=== PATIENT | male | born 1965 | race Two or more races ===

== ENCOUNTER → 2016-05-31 | Outpatient (CLI) | payer OTHER | END | disposition home or self-care (01) | LOC: LABPAT 12:58 | PROVIDERS: ATTEND Orthopaedic Surgery | DX: Z01.812 Encounter for preprocedural laboratory examination (principal) | CPT/HCPCS: 87070 ==

== ENCOUNTER → 2016-06-04 | Outpatient (CLI) | payer OTHER ==
[2016-06-04 13:11] LABS: Partial Thromboplastin Time 25.5 sec (22.0-30.0); Prothrombin Time 10.4 sec (9.0-12.0)
== END | disposition home or self-care (01) ==
LOC: LABPAT 12:49
PROVIDERS: ATTEND Orthopaedic Surgery
DX: Z01.812 Encounter for preprocedural laboratory examination (principal)
CPT/HCPCS: 36415; 84132; 85610; 85730

== ENCOUNTER 2016-06-21 10:43 | Inpatient (IN) | payer BC, OTHER ==
[2016-06-03 15:25] VITALS: BMI 32.9
--- NOTE | 2016-08-10 22:45 | HP ---
DATE OF ADMISSION: 08/11/2016 Jeancarlos Carreno is a 50-year-old patient seen with progressive right knee pain. After having treatment options discussed, he elected to proceed with right total knee arthroplasty. Consent regarding the procedure was obtained. Previous medical clearance has been obtained from Dr. Amadou Ulrich. Past medical history is noncontributory. PAST SURGICAL HISTORY: 1. Right knee arthroscopy. 2. Left total knee arthroplasty. His daily medications are ibuprofen as needed. ALLERGIES: NONE REPORTED. SOCIAL HISTORY: He smokes cigarettes. PHYSICAL EVALUATION OF RIGHT KNEE: Range of motion is negative 25 to 95. Tenderness along the medial and lateral joint lines. Crepitus along all 3 compartments. Ligaments stable. Hip rotation without pain. Distal neurovascular exam is intact. Right knee radiographs revealed severe osteoarthritis. IMPRESSION: Right knee osteoarthritis. PLAN: Right total knee arthroplasty.
[2016-08-11] MEDS ORDERED: ACETAMINOPHEN TAB 500 MG TAB PO ONE (05:00)
[2016-08-11] MEDS ORDERED: MELOXICAM 7.5 MG TAB PO ONE (05:00)
[2016-08-11] MEDS ORDERED: VANCOMYCIN 1,500 MG in SODIUM CHLORIDE 0.9% 250 ML IVPB ONE (05:00)
[2016-08-11] MEDS ORDERED: TRANEXAMIC ACID 1,000 MG in SODIUM CHLORIDE 0.9% 100 ML IVPB ONE ×4 (05:00)
[2016-08-11] MEDS ORDERED: LIDOCAINE 1% 20 ML VIAL (10MG/ML) FOR IV START INTRADERMA PRN (06:28)
[2016-08-11] MEDS ORDERED: MIDAZOLAM 2 MG/2 ML VIAL IV PRN (06:28)
[2016-08-11] MEDS ORDERED: DEXAMETHASONE SOD PHOSPHATE 10 MG/ML 1 ML VIAL IV ONE (06:28)
[2016-08-11] MEDS ORDERED: SCOPOLAMINE 1.5MG/72HR PATCH TRANSDERM ONE (06:28)
[2016-08-11] MEDS ORDERED: FAMOTIDINE 20 MG/2 ML VIAL IV PRN (06:28)
[2016-08-11] MEDS: LACTATED RINGERS 1,000 ML IV SCH (08:20)
[2016-08-11] MEDS ORDERED: ONDANSETRON 4 MG/2 ML VIAL IVP ONE (08:22)
[2016-08-11] MEDS ORDERED: ROPIVACAINE 1,100 MG, SODIUM CHLORIDE 0.9% 330 ML MISCELLANE PRN ×2 (10:02)
--- NOTE | 2016-08-11 10:04 | P.ONQ ---
Anesthesiology Proc Note - PNB - Peripheral Nerve Block Performed Right Adductor Canal Indication: Acute Post-Operative Pain, Requested by physician (Yolanda) Sedation Type: Sedate with meaningful contact maintained Preparation: Sterile Dressing Position: Supine Catheter: Indwelling (Pajunk) Needle Size: 100mm (4") Needle Gauge: 18 Technique: Ultrasound Injectate: 0.5% Ropivacaine (see comment for volume) (20cc) Blood Aspirated: No Pain Paresthesia on Injection Noted: No Resistance on Injection: Normal Events: Uneventful and Well Tolerated
[2016-08-11] MEDS ORDERED: ROPIVACAINE 246.25 MG, EPINEPHrine 0.5 MG, KETOROLAC 30 MG, cloNIDine HCL/PF 80 MCG, WA... MISCELLANE ONE ×5 (11:11)
[2016-08-11] MEDS ORDERED: HYDROmorphone (PF) 1 MG/ML ONE (11:51)
[2016-08-11] MEDS ORDERED: LIDOCAINE 1% INJ 10MG/ML (20 ML MDV) ONE (11:51)
[2016-08-11] MEDS ORDERED: TRANEXAMIC ACID 1,000 MG/10 ML VIAL ONE (11:51)
[2016-08-11] MEDS ORDERED: MIDAZOLAM 2 MG/2 ML VIAL ONE (11:51)
[2016-08-11] MEDS ORDERED: fentaNYL (PF) 50 MCG/ML 2 ML AMP ONE (11:51)
[2016-08-11] MEDS ORDERED: ROCURONIUM BROMIDE 10 MG/ML 10 ML VIAL IV ONE (11:51)
[2016-08-11] MEDS ORDERED: SODIUM CHLORIDE 0.9% 100 ML BAG ONE (11:51)
[2016-08-11] MEDS ORDERED: PROPOFOL 10 MG/ML 20 ML VIAL IV ONE (11:51)
[2016-08-11] MEDS ORDERED: NEOSTIGMINE 1 MG/ML 10 ML VIAL ONE (11:51)
[2016-08-11] MEDS ORDERED: ONDANSETRON 4 MG/2 ML VIAL ONE (11:51)
[2016-08-11] MEDS ORDERED: SUCCINYLCHOLINE CHLORIDE 100 MG/5 ML SYR IV ONE (11:51)
[2016-08-11] MEDS ORDERED: GLYCOPYRROLATE 0.2 MG/ML 2 ML VIAL ONE (11:51)
[2016-08-11] MEDS ORDERED: ceFAZolin 3,000 MG in SODIUM CHLORIDE 0.9% IRRIGATIO 3,000 ML IRRIGATION ONE (12:15)
[2016-08-11] MEDS ORDERED: LACTATED RINGERS 1,000 ML IV ONE ×2 (14:06→15:44)
--- NOTE | 2016-08-11 14:21 | P.OP ---
Date of Procedure: 08/11/16 Preoperative Diagnosis: Right knee osteoarthritis Postoperative Diagnosis: Right knee osteoarthritis Procedure(s) Performed: Right total knee arthroplasty Implants: 1. Microport size 7 right cemented femur 2. Microport size 7 cemented tibial component 3. Microport size 7 10 mm polyethylene tibial insert 4. Microport all polyethylene 38 mm cemented patella Anesthesia: regional (Adductor canal block), local, spinal Surgeon: Calvin Guerrero Application Chemist #1: Italo Amato Estimated Blood Loss (ml): 200 Pathology: other (Bone) Condition: stable Disposition: PACU Indications for Procedure: 50-year-old patient seen with symptomatic right knee osteoarthritis. After having treatment options discussed, he elected to proceed with right total knee arthroplasty. Operative Findings: See description of procedure Description of Procedure: Patient was taken to the operative suite. Patient underwent a spinal anesthetic by the department of anesthesia. Patient was given preoperative IV intake antibiotics and TXA. A well-padded tourniquet was placed about the right lower extremity. The lower extremity was then prepped and draped in the normal sterile orthopedic fashion. A standard anterior incision was made sharply through skin. Dissection was taken down through the subcutaneous soft tissues down to the extensor mechanism. A medial arthrotomy was performed, patella was everted and knee was flexed. There was advanced osteoarthritis noted. A proximal tibial cutting guide was positioned. Proximal tibial cut was made. A distal intramedullary femoral cutting guide was positioned, distal femoral cut made. We placed the appropriate sizing guide and selected the appropriate size. A distal 4-in-1 femoral cutting block was positioned, distal femoral cuts were made. At this point we did note some bleeding from the bone and the tourniquet was insufflated to 350. We now placed a trial femoral component into position, along with an appropriate size tibial tray and insert. We now took the knee through range of motion and had full extension good flexion and good overall soft tissue balance noted. The patella was everted and a flush cut made with patellar quad tendon. We templated the patella, appropriate drill holes were made. An appropriate trial patella was positioned , knee was taken through full range of motion with the patella tracking very nicely. The trial patella was removed. Drill holes were made through the femoral component. All trial components were removed after marking off the appropriate rotation of the tibia. Retractors were now positioned along the proximal tibia. An appropriate keel punch was made with the appropriate size tibial guide. At this point appropriate size implants were chosen and opened. The joint was irrigated copiously with pulse lavage mechanical irrigation. The posterior capsule was infiltrated local analgesic. Cautery was utilized in the posterior capsule area at this point. We mixed antibiotic methylmethacrylate. Once the methyl methacrylate was ready, the tibial component was cemented into place removing any excess methylmethacrylate. The femoral component was cemented into place removing the removing any excess methylmethacrylate. We then inserted the appropriate size polyethylene tibial insert. We made sure that it was locked into position. We took the knee into full extension, and then back in a flexion making sure we had removed any excess methylmethacrylate. The patellar component was then cemented down and secured with clamp. Excess methylmethacrylate removed. We kept the knee in full extension, patellar clamp in position until methylmethacrylate had hardened. Once it had hardened the patellar clamp was removed. The knee was taken through full range of motion. The patella tracked nicely. There was good soft tissue balancing. The tourniquet was now released. Additional hemostasis was achieved via electrocautery. A second gram of TXA was given. The wound again was irrigated with pulse lavage mechanical irrigation. The extensor mechanism was repaired with Vicryl. We checked the repair with range of motion and it was stable. The subcutaneous soft tissues were repaired with Vicryl in layers. The skin was approximated with pernio/Dermabond. Sterile dressings were applied followed by loose web roll and Agusto bandage. The patient was transferred to a bed, and taken to recovery in stable and satisfactory condition. [place] ORR assisted with the procedure.
[2016-08-11] MEDS ORDERED: NALOXONE 0.4 MG/ML 1 ML VIAL IV PRN (14:22)
[2016-08-11] MEDS ORDERED: HYDROmorphone 1 MG/ML 1 ML SYRINGE IVP PRN ×3 (14:22)
[2016-08-11] MEDS ORDERED: hydrOXYzine PAMOATE 25 MG CAP PO PRN (14:22)
[2016-08-11] MEDS ORDERED: HYDROcodone/APAP 7.5-325MG 1 EACH TAB PO PRN (14:22)
[2016-08-11] MEDS ORDERED: ONDANSETRON 4 MG/2 ML VIAL IVP PRN (14:22)
[2016-08-11] MEDS: HYDROmorphone 1 MG/ML 1 ML SYRINGE IVP PRN ×2 (14:37→14:42)
--- NOTE | 2016-08-11 15:00 | XR ---
EXAMINATION TYPE: XR knee limited RT DATE OF EXAM: 08/11/2016 2:48 PM CLINICAL HISTORY: Right knee pain and arthritis status post total knee replacement earlier today. TECHNIQUE: Portable AP and crosstable lateral views of the right knee are obtained immediately posto peratively. COMPARISON: None FINDINGS: Metallic hardware from total right knee arthroplasty is seen and appears satisfactory in a lignment and position. There is evidence of recent surgery with diffuse subcutaneous gas and soft ti ssue swelling noted. IMPRESSION: METALLIC HARDWARE FROM TOTAL RIGHT KNEE ARTHROPLASTY IS SATISFACTORY IN ALIGNMENT.
[2016-08-11] MEDS ORDERED: hydrALAZINE HCL 20 MG/ML 1 ML VIAL IVP ONE (15:05)
[2016-08-11] MEDS ORDERED: HYDROmorphone 1 MG/ML 1 ML SYRINGE IVP ONE (15:36)
[2016-08-11] MEDS: traMADol 50 MG TAB PO SCH ×2 (17:54→22:58)
[2016-08-11] MEDS: HYDROcodone/APAP 7.5-325MG 1 EACH TAB PO PRN (17:56)
[2016-08-11] MEDS: SENNOSIDES-DOCUSATE SODIUM 1 EACH TAB PO SCH (22:59)
[2016-08-11] MEDS: ENOXAPARIN 30 MG/0.3 ML SYRINGE SQ SCH (23:00)
[2016-08-12] MEDS: HYDROcodone/APAP 7.5-325MG 1 EACH TAB PO PRN ×4 (05:05→20:56)
[2016-08-12] MEDS: LACTATED RINGERS 1,000 ML IV SCH (06:14)
[2016-08-12 07:37] LABS: Basophils % (A) 0 %; CH 25.4; CHCM 30.7; Eosinophils # (A) 0.1 k/uL (0-0.7); Eosinophils % (A) 1 %; HCT 32.4 % (39.0-53.0); HDW 2.91; HGB 10.4 gm/dL (13.0-17.5); Hypochromasia Moderate; Luc # (Auto) 0.12; Luc % (Auto) 1; Lymphocytes # (A) 3.1 k/uL (1.0-4.8); Lymphocytes % (A) 25 %; MCH 26.5 pg (25.0-35.0); MCV 82.9 fL (80.0-100.0); Mean Platelet Volume 6.7; Monocytes # (A) 0.8 k/uL (0-1.0); Monocytes % (A) 7 %; Neutrophils # (A) 8.3 k/uL (1.3-7.7); Neutrophils % (A) 66 %; RBC 3.91 m/uL (4.30-5.90); RDW 15.3 % (11.5-15.5); WBC 12.5 k/uL (3.8-10.6); WBC (Perox) 11.64
[2016-08-12] MEDS: traMADol 50 MG TAB PO SCH ×4 (07:56→20:56)
[2016-08-12] MEDS: MELOXICAM 7.5 MG TAB PO SCH (07:56)
[2016-08-12] MEDS: MULTIVITAMINS, THERA 1 EACH TAB PO SCH (07:56)
[2016-08-12] MEDS: ENOXAPARIN 30 MG/0.3 ML SYRINGE SQ SCH ×2 (07:56→20:57)
[2016-08-12] MEDS: FAMOTIDINE 20 MG TAB PO SCH (10:29)
--- NOTE | 2016-08-12 11:06 | P.PN ---
Subjective Principal diagnosis: Status post right total knee arthroplasty Patient is seen today resting in his hospital bed, he appears comfortable. His pain is well-controlled at this time. Exam today well with therapy. He denies any headaches, lightheadedness, chest pain, shortness of breath. Objective - Vital Signs Vital signs: Vital Signs Temp 98.2 F 08/12/16 07:00 Pulse 56 L 08/12/16 08:00 Resp 18 08/12/16 08:00 BP 124/56 08/12/16 07:00 Pulse Ox 98 08/12/16 07:00 Intake & Output 08/11/16 08/12/16 08/12/16 18:59 06:59 18:59 Intake Total 2431 240 Output Total 390 1700 750 Balance 2041 -1460 -750 Weight 92.533 kg Intake: IV 2251 240 Lactated Ringers 1,000 ml 240 @ 20 mls/hr IV .Q24H [facility] Rx#:[id number] Oral 180 Output: Urine 190 1700 750 Uretheral (Kam) 750 Estimated Blood Loss 200 Other: Voiding Method Indwelling Catheter Indwelling Catheter Indwelling Catheter # Voids 1 - Exam Right lower extremity: Incision is clean, dry, and intact. Minimal soft tissue swelling present throughout the right lower extremity. Calf is soft, no tenderness with palpation. Plantar flexion, dorsiflexion, EHL, FHL are intact. Sensory exam light touch throughout the extremities intact, cap refills less than 2 seconds. - Labs CBC & Chem 7: 08/12/16 06:59 08/11/16 08:18 Labs: Abnormal Lab Results - Last 24 Hours (Table) 08/12/16 Range/Units 06:59 WBC 12.5 H (3.8-10.6) k/uL RBC 3.91 L (4.30-5.90) m/uL Hgb 10.4 L (13.0-17.5) gm/dL Hct 32.4 L (39.0-53.0) % Neutrophils # 8.3 H (1.3-7.7) k/uL Assessment and Plan Plan: Assessment: 1. Postop day #1 status post right total knee arthroplasty Plan: 1. Pain control, continue supportive oral medication 2. GI and DVT prophylaxis, continue Lovenox 3. Ice and elevate/daily dressing changes 4. Encourage incentive spirometer 5. Medical recommendations 6. Discharge planning: Patient will be likely discharged home tomorrow Time with Patient: Less than 30
--- NOTE | 2016-08-12 11:08 | P.DS ---
Providers Date of admission: 08/11/16 07:54 Expected date of discharge: 08/13/16 Attending physician: Calvin Guerrero Consults: 08/11/16 14:22 Consult Physician Routine Consulting Provider: Amadou Ulrich Consult Reason/Comments: Medical management Do you want consulting provider notified?: Yes Primary care physician: Stated None Hospital Course: Date of admission: 08/11/2016 Date of discharge: 08/13/2016 Admission diagnosis: Status post right total knee arthroplasty Discharge diagnosis: Same Attending physician: Dr. Dr. Guerrero Surgical procedures: Right total knee arthroplasty Brief history: Patient is a 50-year-old male with a history of progressive primary right knee osteoarthritis. At this point patient has failed conservative treatment measures and has opted to proceed with a elective right total knee arthroplasty. Hospital course: Details of patient's surgery can be found in operative report. Patient tolerated the procedure well and was subsequently transported to orthopedic floor. Patient's orthopeidc and medical care was provided daily. Patient had daily laboratory tests performed for evaluation of overall blood counts. Patient had daily physical therapy to include strengthening range of motion as well as education with walker ambulation. Patient had daily CPM usage as part of their physical therapy program. Patient was treated with Lovenox for their postoperative DVT prophylaxis during their inpatient stay. Patient was noted to have a relatively uneventful postoperative course. Patient reported satisfactory pain control with oral pain medications by postoperative day 0. Patient showed satisfactory progress with physical therapy. Patient moved steadily through the program and had no difficulty meeting the goals by postoperative day 2. Given patient's otherwise satisfactory course and having met physical therapy goals, plan is to discharge patient home on postoperative day 2. Discharge condition/disposition: Patient will be discharged home in stable condition. Discharge medications: Instructions are given on resumption of patient's normal daily medications per primary care recommendation, in addition patient will be prescribed [place] 7.5 mg/325 mg, tramadol 50 mg, Colace 100 mg, Pepcid 20 mg, aspirin 325 mg. Discharge instructions: 1. Wound care and infection precautions, [keep incision dry and covered while showering], no lotions, creams, moisturizers. No soaking, tubs, pools, hottubs. Do not scrub over the incision. 2. Weight-bear [as tolerated] with walker / cane until follow-up. 3. Ice and elevate when necessary. Do not exceed 20 minutes per hour with ice pack. 4. Utilize compression sleeve until seen at first follow up appointment. 5. Visiting nursing care. 6. Home physical therapy [including home CPM]. 7. Pain meds and anticoagulants per prescription. 8. Pain medication has potential to cause constipation. Increase oral fluid and fiber intake. Contact primary care provider if you have not had a bowel movement within 48 hours after discharge 9. No anti-inflammatory medication until discussed at first post operative visit, this including Motrin, Aleve, Mobic, Diclofenac. 10. Follow up in office at 2 weeks postop with Elgin Amato PA-C 11. Follow up with your primary care doctor 7-10 days after discharge. 12. Contact [facility] with any questions, . Procedures: Right total knee arthroplasty Patient Condition at Discharge: Good Plan - Discharge Summary New Discharge Prescriptions: Aspirin 325 mg PO BID #60 tab Docusate [Colace] 100 mg PO DAILY #30 capsule Famotidine [Pepcid] 20 mg PO DAILY #30 tablet HYDROcodone/APAP 7.5-325MG [[place] 7.5] 1 - 2 each PO Q6HR PRN #60 tab PRN Reason: Pain traMADol HCl [Ultram] 50 mg PO Q6H PRN #40 tab PRN Reason: Pain Discharge Medication List Aspirin 325 mg PO BID #60 tab 08/13/16 [Rx] Docusate [Colace] 100 mg PO DAILY #30 capsule 08/13/16 [Rx] Famotidine [Pepcid] 20 mg PO DAILY #30 tablet 08/13/16 [Rx] HYDROcodone/APAP 7.5-325MG [[place] 7.5] 1 - 2 each PO Q6HR PRN #60 tab 08/13/16 [ Rx] traMADol HCl [Ultram] 50 mg PO Q6H PRN #40 tab 08/13/16 [Rx] Follow up Appointment(s)/Referral(s): Amadou Ulrich DO [Doctor of Osteopathic Medicine] - 08/24/16 11:40 am Italo Amato PAC [PHYSICIAN STORE RECEIVER] - 08/27/16 2:40 pm Activity/Diet/Wound Care/Special Instructions: Orthopedic Discharge Instructions: 1. Wound care and infection precautions, keep incision dry and covered while showering, no lotions, creams, moisturizers. No soaking, pools, hot tubs. Do not scrub over incision. 2. Weight-bear as tolerated with walker / cane until follow-up. 3. Ice and elevate when necessary. Do not exceed 20 minutes per hour with ice pack. 4. Utilize compression sleeve until seen at first follow up appointment. 5. Visiting nursing care. 6. Home physical therapy including home CPM. 7. Pain meds and anticoagulants per prescription. 8. Pain medication has potential to cause constipation. Increase oral fluid and fiber intake. Contact primary care provider if you have not had a bowel movement within 48 hours after discharge. 9. No anti-inflammatory medication until discussed at first post operative visit, this including Motrin, Aleve, Mobic, Diclofenac. 10. Follow up in office at 2 weeks postop with Elgin Amato PA-C 11. Follow up with your primary care doctor 7-10 days after discharge. 12. Contact [facility] with any questions, . Discharge Disposition: HOME WITH HOME HEALTH SERVICES
--- NOTE | 2016-08-12 13:38 | P.CONS ---
History of Present Illness - Reason for Consult Consult date: 08/11/16 Medical management Requesting physician: Calvin Guerrero - Chief Complaint Right knee pain - History of Present Illness Patient is a 50-year-old male, patient of Dr. Ulrich in the outpatient setting, with past medical history detailed below significant for right knee osteoarthritis that has not responded to medical management as an outpatient. Patient was admitted to the hospital for elective right total knee arthroplasty on 08/11/[address] Guerrero. Patient tolerated procedure well. Patient is evaluated on the surgical floor where he is postop day #1. Patient is doing well. Denies chills, fevers, nausea, vomiting, shortness of breath, chest pain , abdominal pain, numbness or tingling. Right knee pain controlled with current pain regimen. Patient is urinating without difficulty. Patient is tolerating diet. Afebrile. Past Medical History Past Medical History: Osteoarthritis (OA), Pneumonia Additional Past Medical History / Comment(s): OCC. BLEEDING HEMORRHOIDS. History of Any Multi-Drug Resistant Organisms: None Reported Past Surgical History: Joint Replacement, Orthopedic Surgery Additional Past Surgical History / Comment(s): 02/16/16 total L knee arthroplasty. Other surgical hx: RIGHT KNEE ARTHROSCOPY(1983), COLONOSCOPY Past Anesthesia/Blood Transfusion Reactions: No Reported Reaction Additional Past Anesthesia/Blood Transfusion Reaction / Comm: NO HX BLOOD TRANSFUSION Past Psychological History: No Psychological Hx Reported Smoking Status: Current every day smoker Past Alcohol Use History: Occasional Additional Past Alcohol Use History / Comment(s): DRINKS 8-10 12 OZ BEERS PER WEEK. SMOKES 2 PPD. , HAS BEEN SMOKING FOR 30 + YEARS. Past Drug Use History: None Reported - Past Family History Mother Family Medical History: Cancer Additional Family Medical History / Comment(s): STOMACH Father Family Medical History: Cancer Medications and Allergies Home Medications Medication Instructions Recorded Confirmed Type No Known Home Medications [No 06/03/16 08/11/16 History Known Home Medications] Allergies Allergy/AdvReac Type Severity Reaction Status Date / Time No Known Allergies Allergy Verified 08/11/16 08:12 Physical Exam Vitals: Vital Signs Temp Pulse Resp BP Pulse Ox 08/12/16 08:00 56 L 18 08/12/16 07:00 98.2 F 56 L 18 124/56 98 08/12/16 05:05 65 116/62 08/12/16 04:00 16 08/11/16 23:00 98.4 F 63 16 97/54 95 08/11/16 20:00 16 08/11/16 19:45 98.4 F 79 16 108/66 97 08/11/16 18:00 79 165/90 08/11/16 17:45 77 155/74 08/11/16 17:30 55 L 150/86 08/11/16 17:15 66 141/77 08/11/16 17:00 64 118/68 08/11/16 16:45 75 111/75 08/11/16 16:30 53 L 118/68 08/11/16 16:15 53 L 133/68 08/11/16 16:00 98.2 F 62 16 143/72 95 08/11/16 15:45 59 L 16 140/69 95 08/11/16 15:38 60 16 136/72 96 08/11/16 15:30 56 L 16 157/80 96 08/11/16 15:15 63 18 154/75 96 08/11/16 15:00 56 L 16 173/82 96 08/11/16 14:50 56 L 16 178/79 92 L 08/11/16 14:45 50 L 18 191/92 98 08/11/16 14:30 98.6 F 70 14 200/99 98 Intake and Output 08/11/16 08/12/16 08/12/16 22:59 06:59 14:59 Intake Total 260 160 Output Total 50 1700 750 Balance 210 -1540 -750 Intake: IV 80 160 Lactated Ringers 1,000 ml 80 160 @ 20 mls/hr IV .Q24H [facility] Rx#:[id number] Oral 180 Output: Urine 50 1700 750 Uretheral (Kam) 750 Other: Voiding Method Indwelling Catheter Indwelling Catheter # Voids 1 Weight 92.533 kg GENERAL: Pt awake and alert, well-appearing, well-nourished, and in no acute distress. HEAD: Atraumatic, normocephalic. EYES: Pupils equal, round, and reactive to light, extraocular movements intact, sclera anicteric, conjunctiva are normal. ENT: Moist mucous membranes. NECK: Supple without lymphadenopathy or JVD. LUNGS: Breath sounds clear to auscultation bilaterally. No wheezes, rales, or rhonchi. HEART: Heart S1, S2, no S3 or S4. Regular rate and rhythm. No murmurs, rubs or gallops. ABDOMEN: Soft, nontender, nondistended, normoactive bowel sounds. No guarding, no rebound. No masses or organomegaly appreciated. EXTREMITIES: 2+ peripheral pulses. Right knee dressing dry and intact. No calf pain. NEUROLOGICAL: Pt oriented x 3. Cranial nerves II through XII grossly intact. Strength and sensation grossly intact. PSYCH: Normal mood, normal affect. SKIN: Warm, dry, intact. Normal turgor. No rashes or lesions. Results CBC & Chem 7: 08/12/16 06:59 08/11/16 08:18 Labs: Abnormal Lab Results - Last 24 Hours (Table) 08/12/16 Range/Units 06:59 WBC 12.5 H (3.8-10.6) k/uL RBC 3.91 L (4.30-5.90) m/uL Hgb 10.4 L (13.0-17.5) gm/dL Hct 32.4 L (39.0-53.0) % Neutrophils # 8.3 H (1.3-7.7) k/uL Assessment and Plan Plan: Impression and plan: 1. Right knee osteoarthritis status post total right knee arthroplasty on 08/11. 2. Leukocytosis, suspect reactive. 3. Anemia, postop suspect minimal blood loss and hemodilution. 4. 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 5. Nicotine dependence. 6. Alcohol use. Continue surgical management by surgical service. Continue supportive treatment and pain management. Increase activity as tolerated. Continue DVT prophylaxis. Encourage incentive spirometry use. Patient will follow-up with Dr. Ulrich in the office in 1 week after discharge. The above impression and plan have been discussed and directed by Dr. Ulrich. [place]o QUINTANA acting as scribe for Dr. Ulrich.
[2016-08-12 15:05] VITALS: RESP 16
[2016-08-12] MEDS: SENNOSIDES-DOCUSATE SODIUM 1 EACH TAB PO SCH (20:55)
[2016-08-12 23:34] VITALS: BP 130/66
[2016-08-13] MEDS: HYDROcodone/APAP 7.5-325MG 1 EACH TAB PO PRN ×3 (02:10→12:10)
[2016-08-13 07:04] VITALS: PULSE 58; TEMP 97.3
[2016-08-13] MEDS: ENOXAPARIN 30 MG/0.3 ML SYRINGE SQ SCH (07:04)
[2016-08-13] MEDS: MULTIVITAMINS, THERA 1 EACH TAB PO SCH (07:05)
[2016-08-13] MEDS: MELOXICAM 7.5 MG TAB PO SCH (07:05)
[2016-08-13] MEDS: FAMOTIDINE 20 MG TAB PO SCH (07:05)
[2016-08-13] MEDS: LACTATED RINGERS 1,000 ML IV SCH (07:08)
--- NOTE | 2016-08-13 10:16 | P.PN ---
Subjective Principal diagnosis: Status post right total knee arthroplasty Patient is seen today resting in his hospital bed, he appears comfortable. His pain is well-controlled at this time. Exam today well with therapy. He denies any headaches, lightheadedness, chest pain, shortness of breath. Objective - Vital Signs Vital signs: Vital Signs Temp 97.3 F L 08/13/16 07:00 Pulse 58 L 08/13/16 08:00 Resp 16 08/13/16 08:00 BP 130/66 08/12/16 23:00 Pulse Ox 98 08/13/16 07:00 Intake & Output 08/12/16 08/13/16 08/13/16 18:59 06:59 18:59 Intake Total 200 1050 Output Total 1150 1850 600 Balance -950 -800 -600 Intake: IV 200 Lactated Ringers 1,000 ml 200 @ 20 mls/hr IV .Q24H [facility] Rx#:[id number] Oral 1050 Output: Urine 1150 1850 600 Uretheral (Kam) 750 Other: Voiding Method Urinal Urinal Urinal # Voids 3 2 - Exam Right lower extremity: Incision is clean, dry, and intact. Small hematoma is present on the lateral aspect of the distal incision, the skin is intact. Minimal soft tissue swelling present throughout the right lower extremity. Calf is soft, no tenderness with palpation. Plantar flexion, dorsiflexion, EHL, FHL are intact. Sensory exam light touch throughout the extremities intact, cap refills less than 2 seconds. - Labs CBC & Chem 7: 08/12/16 06:59 08/11/16 08:18 Assessment and Plan Plan: Assessment: 1. Postop day #2 status post right total knee arthroplasty Plan: 1. Pain control, continue supportive oral medication 2. GI and DVT prophylaxis, will be discharged on aspirin 325 mg twice a day 3. Ice and elevate/daily dressing changes 4. Encourage incentive spirometer 5. Medical recommendations 6. Discharge planning: Patient will be discharged home today Time with Patient: Less than 30
== END 2016-08-13 12:25 | disposition home health service (06) | DRG 470 ==
LOC: 2ORMAIN 08-11 07:54 → 3SUR 08-11 14:27
PROVIDERS: ADMIT Orthopaedic Surgery; ATTEND Orthopaedic Surgery
PROC: 0SRC0J9 Replacement of Right Knee Joint with Synthetic Substitute, Cemented, Open Approach (ICD-10-PCS; principal; 2016-08-11 11:10)
DX: M17.11 Unilateral primary osteoarthritis, right knee (principal); D50.0 Iron deficiency anemia secondary to blood loss (chronic); F17.210 Nicotine dependence, cigarettes, uncomplicated; K64.9 Unspecified hemorrhoids; Z96.652 Presence of left artificial knee joint
CPT/HCPCS: 84132; 85025; 88300

== ENCOUNTER → 2016-10-21 | Outpatient (CLI) | payer BC ==
[2016-10-21 13:30] LABS: Basophils # (A) 0.1 k/uL (0-0.2); Basophils % (A) 1 %; CHCM 30.6; Eosinophils # (A) 0.3 k/uL (0-0.7); Eosinophils % (A) 4 %; HCT 38.9 % (39.0-53.0); HDW 2.99; HGB 12.1 gm/dL (13.0-17.5); Hypochromasia Moderate; Luc # (Auto) 0.15; Luc % (Auto) 2; Lymphocytes # (A) 2.7 k/uL (1.0-4.8); Lymphocytes % (A) 33 %; MCH 25.4 pg (25.0-35.0); MCV 81.9 fL (80.0-100.0); Mean Platelet Volume 6.6; Monocytes # (A) 0.5 k/uL (0-1.0); Monocytes % (A) 6 %; Neutrophils # (A) 4.4 k/uL (1.3-7.7); Neutrophils % (A) 54 %; RBC 4.75 m/uL (4.30-5.90); RDW 15.5 % (11.5-15.5); WBC 8.1 k/uL (3.8-10.6)
== END | disposition home or self-care (01) ==
LOC: LABPAT 13:11
PROVIDERS: ATTEND Orthopaedic Surgery
DX: Z01.812 Encounter for preprocedural laboratory examination (principal); T81.89XD Other complications of procedures, not elsewhere classified, subsequent encounter
CPT/HCPCS: 85025

== ENCOUNTER 2016-10-25 12:13 | Day surgery (SDC) | payer BC ==
[2016-10-21 12:10] VITALS: BMI 31.3
--- NOTE | 2016-10-24 14:10 | HP ---
DATE OF SURGERY: 10/25/2016 Jeancarlos Carreno is a 51-year-old patient seen with a persistent nonhealing wound, distal incision area, right knee with history of total knee arthroplasty. At his point I recommended irrigation and debridement with secondary closure of that right knee persistent wound. I discussed the procedure , risks, complications, benefits, and recovery. Patient was agreeable. Consent was obtained. Past medical history is noncontributory. Past surgical history is right knee arthroscopy, right total knee arthroplasty, left total knee arthroplasty. DAILY MEDICATIONS: [place] as needed. ALLERGIES: NONE REPORTED. SOCIAL HISTORY: Patient currently smokes cigarettes, two packs per day. PHYSICAL EVALUATION OF THE RIGHT KNEE: Range of motion is -3 to 90 degrees. There is no pain with ( ) motion. There is no effusion present. There is a persistent wound along the distal incision area measuring 1 x 1 cm. There is no evidence for erythema or infective process. Ligaments are stable. Homans and Av are negative. Distal neurovascular exam is intact. Right knee radiographs revealed a stable appearing total knee arthroplasty. IMPRESSION: Nonhealing right knee distal incisional wound. PLAN: Irrigation and debridement secondary to closure right knee wound. JYOTHI
[~2016-10-25 12:13] MED LIST: DEXAMETHASONE SOD PHOSPHATE 10 MG/ML 1 ML VIAL IV ONE; LACTATED RINGERS 1,000 ML IV SCH; LIDOCAINE 1% 20 ML VIAL (10MG/ML) FOR IV START INTRADERMA PRN; MIDAZOLAM 2 MG/2 ML VIAL IV PRN; ONDANSETRON 4 MG/2 ML VIAL IVP ONE; SCOPOLAMINE 1.5MG/72HR PATCH TRANSDERM ONE; ceFAZolin 2 GM in SODIUM CHLORIDE 0.9% 100 ML IVPB ONE
[2016-10-25 12:35] VITALS: RESP 16
[2016-10-25] MEDS ORDERED: PROPOFOL 10 MG/ML 20 ML VIAL IV ONE (15:22)
[2016-10-25] MEDS ORDERED: fentaNYL (PF) 50 MCG/ML 2 ML AMP ONE (15:22)
[2016-10-25] MEDS ORDERED: LIDOCAINE 1% INJ 10MG/ML (20 ML MDV) ONE (15:22)
[2016-10-25] MEDS ORDERED: BUPIVACAINE (PF) 0.25% 30 ML VIAL SQ ONE (15:40)
[2016-10-25 16:02] VITALS: TEMP 98.4
--- NOTE | 2016-10-25 16:02 | P.OP ---
Date of Procedure: 10/25/16 Preoperative Diagnosis: Nonhealing wound right knee Postoperative Diagnosis: Same Procedure(s) Performed: Incision with irrigation debridement and secondary closure right knee wound Implants: Anesthesia: MAC Surgeon: Calvin Guerrero Photography Editor #1: Italo Amato Estimated Blood Loss (ml): 5 Pathology: none sent Condition: stable Disposition: PACU Indications for Procedure: 51-year-old patient seen with a persistent right knee wound. I recommended incision with irrigation debridement. Patient was agreeable and consent was obtained. Operative Findings: see description of procedure Description of Procedure: Patient was taken to the operative suite. Patient underwent monitored anesthesia by the department of anesthesia. He received preoperative IV antibiotics. The right lower extremity was now prepped and draped in the normal sterile orthopedic fashion. The nonhealing wound measured 1.5 cm x 1 cm. I performed an incisional debridement with a #15 scalpel along the edges. We got down to some good bleeding tissue. I now debrided the deep portion utilizing a #15 blade and a ronger intermittently to perform an excisional debridement. We got down to some bleeding tissue. There is no evidence that the wound penetrated deeper than the subcutaneous tissues. The wound was irrigated. The skin margins were approximated with #2-0 nylon suture. The surrounding subcuticular area was infiltrated with quarter percent plain Marcaine. Sterile dressings were applied. Patient was awakened, transferred to a bed and then recovery having tolerated procedure well. No tourniquet was utilized. The [facility] assisted procedure.
[2016-10-25] MEDS: HYDROmorphone 1 MG/ML 1 ML SYRINGE IVP PRN ×2 (16:22→16:27)
[2016-10-25] MEDS ORDERED: LACTATED RINGERS 1,000 ML IV ONE (16:31)
[2016-10-25] MEDS ORDERED: HYDROcodone/APAP 5-325MG 1 EACH TAB PO ONE (16:50)
[2016-10-25 17:19] VITALS: BP 157/86; PULSE 66
== END 2016-10-25 18:00 | disposition home or self-care (01) ==
LOC: OR 12:13
PROVIDERS: ATTEND Orthopaedic Surgery
DX: T81.89XA Other complications of procedures, not elsewhere classified, initial encounter (principal); Z96.653 Presence of artificial knee joint, bilateral; F17.210 Nicotine dependence, cigarettes, uncomplicated
CPT/HCPCS: 11042; J1100; J0690; J2405; J2001; J3010; J1170; J2704

== ENCOUNTER 2018-04-25 16:57 | Emergency (ER) | payer BC, OTHER ==
[2018-04-25 17:02] VITALS: RESP 18
[2018-04-25] MEDS ORDERED: IBUPROFEN 600 MG TAB PO STA (17:13)
--- NOTE | 2018-04-25 17:16 | ED ---
General Adult HPI - General Chief complaint: Extremity Problem,Nontraumatic Stated complaint: right wrist swelling; itchy Time Seen by Provider: 04/25/18 17:09 Source: patient, RN notes reviewed, old records reviewed Mode of arrival: ambulatory Limitations: no limitations - History of Present Illness Initial comments: 52-year-old male patient with pmhx of osteoarthritis of right knee presents to ED with itchy and red right wrist. Patient states this has been going on for approximately 2 days. Patient also has a secondary complaint of a slip and fall today in which he fell on his outstretched right wrist. Patient states that he has a small amount of pain, however his primary complaint is the redness and itchiness. Patient has full range of motion of wrist. Patient denies any other injury during fall. Patient denies any trauma to head or neck or loss consciousness. Patient denies nausea vomiting diarrhea, fever or chills. Patient denies use of blood thinners. Pt denies any recent penetrating trauma. Patient denies other complaints. Systemic: Pt denies fatigue, myalgia, fever/chills. Pt denies weakness, night sweats, weight loss. Neuro: Pt denies headache, visual disturbances, syncope or pre-syncope. HEENT: Pt denies ocular discharge or irritation, otalgia, rhinorrhea, pharyngitis or notable lymphadenopathy. Cardiopulmonary: Pt denies chest pain, SOB, heart palpitations, dyspnea on exertion. Abdominal/GI: Pt denies abdominal pain, n/v/d. : Pt denies dysuria, burning w/ urination, frequency/urgency. Denies new onset urinary or bowel incontinence. MSK: Pt denies myalgia, loss of strength or function in extremities. Neuro: Pt denies new onset weakness, paresthesias. - Related Data Previous Rx's Medication Instructions Recorded Cephalexin [Keflex] 500 mg PO Q8HR #21 cap 10/25/16 Hydrocodone/Acetaminophen [[place] 1 each PO Q6HR PRN #20 tab 10/25/16 5-325] Cephalexin [Keflex] 500 mg PO Q6HR 10 Days #40 cap 04/25/18 Allergies Allergy/AdvReac Type Severity Reaction Status Date / Time No Known Allergies Allergy Verified 04/25/18 17:02 Review of Systems ROS Statement: Those systems with pertinent positive or pertinent negative responses have been documented in the HPI. ROS Other: All systems not noted in ROS Statement are negative. Past Medical History Past Medical History: Osteoarthritis (OA), Pneumonia Additional Past Medical History / Comment(s): pneumonia in July History of Any Multi-Drug Resistant Organisms: None Reported Past Surgical History: Joint Replacement, Orthopedic Surgery Additional Past Surgical History / Comment(s): 02/16/16 total L knee arthroplasty. knee arthroscopies, COLONOSCOPY, right knee replaced July 2016 Past Anesthesia/Blood Transfusion Reactions: No Reported Reaction Additional Past Anesthesia/Blood Transfusion Reaction / Comment(s): NO HX BLOOD TRANSFUSION Past Psychological History: No Psychological Hx Reported Smoking Status: Current every day smoker Past Alcohol Use History: Occasional Past Drug Use History: Marijuana - Past Family History Mother Family Medical History: Cancer Additional Family Medical History / Comment(s): STOMACH Father Family Medical History: Cancer General Exam - General Exam Comments Initial Comments: Constitutional: NAD, AOX3, Pt has pleasant affect. HEENT: NC/AT, trachea midline, neck supple, no lymphadenopathy. Posterior pharynx non erythematous, without exudates. External ears appear normal, without discharge. Mucous membranes moist. Eyes PERRLA, EOM intact. There is no scleral icterus. No pallor noted. Cardiopulmonary: RRR, no murmurs, rubs or gallops, no JVD noted. Lungs CTAB in anterior and posterior baird. No peripheral edema. Abdominal exam: Abdomen soft and non-distended. Abdomen non-tender to palpation in all 4 quadrants. Bowel sounds active in LLQ. No hepatosplenomegaly. No ecchymosis Neuro: CN II-XII grossly intact. No nuchal rigidity. MSK: Mild amount of erythema at distal radius of R wrist. Distal radius is mildly tender to palpation. No snuffbox tenderness. Full active ROM of wrist. Radial pulse +2, capillary refill <2 seconds. No posterior calf tenderness bilaterally, homans sign negative bilaterally. Posterior tibialis and radial pulse +2 bilaterally. Sensation intact in upper and lower extremities. Full active ROM in upper and lower extremities, 5/5 stregnth. Limitations: no limitations Course Vital Signs 04/25/18 16:59 Temperature 98 F Pulse Rate 77 Respiratory 18 Rate Blood Pressure 185/78 O2 Sat by Pulse 97 Oximetry Medical Decision Making - Medical Decision Making 52-year-old male patient with pmhx of osteoarthritis of right knee presents to ED with itchy and red right wrist. Patient states this has been going on for approximately 2 days. Patient also has a secondary complaint of a slip and fall today in which he fell on his outstretched right wrist. Patient states that he has a small amount of pain, however his primary complaint is the redness and itchiness. Pt VSS, afebrile. Physical exam displayed: Mild amount of erythema at distal radius of R wrist. No streaking. Distal radius is mildly tender to palpation. Full active ROM of wrist. Radial pulse +2, capillary refill <2 seconds. Laboratory investigations revealed nonimpressive CBC/CMP. Plain film of R wrist and hand did not display acute process. Pt dx with cellulitis, placed on keflex. Pt to f/u with PCP in 1-2 days. Pt to return to ED if new s/sx develop or if condition worsens in anyway. Case discussed in depth with Dr. Manzano. On repeat exam pt had mild snuffbox tenderness, placed in thumb spica splint, pt to f/u with orthopedic consult tomorrow. - Lab Data Result diagrams: 04/25/18 17:16 04/25/18 17:16 Lab Results 04/25/18 04/25/18 Range/Units 17:16 17:16 WBC 10.6 (3.8-10.6) k/uL RBC 5.58 (4.30-5.90) m/uL Hgb 13.9 (13.0-17.5) gm/dL Hct 44.7 (39.0-53.0) % MCV 80.1 (80.0-100.0) fL MCH 24.9 L (25.0-35.0) pg MCHC 31.0 (31.0-37.0) g/dL RDW 15.5 (11.5-15.5) % Plt Count 507 H (150-450) k/uL Neutrophils % 58 % Lymphocytes % 32 % Monocytes % 5 % Eosinophils % 3 % Basophils % 1 % Neutrophils # 6.1 (1.3-7.7) k/uL Lymphocytes # 3.3 (1.0-4.8) k/uL Monocytes # 0.5 (0-1.0) k/uL Eosinophils # 0.4 (0-0.7) k/uL Basophils # 0.1 (0-0.2) k/uL Hypochromasia Slight Sodium 137 (137-145) mmol/L Potassium 4.5 (3.5-5.1) mmol/L Chloride 104 (98-107) mmol/L Carbon Dioxide 23 (22-30) mmol/L Anion Gap 10 mmol/L BUN 8 L (9-20) mg/dL Creatinine 0.68 (0.66-1.25) mg/dL Est GFR (CKD-EPI)AfAm >90 (>60 ml/min/1.73 sqM) Est GFR (CKD-EPI)NonAf >90 (>60 ml/min/1.73 sqM) Glucose 113 H (74-99) mg/dL Calcium 8.9 (8.4-10.2) mg/dL Total Bilirubin 0.4 (0.2-1.3) mg/dL AST 27 (17-59) U/L ALT 44 (21-72) U/L Alkaline Phosphatase 136 H (38-126) U/L Total Protein 7.6 (6.3-8.2) g/dL Albumin 4.2 (3.5-5.0) g/dL Disposition Clinical Impression: Cellulitis, Sprain of wrist, left Disposition: HOME SELF-CARE Condition: Stable Instructions (If sedation given, give patient instructions): Cellulitis (ED) Additional Instructions: Patient to adhere to previously discussed treatment plan and will take medication(s) as directed. Patient to follow up with PCP in 1-2 days. Patient to return to ED if symptoms do not improve. Prescriptions: Cephalexin [Keflex] 500 mg PO Q6HR 10 Days #40 cap Is patient prescribed a controlled substance at d/c from ED?: No Referrals: Amadou Ulrich DO [Primary Care Provider] - 1-2 days Lamin Panchal MD [STAFF PHYSICIAN] - 1-2 days Time of Disposition: 17:52
[2018-04-25 17:30] LABS: Basophils # (A) 0.1 k/uL (0-0.2); Basophils % (A) 1 %; Eosinophils # (A) 0.4 k/uL (0-0.7); Eosinophils % (A) 3 %; HCT 44.7 % (39.0-53.0); HGB 13.9 gm/dL (13.0-17.5); Hypochromasia Slight; Lymphocytes # (A) 3.3 k/uL (1.0-4.8); Lymphocytes % (A) 32 %; MCH 24.9 pg (25.0-35.0); MCV 80.1 fL (80.0-100.0); Mean Platelet Volume 5.8; Monocytes # (A) 0.5 k/uL (0-1.0); Monocytes % (A) 5 %; Neutrophils # (A) 6.1 k/uL (1.3-7.7); Neutrophils % (A) 58 %; Platelet Count 507 k/uL (150-450); RBC 5.58 m/uL (4.30-5.90); RDW 15.5 % (11.5-15.5); WBC 10.6 k/uL (3.8-10.6)
[2018-04-25 17:37] LABS: ALT 44 U/L (21-72); AST 27 U/L (17-59); Albumin 4.2 g/dL (3.5-5.0); Alkaline Phosphatase 136 U/L (38-126); Anion Gap 10 mmol/L; Blood Urea Nitrogen 8 mg/dL (9-20); Calcium 8.9 mg/dL (8.4-10.2); Carbon Dioxide 23 mmol/L (22-30); Chloride 104 mmol/L (98-107); Glucose 113 mg/dL (74-99); Potassium 4.5 mmol/L (3.5-5.1); Sodium 137 mmol/L (137-145); Total Bilirubin 0.4 mg/dL (0.2-1.3); Total Protein 7.6 g/dL (6.3-8.2)
--- NOTE | 2018-04-25 17:42 | XR ---
EXAMINATION TYPE: XR wrist complete RT DATE OF EXAM: 04/25/2018 COMPARISON: NONE HISTORY: Wrist pain TECHNIQUE: 4 views FINDINGS: There is some spurring at the scaphoid trapezium joint and the first carpometacarpal joint. I see no fracture nor dislocation. Metacarpals are intact. IMPRESSION: There is some osteoarthritis. No fracture seen.
--- NOTE | 2018-04-25 17:43 | XR ---
EXAMINATION TYPE: XR hand complete RT DATE OF EXAM: 04/25/2018 COMPARISON: NONE HISTORY: Hand and wrist pain TECHNIQUE: 3 views FINDINGS: Metacarpals are intact. There is mild spurring at the IP joints. There is some spurring in the intercarpal joints. I see no fracture. IMPRESSION: Mild osteoarthritis. No fracture seen. No evidence of inflammatory arthritis.
[2018-04-25 17:55] VITALS: BP 131/71; PULSE 66; TEMP 98.7
== END 2018-04-25 18:04 | disposition home or self-care (01) ==
LOC: EC 16:57
DX: S63.501A Unspecified sprain of right wrist, initial encounter (principal); L03.113 Cellulitis of right upper limb; M17.11 Unilateral primary osteoarthritis, right knee; F17.200 Nicotine dependence, unspecified, uncomplicated; Z87.01 Personal history of pneumonia (recurrent); Z96.653 Presence of artificial knee joint, bilateral; Z98.890 Other specified postprocedural states; W01.0XXA Fall on same level from slipping, tripping and stumbling without subsequent striking against object, initial encounter; Y92.69 Other specified industrial and construction area as the place of occurrence of the external cause; Y99.0 Civilian activity done for income or pay
CPT/HCPCS: 29125; 36415; 80053; 85025; 99284

== ENCOUNTER 2021-03-31 19:38 | Observation (INO) | payer OTHER ==
[2021-03-31] MEDS ORDERED: ASPIRIN 81 MG PO STA (20:11)
--- NOTE | 2021-03-31 20:14 | ED ---
General Adult HPI - General Chief complaint: Chest Pain Stated complaint: Chest pain Time Seen by Provider: 03/31/21 19:56 Source: patient, RN notes reviewed Mode of arrival: ambulatory Limitations: no limitations - History of Present Illness Initial comments: Patient is a pleasant 55-year-old male presenting to the emergency department with concerns for chest discomfort. Onset of symptoms was 2 hours ago. Discomfort was mild to moderate. Discomfort is now near resolved. Discomfort felt like pressure. No associated dyspnea or nausea. Patient was a little bit sweaty. Patient was lightheaded. No history of similar symptoms previously. No leg pain or leg swelling. - Related Data Home Medications Medication Instructions Recorded Confirmed amLODIPine/ATORVASTATIN 1 tab PO DAILY 03/31/21 03/31/21 [amLODIPine/ATORVASTATIN 5-10 MG] tadalafiL 20 mg PO Q72H PRN 03/31/21 03/31/21 Allergies Allergy/AdvReac Type Severity Reaction Status Date / Time No Known Allergies Allergy Verified 03/31/21 20:58 Review of Systems ROS Statement: Those systems with pertinent positive or pertinent negative responses have been documented in the HPI. ROS Other: All systems not noted in ROS Statement are negative. Constitutional: Denies: fever Eyes: Denies: eye pain ENT: Denies: ear pain Respiratory: Denies: cough Cardiovascular: Reports: as per HPI, chest pain Endocrine: Denies: fatigue Gastrointestinal: Denies: abdominal pain, nausea Genitourinary: Denies: dysuria Musculoskeletal: Denies: back pain Skin: Denies: rash Neurological: Denies: weakness Past Medical History Past Medical History: Hypertension, Osteoarthritis (OA), Pneumonia Additional Past Medical History / Comment(s): pneumonia in July History of Any Multi-Drug Resistant Organisms: None Reported Past Surgical History: Joint Replacement, Orthopedic Surgery Additional Past Surgical History / Comment(s): 02/16/16 total L knee arthroplasty. knee arthroscopies, COLONOSCOPY, right knee replaced July 2016 Past Anesthesia/Blood Transfusion Reactions: No Reported Reaction Additional Past Anesthesia/Blood Transfusion Reaction / Comment(s): NO HX BLOOD TRANSFUSION Past Psychological History: No Psychological Hx Reported Smoking Status: Current every day smoker Past Alcohol Use History: Occasional Past Drug Use History: Marijuana - Past Family History Mother Family Medical History: Cancer Additional Family Medical History / Comment(s): STOMACH Father Family Medical History: Cancer General Exam Limitations: no limitations General appearance: alert, in no apparent distress Head exam: Present: normocephalic Eye exam: Present: normal appearance Neck exam: Present: normal inspection Respiratory exam: Present: normal lung sounds bilaterally. Absent: chest wall tenderness Cardiovascular Exam: Present: regular rate, normal rhythm Expanded Peripheral pulses: 2+: Radial (R), Radial (L), Posterior Tibialis (R), Posterior Tibialis (L), Dorsalis Pedis (R), Dorsalis Pedis (L) GI/Abdominal exam: Present: soft. Absent: tenderness Extremities exam: Present: normal inspection. Absent: pedal edema, calf tenderness Neurological exam: Present: alert Psychiatric exam: Present: normal affect, normal mood Skin exam: Present: normal color Course Vital Signs 03/31/21 03/31/21 03/31/21 19:45 20:06 21:12 Temperature 97.9 F Pulse Rate 73 73 66 Respiratory 18 18 18 Rate Blood Pressure 103/58 109/65 107/59 O2 Sat by Pulse 96 97 94 L Oximetry EKG Findings - EKG Comments: EKG Findings:: Normal sinus rhythm 3-67. MA 170. QRS and 24. QT 420. QTc 443. Normal axis. Right bundle branch block. No acute ST change. Medical Decision Making - Medical Decision Making Patient reevaluated and resting comfortably in bed. Patient family updated on results and plan. Dr. Ulrich has been paged for admission of this patient. - Lab Data Result diagrams: 03/31/21 20:19 03/31/21 20:19 Lab Results 03/31/21 03/31/21 03/31/21 Range/Units 20:19 20:19 20:19 WBC 6.1 (3.8-10.6) k/uL RBC 5.12 (4.30-5.90) m/uL Hgb 12.2 L (13.0-17.5) gm/dL Hct 40.7 (39.0-53.0) % MCV 79.4 L (80.0-100.0) fL MCH 23.9 L (25.0-35.0) pg MCHC 30.1 L (31.0-37.0) g/dL RDW 16.3 H (11.5-15.5) % Plt Count 405 (150-450) k/uL MPV 6.9 Neutrophils % 63 % Lymphocytes % 29 % Monocytes % 6 % Eosinophils % 1 % Basophils % 1 % Neutrophils # 3.8 (1.3-7.7) k/uL Lymphocytes # 1.8 (1.0-4.8) k/uL Monocytes # 0.4 (0-1.0) k/uL Eosinophils # 0.1 (0-0.7) k/uL Basophils # 0.0 (0-0.2) k/uL Hypochromasia Moderate Anisocytosis Slight Microcytosis Slight PT 10.2 (9.0-12.0) sec INR 0.9 (<1.2) APTT 27.3 (22.0-30.0) sec D-Dimer 0.47 (<0.60) mg/L FEU Sodium 135 L (137-145) mmol/L Potassium 4.0 (3.5-5.1) mmol/L Chloride 101 (98-107) mmol/L Carbon Dioxide 22 (22-30) mmol/L Anion Gap 12 mmol/L BUN 20 (9-20) mg/dL Creatinine 0.66 (0.66-1.25) mg/dL Est GFR (CKD-EPI)AfAm >90 (>60 ml/min/1.73 sqM) Est GFR (CKD-EPI)NonAf >90 (>60 ml/min/1.73 sqM) Glucose 109 H (74-99) mg/dL Calcium 7.8 L (8.4-10.2) mg/dL Magnesium 2.0 (1.6-2.3) mg/dL Total Bilirubin 0.3 (0.2-1.3) mg/dL AST 68 H (17-59) U/L ALT 63 H (4-49) U/L Alkaline Phosphatase 148 H (38-126) U/L Troponin I (0.000-0.034) ng/mL Total Protein 6.5 (6.3-8.2) g/dL Albumin 3.5 (3.5-5.0) g/dL 03/31/21 Range/Units 20:19 WBC (3.8-10.6) k/uL RBC (4.30-5.90) m/uL Hgb (13.0-17.5) gm/dL Hct (39.0-53.0) % MCV (80.0-100.0) fL MCH (25.0-35.0) pg MCHC (31.0-37.0) g/dL RDW (11.5-15.5) % Plt Count (150-450) k/uL MPV Neutrophils % % Lymphocytes % % Monocytes % % Eosinophils % % Basophils % % Neutrophils # (1.3-7.7) k/uL Lymphocytes # (1.0-4.8) k/uL Monocytes # (0-1.0) k/uL Eosinophils # (0-0.7) k/uL Basophils # (0-0.2) k/uL Hypochromasia Anisocytosis Microcytosis PT (9.0-12.0) sec INR (<1.2) APTT (22.0-30.0) sec D-Dimer (<0.60) mg/L FEU Sodium (137-145) mmol/L Potassium (3.5-5.1) mmol/L Chloride (98-107) mmol/L Carbon Dioxide (22-30) mmol/L Anion Gap mmol/L BUN (9-20) mg/dL Creatinine (0.66-1.25) mg/dL Est GFR (CKD-EPI)AfAm (>60 ml/min/1.73 sqM) Est GFR (CKD-EPI)NonAf (>60 ml/min/1.73 sqM) Glucose (74-99) mg/dL Calcium (8.4-10.2) mg/dL Magnesium (1.6-2.3) mg/dL Total Bilirubin (0.2-1.3) mg/dL AST (17-59) U/L ALT (4-49) U/L Alkaline Phosphatase (38-126) U/L Troponin I 0.015 (0.000-0.034) ng/mL Total Protein (6.3-8.2) g/dL Albumin (3.5-5.0) g/dL - Radiology Data Radiology results: image reviewed (Chest x-ray shows no acute process) Disposition Clinical Impression: Chest pain Disposition: ADMITTED IP TO THIS [facility] Is patient prescribed a controlled substance at d/c from ED?: No Referrals: Amadou Ulrich DO [Primary Care Provider] - 1-2 days Decision Time: 21:15
[2021-03-31 20:30] LABS: Anisocytosis Slight; Basophils % (A) 1 %; Eosinophils # (A) 0.1 k/uL (0-0.7); Eosinophils % (A) 1 %; HCT 40.7 % (39.0-53.0); HGB 12.2 gm/dL (13.0-17.5); Hypochromasia Moderate; Lymphocytes # (A) 1.8 k/uL (1.0-4.8); Lymphocytes % (A) 29 %; MCH 23.9 pg (25.0-35.0); MCHC 30.1 g/dL (31.0-37.0); MCV 79.4 fL (80.0-100.0); Mean Platelet Volume 6.9; Microcytosis Slight; Monocytes # (A) 0.4 k/uL (0-1.0); Monocytes % (A) 6 %; Neutrophils # (A) 3.8 k/uL (1.3-7.7); Neutrophils % (A) 63 %; Platelet Count 405 k/uL (150-450); RBC 5.12 m/uL (4.30-5.90); RDW 16.3 % (11.5-15.5); WBC 6.1 k/uL (3.8-10.6)
--- NOTE | 2021-03-31 20:35 | XR ---
EXAMINATION TYPE: XR chest 2V DATE OF EXAM: 03/31/2021 COMPARISON: NONE HISTORY: Chest pain TECHNIQUE: 2 view FINDINGS: There is no heart failure nor confluent pneumonic infiltrate. Heart size is normal. Costoph renic angles are clear. There are no hilar masses. There are chest leads. Bony thorax is intact. IMPRESSION: No active creep only disease. Normal heart.
[2021-03-31 20:39] LABS: ALT 63 U/L (4-49); AST 68 U/L (17-59); African American GFR (CKD) >90 (>60 ml/min/1.73 sqM); Albumin 3.5 g/dL (3.5-5.0); Alkaline Phosphatase 148 U/L (38-126); Anion Gap 12 mmol/L; Blood Urea Nitrogen 20 mg/dL (9-20); Calcium 7.8 mg/dL (8.4-10.2); Carbon Dioxide 22 mmol/L (22-30); Chloride 101 mmol/L (98-107); Glucose 109 mg/dL (74-99); Non-African American GFR(CKD) >90 (>60 ml/min/1.73 sqM); Sodium 135 mmol/L (137-145); Total Bilirubin 0.3 mg/dL (0.2-1.3); Total Protein 6.5 g/dL (6.3-8.2)
[2021-03-31 20:53] LABS: INR 0.9 (<1.2); Partial Thromboplastin Time 27.3 sec (22.0-30.0); Prothrombin Time 10.2 sec (9.0-12.0)
[2021-03-31] MEDS ORDERED: NITROGLYCERIN SL TABS 0.4 MG TAB SUBLINGUAL PRN (21:16)
[2021-04-01] MEDS: NITROGLYCERIN OINT 1 INCH/GM PACKET TOPICAL SCH ×3 (07:34→11:35)
[2021-04-01] MEDS ORDERED: ASPIRIN 325 MG TAB PO SCH (09:00)
[2021-04-01 09:23] LABS: Chol/HDL Ratio 4.54 Ratio; LDL Cholesterol,Calculated 44.8 mg/dL (0.0-131.0)
--- NOTE | 2021-04-01 09:35 | P.CRDCN ---
History of Present Illness History of present illness: HISTORY OF PRESENTING ILLNESS Thousand 55-year-old male with history of hypertension, hyperlipidemia, tobacco abuse who presents secondary chest pain for a few hours while sitting. Patient states he had been feeling fairly well however yesterday while he is sitting watching TV developed a substernal chest pressure and tightness which lasted for approximately 2 hours. He denies any association with any movement. He denies any other associated nausea, diaphoresis or shortness breath. He has not had anything similar in the past. He came to the ER and blood tests were sodium 135, creatinine 0.6, d-dimer 0.47, AST 68, ALP 63, troponin 0.15, 0.02, 0.015, total cholesterol 111, LDL 44, HDL 18, coronavirus positive, hemoglobin 12.2, white blood cell 6.1. EKG shows right bundle branch block without significant ST or T wave abnormalities. He states the pain only lasted 2 hours and has had no recurrence and feels back to normal. He does smoke a pack a day since the age of 14 and was able to quit for a few years however still smoking. Denies any underlying COPD. He does have a chronic cough but he states no significant change recently. REVIEW OF SYSTEMS At the time of my exam: CONSTITUTIONAL: Denies fever or chills. CARDIOVASCULAR: +chest pain, chronic mild shortness of breath, no orthopnea, PND or palpitations. RESPIRATORY: +chronic cough. GASTROINTESTINAL: Denies abdominal pain, diarrhea, constipation, nausea or vomiting. MUSCULOSKELETAL: Denies myalgias. NEUROLOGIC: Denies numbness, tingling or weakness. ENDOCRINE: Denies fatigue, weight change, polydipsia or polyurina. GENITOURINARY: Denies burning, hematuria or urgency with micturation. HEMATOLOGIC: Denies history of anemia or bleeding. PHYSICAL EXAMINATION Vital signs reviewed. CONSTITUTIONAL: No apparent distress. HEENT: Head is normocephalic. Pupils are equal, round. Sclerae anicteric. Mucous membranes of the mouth are moist. No JVD. No carotid bruit. CHEST EXAMINATION: Lungs are clear to auscultation. No chest wall tenderness is noted on palpation or with deep breathing. HEART EXAMINATION: Regular rate and rhythm. S1, S2 heard. No murmurs, gallops or rub. ABDOMEN: Soft, nontender. Positive bowel sounds. EXTREMITIES: 2+ peripheral pulses, no lower extremity edema and no calf tenderness. NEUROLOGIC EXAMINATION: Patient is awake, alert and oriented x3. ASSESSMENT 1. Atypical chest pain, troponins normal 3, acute Yoel syndrome ruled out, d- dimer normal 2. COVID-19 infection, no significant pneumonia noted on chest x-ray 3. Tobacco abuse 4. Hypertension 5. Hyperlipidemia 6. RBBB PLAN His chest pain appears atypical and troponins normal. May be related to COVID- 19 infection however no significant pneumonia noted. D-dimer is normal and do not suspect PE. We will check 2-D echo and if unrevealing patient may be discharged home with outpatient follow-up May consider outpatient stress testing. Past Medical History Past Medical History: Hypertension, Osteoarthritis (OA), Pneumonia Additional Past Medical History / Comment(s): pneumonia in July History of Any Multi-Drug Resistant Organisms: None Reported Past Surgical History: Joint Replacement, Orthopedic Surgery Additional Past Surgical History / Comment(s): 02/16/16 total L knee arthroplasty. knee arthroscopies, COLONOSCOPY, right knee replaced July 2016 Past Anesthesia/Blood Transfusion Reactions: No Reported Reaction Additional Past Anesthesia/Blood Transfusion Reaction / Comment(s): NO HX BLOOD TRANSFUSION Past Psychological History: No Psychological Hx Reported Smoking Status: Current every day smoker Past Alcohol Use History: Occasional Additional Past Alcohol Use History / Comment(s): DRINKS 8-10 12 OZ BEERS PER WEEK. down to 1-1/2 PPD. , HAS BEEN SMOKING FOR 30 + YEARS. Past Drug Use History: Marijuana - Past Family History Mother Family Medical History: Cancer Additional Family Medical History / Comment(s): STOMACH Father Family Medical History: Cancer Medications and Allergies Home Medications Medication Instructions Recorded Confirmed Type amLODIPine/ATORVASTATIN 1 tab PO DAILY 03/31/21 03/31/21 History [amLODIPine/ATORVASTATIN 5-10 MG] tadalafiL 20 mg PO Q72H PRN 03/31/21 03/31/21 History Allergies Allergy/AdvReac Type Severity Reaction Status Date / Time No Known Allergies Allergy Verified 03/31/21 20:58 Physical Exam Vitals: Vital Signs Temp Pulse Resp BP Pulse Ox 04/01/21 07:35 98.2 F 55 L 18 141/66 95 04/01/21 06:21 62 18 144/73 95 04/01/21 04:00 59 L 18 144/86 92 L 03/31/21 23:00 58 L 18 99/50 91 L 03/31/21 21:12 66 18 107/59 94 L 03/31/21 20:06 73 18 109/65 97 03/31/21 19:45 97.9 F 73 18 103/58 96 Intake and Output 03/31/21 04/01/21 04/01/21 22:59 06:59 14:59 Other: Weight 90.718 kg 90.718 kg Results 03/31/21 20:19 03/31/21 20:19 Cardiac Enzymes 03/31/21 03/31/21 03/31/21 Range/Units 20:19 20:19 21:45 AST 68 H (17-59) U/L Troponin I 0.015 0.020 (0.000-0.034) ng/mL 03/31/21 Range/Units 23:53 AST (17-59) U/L Troponin I 0.015 (0.000-0.034) ng/mL Coagulation 03/31/21 Range/Units 20:19 PT 10.2 (9.0-12.0) sec APTT 27.3 (22.0-30.0) sec Lipids 04/01/21 Range/Units 05:25 Triglycerides 111.00 (0.00-149.00) mg/dL Cholesterol 86.00 (0.00-200.00) mg/dL HDL Cholesterol 18.90 L (40.00-60.00) mg/dL Cholesterol/HDL Ratio 4.54 Ratio CBC 03/31/21 Range/Units 20:19 WBC 6.1 (3.8-10.6) k/uL RBC 5.12 (4.30-5.90) m/uL Hgb 12.2 L (13.0-17.5) gm/dL Hct 40.7 (39.0-53.0) % Plt Count 405 (150-450) k/uL Comprehensive Metabolic Panel 03/31/21 Range/Units 20:19 Sodium 135 L (137-145) mmol/L Potassium 4.0 (3.5-5.1) mmol/L Chloride 101 (98-107) mmol/L Carbon Dioxide 22 (22-30) mmol/L BUN 20 (9-20) mg/dL Creatinine 0.66 (0.66-1.25) mg/dL Glucose 109 H (74-99) mg/dL Calcium 7.8 L (8.4-10.2) mg/dL AST 68 H (17-59) U/L ALT 63 H (4-49) U/L Alkaline Phosphatase 148 H (38-126) U/L Total Protein 6.5 (6.3-8.2) g/dL Albumin 3.5 (3.5-5.0) g/dL Current Medications Generic Name Dose Route Start Last Admin Trade Name Freq PRN Reason Stop Dose Admin Aspirin 325 mg 04/01/21 09:00 04/01/21 09:15 Aspirin 325 Mg Tab PO 325 mg DAILY ADRIAN Administration Nitroglycerin 0.4 mg 03/31/21 21:16 Nitroglycerin Sl Tabs 0.4 Mg Tab SUBLINGUAL Q5M PRN Chest Pain Nitroglycerin 1 inch 04/01/21 00:00 04/01/21 07:35 Nitroglycerin Oint 1 Inch/Gm Packet TOPICAL 1 inch Q6HR ADRIAN Administration Sodium Chloride 10 ml 04/01/21 09:00 04/01/21 09:15 Sodium Chloride 0.9% Flush 10 Ml Syringe IV 10 ml BID ADRIAN Administration Intake and Output 03/31/21 04/01/21 04/01/21 22:59 06:59 14:59 Other: Weight 90.718 kg 90.718 kg Patient Weight 04/02/21 06:59 Weight 90.718 kg 03/31/21 20:19 03/31/21 20:19
[2021-04-01] MEDS ORDERED: DEXAMETHASONE SOD PHOSPHATE 10 MG/ML 1 ML VIAL IVP SCH (10:00)
[2021-04-01] MEDS ORDERED: CHOLECALCIFEROL 25 MCG (1000 IU) TABLET PO SCH (10:00)
[2021-04-01] MEDS ORDERED: ASCORBIC ACID 500 MG TAB PO SCH (10:00)
[2021-04-01] MEDS ORDERED: ZINC SULFATE 220 MG CAP PO SCH (10:00)
--- NOTE | 2021-04-01 11:27 | ECHOF ---
Referral Reason:re: LV function MEASUREMENTS -------- HEIGHT: 170.2 cm WEIGHT: 90.7 kg BP: 141/66 RVIDd: 4.2 cm (< 3.3) IVSd: 1.5 cm (0.6 - 1.1) LVIDd: 4.4 cm (3.9 - 5.3) LVPWd: 1.3 cm (0.6 - 1.1) IVSs: 1.7 cm LVIDs: 3.1 cm LVPWs: 1.5 cm LAESV Index (A-L): 29.87 ml/m MV E Rene: 0.98 m/s MV DecT: 233 ms MV A Rene: 1.02 m/s MV E/A Ratio: 0.96 AV maxP.14 mmHg AV meanP.92 mmHg AR PHT: 468 ms FINDINGS -------- Sinus rhythm. This was a technically adequate study. The left ventricular size is normal. There is moderate concentric left ventricular hypertrophy. O verall left ventricular systolic function is normal with, an EF between 55 - 60 %. The right ventricle is moderately enlarged. LA is midly dilated 29-33ml/m2. The right atrium was not well visualized. Interatrial and interventricular septum intact. Trace amount of aortic regurgitation. There is mild aortic stenosis present. The maximum velocit y across the aortic valve is 3.13m/s. Peak/mean gradient across the Aortic Valve is 39.14mmHg / 19. 92mmHg. Mild mitral regurgitation is present. Unable to estimate RVSP due to inadequate TR jet spectral doppler profile. The pulmonic valve was not well visualized. There is no pericardial effusion. CONCLUSIONS -------- 1. The left ventricular size is normal. 2. There is moderate concentric left ventricular hypertrophy. 3. Overall left ventricular systolic function is normal with, an EF between 55 - 60 %. 4. The right ventricle is moderately enlarged. 5. LA is midly dilated 29-33ml/m2. 6. Trace amount of aortic regurgitation. 7. There is mild aortic stenosis present. 8. The maximum velocity across the aortic valve is 3.13m/s. 9. Peak/mean gradient across the Aortic Valve is 39.14mmHg / 19.92mmHg. 10. Mild mitral regurgitation is present. MEDICAL/SURGERY REGISTERED NURSE: Janet Harris RDCS
[2021-04-01 14:05] VITALS: BP 140/57; PULSE 80; RESP 16; TEMP 98
--- NOTE | 2021-04-03 11:10 | P.HPIM ---
History of Present Illness H&P Date: 04/01/21 Chief Complaint: Chest pain History and Physical and Discharge Summary This is a 55-year-old gentleman presented to the ER with midsternal chest dis comfort, accompanied by a nonproductive cough and multiple other medical issues. Reports isolated episode of chest discomfort, occurred while sitting and watching TV, lasting over an hour. Denies any extra strenuous exercise or activity prior to the event. Patient denies shortness of breath, denies nausea vomiting or diarrhea. Denies abdominal pain. Denies loss of taste or smell. Patient is unvaccinated with coronavirus (PCR )detected.Afebrile,normal WBC, maintaining O2 sats in the 90s on room air.VSS. Chest x-ray reported no heart failure nor confluent pneumonic infiltrate, costophrenic angles clear, no hilar masses. EKG reported normal sinus rhythm with right bundle branch block. T roponins negative 3 Hemoglobin 12.2, platelets 405, coagulation panel unremarkable, sodium 135, potassium 4 bicarb 22, renal function stable, magnesium 2, AST 68, ALT 63, alk phos 148. Good diet and to get caught up on everything and should be looking pretty good. Lipid panel pending. Denies jeanna st pain, palpitations or shortness of breath. Denies lightheadedness, dizziness or focal deficits. Review of Systems ROS Statement: Those systems with pertinent positive or pertinent negative responses have been documented in the HPI. ROS Other: All systems not noted in ROS Statement are negative. Past Medical History Past Medical History: Hypertension, Osteoarthritis (OA), Pneumonia Additional Past Medical History / Comment(s): pneumonia in July History of Any Multi-Drug Resistant Organisms: None Reported Past Surgical History: Joint Replacement, Orthopedic Surgery Additional Past Surgical History / Comment(s): 02/16/16 total L knee arthroplasty. knee arthroscopies, COLONOSCOPY, right knee replaced July 2016 Past Anesthesia/Blood Transfusion Reactions: No Reported Reaction Additional Past Anesthesia/Blood Transfusion Reaction / Comment(s): NO HX BLOOD TRANSFUSION Past Psychological History: No Psychological Hx Reported Smoking Status: Current every day smoker Past Alcohol Use History: Occasional Additional Past Alcohol Use History / Comment(s): DRINKS 8-10 12 OZ BEERS PER WEEK. down to 1-1/2 PPD. , HAS BEEN SMOKING FOR 30 + YEARS. Past Drug Use History: Marijuana - Past Family History Mother Family Medical History: Cancer Additional Family Medical History / Comment(s): STOMACH Father Family Medical History: Cancer Medications and Allergies Home Medications Medication Instructions Recorded Confirmed Type amLODIPine/ATORVASTATIN 1 tab PO DAILY 03/31/21 03/31/21 History [amLODIPine/ATORVASTATIN 5-10 MG] tadalafiL 20 mg PO Q72H PRN 03/31/21 03/31/21 History Ascorbic Acid [Vitamin C] 500 mg PO BID #0 tab 04/01/21 Rx Aspirin EC [Ecotrin Low Dose] 81 mg PO DAILY 60 Days #60 tab 04/01/21 Rx Cholecalciferol [Vitamin D3 (25 100 mcg PO DAILY tablet 04/01/21 Rx Mcg = 1000 Iu)] Dexamethasone [Decadron] 6 mg PO DAILY #9 tablet 04/01/21 Rx Zinc Sulfate [Orazinc] 220 mg PO DAILY #30 cap 04/01/21 Rx Allergies Allergy/AdvReac Type Severity Reaction Status Date / Time No Known Allergies Allergy Verified 03/31/21 20:58 Physical Exam GENERAL: Pt awake and alert, well-nourished, and in no acute distress. HEAD: Atraumatic, normocephalic. EYES: Pupils equal, round, and reactive to light, extraocular movements intact, sclera anicteric, conjunctiva are normal. ENT: Moist mucous membranes. NECK: Supple without lymphadenopathy or JVD. LUNGS: Breath sounds clear to auscultation bilaterally. No wheezes, rales, or rhonchi. HEART: Heart S1, S2, no S3 or S4. Regular rate and rhythm. No murmurs, rubs or gallops. ABDOMEN: Soft, nontender, nondistended, normoactive bowel sounds. No guarding, no rebound. No masses or organomegaly appreciated. EXTREMITIES: No edema, no clubbing or cyanosis NEUROLOGICAL: Pt oriented x 3. Cranial nerves II through XII grossly intact. Strength and sensation grossly intact. PSYCH: Normal mood, normal affect. SKIN: Warm, dry, intact. Normal turgor. No rash. Results CBC & Chem 7: 03/31/21 20:19 03/31/21 20:19 Thrombosis Risk Factor Assmnt - Choose All That Apply Each Factor Represents 1 point: Age 41-60 years Thrombosis Risk Factor Assessment Total Risk Factor Score: 1 Thrombosis Risk Factor Assessment Level: Low Risk Assessment and Plan Assessment: Acute chest pain, possibly related to Covid infection, troponins normal, acute coronary syndrome ruled out as per cardiology. Acute Covid Infection Ongoing Nicotine dependence Hypertension Hyperlipidemia Right bundle branch block Alcohol use Osteoarthritis Plan: Continue on current medication regime ,monitoring and symptomatic treatment. Covid cocktail initiated. Evaluated by cardiology, echo ordered and discussing potential outpatient stress testing. Patient will be discharged home today in a stable condition with guarded prognosis pending echo results, final DC recommendations and clearance per cardiology. Follow up with cardiology as advised and with PCP in one week. Patient has been advised to complete quarantine. Discharge Medication List amLODIPine/ATORVASTATIN [amLODIPine/ATORVASTATIN 5-10 MG] 1 tab PO DAILY 03/31/21 [History] tadalafiL 20 mg PO Q72H PRN 03/31/21 [History] Ascorbic Acid [Vitamin C] 500 mg PO BID #0 tab 04/01/21 [Rx] Aspirin EC [Ecotrin Low Dose] 81 mg PO DAILY 60 Days #60 tab 04/01/21 [Rx] Cholecalciferol [Vitamin D3 (25 Mcg = 1000 Iu)] 100 mcg PO DAILY tablet 04/01/21 [Rx] Dexamethasone [Decadron] 6 mg PO DAILY #9 tablet 04/01/21 [Rx] Zinc Sulfate [Orazinc] 220 mg PO DAILY #30 cap 04/01/21 [Rx] The impression and plan of care has been dictated as directed. : I performed a history and examination of this patient, discussed the same with the dictator. I agree with the dictator's note ,documented as a scribe. Any additional findings or plans will be noted.
== END 2021-04-01 14:27 | disposition home or self-care (01) ==
LOC: EC 19:38 → 6NMEDSUR 21:16
PROVIDERS: ADMIT Family Medicine; ATTEND Family Medicine
DX: R07.89 Other chest pain (principal); U07.1 COVID-19; I11.9 Hypertensive heart disease without heart failure; R05.3 Chronic cough; R42 Dizziness and giddiness; I45.10 Unspecified right bundle-branch block; M19.90 Unspecified osteoarthritis, unspecified site; F17.210 Nicotine dependence, cigarettes, uncomplicated; E78.5 Hyperlipidemia, unspecified; I35.0 Nonrheumatic aortic (valve) stenosis; I08.0 Rheumatic disorders of both mitral and aortic valves; Z87.01 Personal history of pneumonia (recurrent); Z71.6 Tobacco abuse counseling; Z96.652 Presence of left artificial knee joint; Z80.0 Family history of malignant neoplasm of digestive organs
CPT/HCPCS: 99285; 96374; 36415; 93005; 93306; 85379; 80061; 80053; 83735; 84484; 85025; 85610; 85730; 87635; 71046; G0378 ×2; J1100

== ENCOUNTER → 2021-09-23 | Outpatient (CLI) | payer OTHER ==
--- NOTE | 2021-09-23 18:14 | US ---
EXAMINATION TYPE: US venous doppler duplex LE LT DATE OF EXAM: 09/23/2021 3:44 PM COMPARISON: NONE CLINICAL HISTORY: I82.402 LEFT LOWER EXT DVT. Left leg pain and swelling SIDE PERFORMED: Left TECHNIQUE: The lower extremity deep venous system is examined utilizing real time linear array sonog nyasia with graded compression, doppler sonography and color-flow sonography. VESSELS IMAGED: Common Femoral Vein Deep Femoral Vein Greater Saphenous Vein * Femoral Vein Popliteal Vein Small Saphenous Vein * Proximal Calf Veins (* superficial vessels) Left Leg: Appears negative for DVT IMPRESSION: 1. Left lower extremity ultrasound negative for deep venous thrombosis.
== END | disposition home or self-care (01) ==
LOC: RADUSWWP 15:20
PROVIDERS: ATTEND Family Medicine
DX: M79.605 Pain in left leg (principal); M79.89 Other specified soft tissue disorders

== ENCOUNTER 2021-09-24 08:09 | Day surgery (SDC) | payer OTHER ==
[2021-09-22 14:22] VITALS: BMI 31.3
[~2021-09-24 08:09] MED LIST changes: -DEXAMETHASONE SOD PHOSPHATE 10 MG/ML 1 ML VIAL IV ONE; +LIDOCAINE 1% (10MG/ML) FOR IV START INTRADERMA PRN; -LIDOCAINE 1% 20 ML VIAL (10MG/ML) FOR IV START INTRADERMA PRN; -MIDAZOLAM 2 MG/2 ML VIAL IV PRN; -ONDANSETRON 4 MG/2 ML VIAL IVP ONE; -SCOPOLAMINE 1.5MG/72HR PATCH TRANSDERM ONE; -ceFAZolin 2 GM in SODIUM CHLORIDE 0.9% 100 ML IVPB ONE
[2021-09-24 08:50] VITALS: TEMP 98
[2021-09-24] MEDS ORDERED: PROPOFOL 10 MG/ML 20 ML VIAL IV ONE (09:38)
--- NOTE | 2021-09-24 09:43 | P.GSHP ---
History of Present Illness H&P Date: 09/24/21 Chief Complaint: GI bleed This is a 56-year-old male who has had complaints of rectal bleeding. Patient presents today for colonoscopy Past Medical History Past Medical History: Chest Pain / Angina, Hyperlipidemia, Osteoarthritis (OA) Additional Past Medical History / Comment(s): left lower leg edema, History of Any Multi-Drug Resistant Organisms: None Reported Past Surgical History: Joint Replacement, Orthopedic Surgery Additional Past Surgical History / Comment(s): jeff knee arthroplasty. jeff knee arthroscopies, COLONOSCOPY, Past Anesthesia/Blood Transfusion Reactions: No Reported Reaction Additional Past Anesthesia/Blood Transfusion Reaction / Comment(s): . Smoking Status: Current every day smoker - Past Family History Mother Family Medical History: Cancer Additional Family Medical History / Comment(s): STOMACH Father Family Medical History: Cancer Medications and Allergies Home Medications Medication Instructions Recorded Confirmed Type amLODIPine/ATORVASTATIN 1 tab PO DAILY 03/31/21 09/24/21 History [amLODIPine/ATORVASTATIN 5-10 MG] Aspirin EC [Ecotrin Low Dose] 81 mg PO DAILY 60 Days #60 tab 04/01/21 09/24/21 Rx Zinc Sulfate [Orazinc] 220 mg PO DAILY #30 cap 04/01/21 09/24/21 Rx Allergies Allergy/AdvReac Type Severity Reaction Status Date / Time No Known Allergies Allergy Verified 09/24/21 09:00 Surgical - Exam Vital Signs Temp Pulse Resp BP Pulse Ox 98 F 62 18 159/70 94 L 09/24/21 08:49 09/24/21 08:49 09/24/21 08:49 09/24/21 08:49 09/24/21 08:49 - General well developed, well nourished, no distress - Eyes PERRL - ENT normal pinna - Neck no masses - Respiratory normal expansion - Cardiovascular Rhythm: regular - Abdomen Abdomen: soft, non tender Assessment and Plan Assessment: History of GI bleed. We'll perform colonoscopy
--- NOTE | 2021-09-24 10:03 | P.OP ---
Date of Procedure: 09/24/21 Preoperative Diagnosis: GI bleed Postoperative Diagnosis: Diverticulosis Multiple colon polyps Procedure(s) Performed: Colonoscopy Anesthesia: MAC Surgeon: Joel Rodriguez Pathology: other (Colon polyps at 90 cm) Condition: stable Disposition: PACU Description of Procedure: Patient's placed on the endoscopy table in the lateral position. He received IV sedation. Digital rectal exam was performed. There were internal and external hemorrhoids. Flexible colonoscope was then placed patient anus and passed throughout the colon. Ileocecal valve was visualized. Cecum, ascending old was normal except for a few scattered diverticula. In the transverse colon at the 90 cm gama there were several colon polyps. These removed with a combination of snare and cold forcep. Scope was brought back the descending colon there was moderate diverticular changes.; Was extensive diverticular changes. Scope was then brought back the rectum and this appeared normal. Scope withdrawn for patient. This presumed patient may have had bleeding from hemorrhoids or diverticular disease.
[2021-09-24 10:11] VITALS: RESP 16
[2021-09-24 10:22] VITALS: BP 147/77; PULSE 55
== END 2021-09-24 10:50 | disposition home or self-care (01) ==
LOC: ORWHC2ENDO 08:09
PROVIDERS: ATTEND Surgery
DX: D12.3 Benign neoplasm of transverse colon (principal); K57.30 Diverticulosis of large intestine without perforation or abscess without bleeding; K64.8 Other hemorrhoids; K64.4 Residual hemorrhoidal skin tags; E78.5 Hyperlipidemia, unspecified; M19.90 Unspecified osteoarthritis, unspecified site; F17.200 Nicotine dependence, unspecified, uncomplicated; Z80.0 Family history of malignant neoplasm of digestive organs; Z79.899 Other long term (current) drug therapy; Z79.82 Long term (current) use of aspirin; I10 Essential (primary) hypertension
CPT/HCPCS: 88305; 45380; 45385; J2704

== ENCOUNTER 2021-09-30 10:44 | Inpatient (IN) | payer OTHER ==
--- NOTE | 2021-09-30 12:10 | XR ---
EXAMINATION TYPE: XR chest 2V DATE OF EXAM: 09/30/2021 COMPARISON: Chest x-ray March 31, 2021 HISTORY: Difficulty in breathing. TECHNIQUE: Frontal and lateral views of the chest are obtained. FINDINGS: There are chronic parenchymal changes bilaterally without suspicious new focal air space o pacity, pleural effusion, or pneumothorax seen. The cardiac silhouette size is stable and within nor mal limits. The osseous structures are intact. Overlying EKG leads are redemonstrated. IMPRESSION: Chronic changes without acute pulmonary process. No significant change from prior.
[2021-09-30 12:21] LABS: INR 0.9 (<1.2); Partial Thromboplastin Time 25.6 sec (22.0-30.0); Prothrombin Time 10.3 sec (9.0-12.0)
[2021-09-30 12:22] LABS: Anisocytosis Moderate; HCT 25.9 % (39.0-53.0); HGB 7.9 gm/dL (13.0-17.5); Hypochromasia Marked; MCH 29.8 pg (25.0-35.0); MCHC 30.6 g/dL (31.0-37.0); MCV 97.4 fL (80.0-100.0); Macrocytosis Moderate; Mean Platelet Volume 7.1; Platelet Count 610 k/uL (150-450); Poikilocytosis Slight; RBC 2.66 m/uL (4.30-5.90); RDW 20.5 % (11.5-15.5)
[2021-09-30 12:24] LABS: ALT 23 U/L (4-49); AST 28 U/L (17-59); African American GFR (CKD) >90 (>60 ml/min/1.73 sqM); Albumin 1.8 g/dL (3.5-5.0); Alkaline Phosphatase 205 U/L (38-126); Anion Gap 2 mmol/L; Blood Urea Nitrogen 23 mg/dL (9-20); Calcium 6.6 mg/dL (8.4-10.2); Carbon Dioxide 27 mmol/L (22-30); Chloride 103 mmol/L (98-107); Glucose 111 mg/dL (74-99); Magnesium 1.9 mg/dL (1.6-2.3); Non-African American GFR(CKD) 79 (>60 ml/min/1.73 sqM); Potassium 3.7 mmol/L (3.5-5.1); Sodium 132 mmol/L (137-145); Total Bilirubin 0.2 mg/dL (0.2-1.3); Total Protein 4.2 g/dL (6.3-8.2)
[2021-09-30 12:59] LABS: Band Neutrophils % 1 %; Neutrophils % (M) 7 %
[2021-09-30 13:00] LABS: Monocytes # (M) 0.34 k/uL (0-1.0); Nucleated Red Blood Cells 8 /100 WBC (0-0); Total Cells Counted 100
[2021-09-30 13:01] LABS: Large Platelets Present; Polychromasia Present
[2021-09-30 13:02] LABS: Target Cells Present
[2021-09-30] MEDS ORDERED: NALOXONE 0.4 MG/ML 1 ML VIAL IV PRN (13:21)
--- NOTE | 2021-09-30 13:21 | ED ---
General Adult HPI - General Chief complaint: Extremity Problem,Nontraumatic Stated complaint: Edema in arms/legs/Revisit Time Seen by Provider: 09/30/21 11:09 Source: patient, RN notes reviewed Mode of arrival: ambulatory Limitations: no limitations - History of Present Illness Initial comments: This is a 56-year-old male presents emergency Department with chief complaint of leg swelling. Patient states she's been having worsening symptoms over the last couple weeks. Patient states she's had several lab draws in which she's been told is anemic. Patient states that she is on Lasix and which is causing vacuum tester cans but states never had an echo that he can remember. Patient states she's having increasing discomfort of his leg swelling, increasing weakness and felt short of breath today. No chest pain. Patient denies fevers or chills. - Related Data Home Medications Medication Instructions Recorded Confirmed amLODIPine/ATORVASTATIN 1 tab PO DAILY 03/31/21 09/30/21 [amLODIPine/ATORVASTATIN 5-10 MG] Aspirin EC [Ecotrin Low Dose] 81 mg PO HS 09/30/21 09/30/21 Furosemide [Lasix] 20 mg PO HS 09/30/21 09/30/21 Zinc 50 mg PO HS 09/30/21 09/30/21 Allergies Allergy/AdvReac Type Severity Reaction Status Date / Time No Known Allergies Allergy Verified 09/30/21 13:15 Review of Systems ROS Statement: Those systems with pertinent positive or pertinent negative responses have been documented in the HPI. ROS Other: All systems not noted in ROS Statement are negative. Past Medical History Past Medical History: Chest Pain / Angina, Hyperlipidemia, Osteoarthritis (OA) Additional Past Medical History / Comment(s): left lower leg edema, History of Any Multi-Drug Resistant Organisms: None Reported Past Surgical History: Joint Replacement, Orthopedic Surgery Additional Past Surgical History / Comment(s): jeff knee arthroplasty. jeff knee arthroscopies, COLONOSCOPY, Past Anesthesia/Blood Transfusion Reactions: No Reported Reaction Additional Past Anesthesia/Blood Transfusion Reaction / Comment(s): . Past Psychological History: No Psychological Hx Reported Smoking Status: Current every day smoker - Past Family History Mother Family Medical History: Cancer Additional Family Medical History / Comment(s): STOMACH Father Family Medical History: Cancer General Exam Limitations: no limitations General appearance: alert, in no apparent distress Head exam: Present: atraumatic, normocephalic, normal inspection Eye exam: Present: normal appearance, PERRL, EOMI. Absent: scleral icterus, conjunctival injection, periorbital swelling ENT exam: Present: normal exam, normal oropharynx, mucous membranes moist Neck exam: Present: normal inspection, full ROM. Absent: tenderness, meningismus, lymphadenopathy Respiratory exam: Present: normal lung sounds bilaterally. Absent: respiratory distress, wheezes, rales, rhonchi, stridor Cardiovascular Exam: Present: regular rate, normal rhythm, normal heart sounds. Absent: systolic murmur, diastolic murmur, rubs, gallop, clicks GI/Abdominal exam: Present: soft, normal bowel sounds. Absent: distended, tenderness, guarding, rebound, rigid Extremities exam: Present: pedal edema Neurological exam: Present: alert, oriented X3 Course Vital Signs 09/30/21 09/30/21 09/30/21 11:04 11:34 12:30 Temperature 97.9 F Pulse Rate 58 L 55 L 54 L Respiratory 16 14 16 Rate Blood Pressure 127/63 114/54 129/94 O2 Sat by Pulse 98 98 97 Oximetry Medical Decision Making - Medical Decision Making Patient's labs reveal evidence of anemia, leukopenia with albumin 1.8. Patient's after 16 secondary to his albumin status. Patient has been she'll count of 0.1. Patient symptoms are progressing rapidly. I did contact Dr. Barillas covering for Dr. Ulrich recommend patient to be admitted for hematology evaluation. - Lab Data Result diagrams: 09/30/21 11:53 09/30/21 11:53 Lab Results 09/30/21 09/30/21 09/30/21 Range/Units 11:53 11:53 11:53 WBC 2.0 L (3.8-10.6) k/uL RBC 2.66 L (4.30-5.90) m/uL Hgb 7.9 L (13.0-17.5) gm/dL Hct 25.9 L (39.0-53.0) % MCV 97.4 (80.0-100.0) fL MCH 29.8 (25.0-35.0) pg MCHC 30.6 L (31.0-37.0) g/dL RDW 20.5 H (11.5-15.5) % Plt Count 610 H (150-450) k/uL MPV 7.1 Neutrophils % (Manual) 7 % Band Neuts % (Manual) 1 % Lymphocytes % (Manual) 70 % Monocytes % (Manual) 17 % Eosinophils % (Manual) 5 % Neutrophils # INCLUSION INTERNSHIP Neutrophils # (Manual) 0.10 L* (1.3-7.7) k/uL Lymphocytes # (Manual) 1.40 (1.0-4.8) k/uL Monocytes # (Manual) 0.34 (0-1.0) k/uL Eosinophils # (Manual) 0.10 (0-0.7) k/uL Nucleated RBCs 8 H (0-0) /100 WBC Manual Slide Review Performed Large Platelets Present Polychromasia Present Hypochromasia Marked Poikilocytosis Slight Anisocytosis Moderate Macrocytosis Moderate Target Cells Present PT 10.3 (9.0-12.0) sec INR 0.9 (<1.2) APTT 25.6 (22.0-30.0) sec Sodium 132 L (137-145) mmol/L Potassium 3.7 (3.5-5.1) mmol/L Chloride 103 (98-107) mmol/L Carbon Dioxide 27 (22-30) mmol/L Anion Gap 2 mmol/L BUN 23 H (9-20) mg/dL Creatinine 1.04 (0.66-1.25) mg/dL Est GFR (CKD-EPI)AfAm >90 (>60 ml/min/1.73 sqM) Est GFR (CKD-EPI)NonAf 79 (>60 ml/min/1.73 sqM) Glucose 111 H (74-99) mg/dL Calcium 6.6 L (8.4-10.2) mg/dL Magnesium 1.9 (1.6-2.3) mg/dL Total Bilirubin 0.2 (0.2-1.3) mg/dL AST 28 (17-59) U/L ALT 23 (4-49) U/L Alkaline Phosphatase 205 H (38-126) U/L Troponin I (0.000-0.034) ng/mL NT-Pro-B Natriuret Pep pg/mL Total Protein 4.2 L (6.3-8.2) g/dL Albumin 1.8 L (3.5-5.0) g/dL 09/30/21 09/30/21 Range/Units 11:53 11:53 WBC (3.8-10.6) k/uL RBC (4.30-5.90) m/uL Hgb (13.0-17.5) gm/dL Hct (39.0-53.0) % MCV (80.0-100.0) fL MCH (25.0-35.0) pg MCHC (31.0-37.0) g/dL RDW (11.5-15.5) % Plt Count (150-450) k/uL MPV Neutrophils % (Manual) % Band Neuts % (Manual) % Lymphocytes % (Manual) % Monocytes % (Manual) % Eosinophils % (Manual) % Neutrophils # Neutrophils # (Manual) (1.3-7.7) k/uL Lymphocytes # (Manual) (1.0-4.8) k/uL Monocytes # (Manual) (0-1.0) k/uL Eosinophils # (Manual) (0-0.7) k/uL Nucleated RBCs (0-0) /100 WBC Manual Slide Review Large Platelets Polychromasia Hypochromasia Poikilocytosis Anisocytosis Macrocytosis Target Cells PT (9.0-12.0) sec INR (<1.2) APTT (22.0-30.0) sec Sodium (137-145) mmol/L Potassium (3.5-5.1) mmol/L Chloride (98-107) mmol/L Carbon Dioxide (22-30) mmol/L Anion Gap mmol/L BUN (9-20) mg/dL Creatinine (0.66-1.25) mg/dL Est GFR (CKD-EPI)AfAm (>60 ml/min/1.73 sqM) Est GFR (CKD-EPI)NonAf (>60 ml/min/1.73 sqM) Glucose (74-99) mg/dL Calcium (8.4-10.2) mg/dL Magnesium (1.6-2.3) mg/dL Total Bilirubin (0.2-1.3) mg/dL AST (17-59) U/L ALT (4-49) U/L Alkaline Phosphatase (38-126) U/L Troponin I <0.012 (0.000-0.034) ng/mL NT-Pro-B Natriuret Pep 442 pg/mL Total Protein (6.3-8.2) g/dL Albumin (3.5-5.0) g/dL Disposition Clinical Impression: Hypoalbuminemia, Peripheral edema, Leukopenia, Neutropenic, Anemia Disposition: ADMITTED IP TO THIS HOSP Condition: Fair Referrals: Amadou Ulrich DO [Primary Care Provider] - 1-2 days Time of Disposition: 13:21
[2021-10-01] MEDS: ATORVASTATIN 10 MG TAB PO SCH (08:00)
[2021-10-01] MEDS: amLODIPine 5 MG TAB PO SCH (08:00)
[2021-10-01] MEDS ORDERED: AMLODIPINE PO SCH (09:00)
[2021-10-01] MEDS ORDERED: [UNRECOGNIZED DRUG - OTHER] PO SCH (09:00)
[2021-10-01] MEDS ORDERED: ATORVASTATIN PO SCH (09:00)
[2021-10-01] MEDS ORDERED: TABLE PO SCH (09:00)
[2021-10-01 09:38] LABS: ALT 24 U/L (4-49); AST 29 U/L (17-59); African American GFR (CKD) >90 (>60 ml/min/1.73 sqM); Albumin 1.8 g/dL (3.5-5.0); Albumin/Globulin Ratio 0.8; Alkaline Phosphatase 185 U/L (38-126); Anion Gap 3 mmol/L; Blood Urea Nitrogen 20 mg/dL (9-20); Calcium 6.7 mg/dL (8.4-10.2); Carbon Dioxide 27 mmol/L (22-30); Chloride 103 mmol/L (98-107); Globulin 2.2 g/dL; Glucose 104 mg/dL (74-99); LDH 649 U/L (313-618); Magnesium 2.1 mg/dL (1.6-2.3); Non-African American GFR(CKD) 88 (>60 ml/min/1.73 sqM); Phosphorus 3.9 mg/dL (2.5-4.5); Potassium 3.8 mmol/L (3.5-5.1); Sodium 133 mmol/L (137-145); Total Bilirubin <0.1 mg/dL (0.2-1.3); Uric Acid 5.4 mg/dL (3.5-8.5)
[2021-10-01 09:53] LABS: Anisocytosis Moderate; Basophils % (A) 1 %; Eosinophils # (A) 0.1 k/uL (0-0.7); Eosinophils % (A) 7 %; HCT 24.9 % (39.0-53.0); HGB 7.5 gm/dL (13.0-17.5); Hypochromasia Marked; Lymphocytes % (A) 62 %; MCH 29.4 pg (25.0-35.0); MCHC 30.1 g/dL (31.0-37.0); MCV 97.7 fL (80.0-100.0); Macrocytosis Moderate; Mean Platelet Volume 7.6; Monocytes # (A) 0.2 k/uL (0-1.0); Monocytes % (A) 12 %; Neutrophils % (A) 10 %; Poikilocytosis Slight; RBC 2.55 m/uL (4.30-5.90); RDW 20.7 % (11.5-15.5); Reticulocyte % 3.4 % (0.5-2.0); WBC 1.6 k/uL (3.8-10.6)
[2021-10-01 09:55] LABS: Neutrophils # (A) 0.2 k/uL (1.3-7.7)
[2021-10-01 10:13] LABS: Eosinophils # (M) 0.21 k/uL (0-0.7); Lymphocytes # (M) 0.88 k/uL (1.0-4.8); Monocytes # (M) 0.34 k/uL (0-1.0); Neutrophils % (M) 11 %; Nucleated Red Blood Cells 0 /100 WBC (0-0); Rouleaux Present; Stomatocytes Present; Total Cells Counted 100
[2021-10-01 10:14] LABS: Platelet Count 538 k/uL (150-450)
[2021-10-01 10:25] LABS: Basophils # (A) 0.03 X 10*3/uL (0.00-0.10); Basophils % (A) 1.2 %; Eosinophils # (A) 0.18 X 10*3/uL (0.04-0.35); Eosinophils % (A) 7.3 %; HCT 24.4 % (39.6-50.0); Immature Grans, Automated 0 %; Lymphocytes # (A) 1.54 X 10*3/uL (0.90-5.00); Lymphocytes % (A) 62.3 %; MCH 27.8 pg (27.0-32.0); MCHC 28.7 g/dL (32.0-37.0); MCV 96.8 fL (80.0-97.0); Mean Platelet Volume 9.8 fL (9.5-12.2); Monocytes % (A) 24.3 %; NRBC Per 100 WBC 4.9 /100 WBCS (0.0-0.0); Neutrophils % (A) 4.9 %; Platelet Count 335 X 10*3/uL (140-440); RBC 2.52 X 10*6/uL (4.40-5.60); RDW 20.3 % (11.5-14.5); WBC 2.47 X 10*3/uL (4.50-10.00)
[2021-10-01 10:36] LABS: African American GFR (CKD) 108.7 (60.0-200.0); BUN/Creat Ratio 22.78 Ratio (12.00-20.00); Blood Urea Nitrogen 20.5 mg/dL (9.0-27.0); Calcium 7.1 mg/dL (8.7-10.3); Non-African American GFR(CKD) 93.8 (60.0-200.0); Potassium 4.5 mmol/L (3.5-5.5)
[2021-10-01 10:47] LABS: Neutrophils # (A) 0.12 X 10*3/uL (1.80-7.70)
[2021-10-01 10:49] LABS: Erythrocyte Sedimentation Rate 108 mm/hr (0-15)
--- NOTE | 2021-10-01 11:53 | P.HPIM ---
History of Present Illness This is a pleasant 56 years old male with past medical history of GERD/Reflux, Hyperlipidemia, Hypertension, Osteoarthritis ,Recent rectal bleed/colonoscopy with polypectomy, anemia, L lower extremity edema since July 2021, murmur, 03/2021 pt had covid. Patient presents because of worsening swelling of the legs and hands . Patient states that he is having leg swelling and both sites for 3 weeks, he wants to see his PCP who prescribed him water pills which started to put him in the beginning but now he stopped going to the bathroom and his leg swelling got worse over the last 2 weeks. Recently also I noticed that his both hands. That's wall into but to a lesser degree. He's competitive from little shortness of breath on exertion but no chest pain. No coughing. No headache or weakness or numbness. No urinary complaints like urgency or dysuria. No vomiting or diarrhea or abdominal pain. He used to smoke and quit a few weeks ago. No alcohol or illicit drugs. on admission patient is afebrile, heart rate about 54. Blood pressure 123/64. No shown leukopenia of 2 with anemia with hemoglobin 7.9, platelet count is e levated 16. Also patient has neutropenia as 0.1. INR 0.9. BNP is unremarkable with creatinine 1.0. Sodium 132. Never enzymes not elevated. ProBNP is 442 on troponin is negative. EKG does show sinus bradycardia at 58 with right bundle branch block and QTC 482 Chest x-ray: Chronic changes without acute pulmonary process. No significant change from December Review of Systems Review of systems CONSTITUTIONAL: No fever, no malaise, no fatigue. HEENT: No recent visual problems or hearing problems. Denied any sore throat. CARDIOVASCULAR: No orthopnea, PND, no palpitations, no syncope. PULMONARY: No shortness of breath, no cough, no hemoptysis. GASTROINTESTINAL: No diarrhea, no nausea, no vomiting, no abdominal pain. Normoactive bowel sounds. NEUROLOGICAL: No headaches, no weakness, no numbness. HEMATOLOGICAL: Denies any bleeding or petechiae. GENITOURINARY: Denies any burning micturition, frequency, or urgency. MUSCULOSKELETAL/RHEUMATOLOGICAL: Denies any joint pain, swelling, or any muscle pain. ENDOCRINE: Denies any polyuria or polydipsia. Past Medical History Past Medical History: Chest Pain / Angina, GERD/Reflux, Hyperlipidemia, Hypertension, Osteoarthritis (OA) Additional Past Medical History / Comment(s): Recent rectal bleed/colonoscopy with polypectomy, anemia, L lower extremity edema since July 2021, murmur, 03/2021 pt had covid. History of Any Multi-Drug Resistant Organisms: None Reported Past Surgical History: Joint Replacement, Orthopedic Surgery Additional Past Surgical History / Comment(s): 09/24/21 colonoscopy/polypectomy, bilateral knee arthroscopies, bilateral total knee arthroplasties/post op I&D R knee incision. Past Anesthesia/Blood Transfusion Reactions: No Reported Reaction Additional Past Anesthesia/Blood Transfusion Reaction / Comment(s): . Past Psychological History: No Psychological Hx Reported Additional Psychological History / Comment(s): Pt resides with his spouse and adult son. He is independent. Smoking Status: Current every day smoker Past Alcohol Use History: None Reported Additional Past Alcohol Use History / Comment(s): Pt started smoking in 1976 and has cut down to 1/2 ppd. He used to drink alcohol and heavier in the distant past but has not drank any alcohol in past 6 months. Past Drug Use History: None Reported Additional Drug Use History / Comment(s): denies - Past Family History Mother Family Medical History: Cancer Additional Family Medical History / Comment(s): STOMACH Father Family Medical History: Cancer Additional Family Medical History / Comment(s): Unsure type of cancer. Medications and Allergies Home Medications Medication Instructions Recorded Confirmed Type amLODIPine/ATORVASTATIN 1 tab PO DAILY 03/31/21 09/30/21 History [amLODIPine/ATORVASTATIN 5-10 MG] Aspirin EC [Ecotrin Low Dose] 81 mg PO HS 09/30/21 09/30/21 History Furosemide [Lasix] 20 mg PO HS 09/30/21 09/30/21 History Zinc 50 mg PO HS 09/30/21 09/30/21 History Allergies Allergy/AdvReac Type Severity Reaction Status Date / Time No Known Allergies Allergy Verified 09/30/21 13:15 Physical Exam Vitals: Vital Signs Temp Pulse Pulse Resp BP BP Pulse Ox 10/01/21 06:00 97.8 F 54 L 16 123/64 94 L 09/30/21 20:00 18 09/30/21 18:52 97.9 F 64 18 122/58 95 09/30/21 15:03 97.4 F L 54 L 16 137/68 98 09/30/21 14:10 55 L 18 132/60 96 09/30/21 14:00 97.4 F L 54 L 16 137/68 98 09/30/21 12:30 54 L 16 129/94 97 09/30/21 11:34 55 L 14 114/54 98 09/30/21 11:04 97.9 F 58 L 16 127/63 98 Intake and Output 09/30/21 09/30/21 10/01/21 14:59 22:59 06:59 Intake Total 600 590 Balance 600 590 Intake: Oral 600 590 Other: Voiding Method Toilet # Voids 2 Weight 95.254 kg 95.254 kg GENERAL: The patient is alert and oriented x3, not in any acute distress. Well developed, well nourished. HEENT: Pupils are round and equally reacting to light. EOMI. No scleral icterus. No conjunctival pallor. Normocephalic, atraumatic. No pharyngeal erythema. No thyromegaly. CARDIOVASCULAR: S1 and S2 present. No murmurs, rubs, or gallops. PULMONARY: Chest is clear to auscultation, no wheezing or crackles. ABDOMEN: Soft, nontender, nondistended, normoactive bowel sounds. No palpable organomegaly. MUSCULOSKELETAL: No joint swelling or deformity. -EXTREMITIES: No cyanosis, clubbing, 2+ bilateral pitting leg edema, bilateral mild and edema NEUROLOGICAL: Gross neurological examination did not reveal any focal deficits. SKIN: No rashes. no petechiae. Results CBC & Chem 7: 10/01/21 09:07 10/01/21 09:07 Labs: Abnormal Lab Results - Last 24 Hours (Table) 09/30/21 09/30/21 Range/Units 11:53 11:53 WBC 2.0 L (3.8-10.6) k/uL RBC 2.66 L (4.30-5.90) m/uL Hgb 7.9 L (13.0-17.5) gm/dL Hct 25.9 L (39.0-53.0) % MCHC 30.6 L (31.0-37.0) g/dL RDW 20.5 H (11.5-15.5) % Plt Count 610 H (150-450) k/uL Neutrophils # (Manual) 0.10 L* (1.3-7.7) k/uL Nucleated RBCs 8 H (0-0) /100 WBC Sodium 132 L (137-145) mmol/L BUN 23 H (9-20) mg/dL Glucose 111 H (74-99) mg/dL Calcium 6.6 L (8.4-10.2) mg/dL Alkaline Phosphatase 205 H (38-126) U/L Total Protein 4.2 L (6.3-8.2) g/dL Albumin 1.8 L (3.5-5.0) g/dL Thrombosis Risk Factor Assmnt - Choose All That Apply Any of the Below Risk Factors Present?: Yes Each Factor Represents 1 point: Swollen legs (current) Other Risk Factors: No Other congenital or acquired thrombophilia - If yes, enter type in comment: No Thrombosis Risk Factor Assessment Total Risk Factor Score: 1 Thrombosis Risk Factor Assessment Level: Low Risk Assessment and Plan Assessment: Leukopenia and neutropenia Bilateral extremity swelling, associated with hypoalbuminemia. sinus bradycardia, chronic and asymptomatic associated with right bundle branch block Hypertension Hyperlipidemia History of osteoarthritis History of GERD Plan: This is a pleasant 56 years old male who presents with extremity swelling and leukopenia Check urine analysis Hematology/oncology consult Check lower extremity ultrasound Continue with serology workup requested by hematology/oncology team labs and medication were reviewed.. Continue same treatment. Continue with symptomatic treatment. Resume home medication. Monitor lytes and vitals. DVT and GI prophylaxis. Further recommendationsas per clinical course of the patient DVT prophylaxis: Subcutaneous heparin GI Prophylaxis: Pepcid PT/OT: Pending Prognosis is guarded
--- NOTE | 2021-10-01 12:05 | US ---
EXAMINATION TYPE: US venous doppler duplex LE DATE OF EXAM: 10/01/2021 11:17 AM COMPARISON: US 2021 CLINICAL HISTORY: ble edema. Bilateral leg swelling Exam done portable SIDE PERFORMED: Bilateral TECHNIQUE: The lower extremity deep venous system is examined utilizing real time linear array sonog nyasia with graded compression, doppler sonography and color-flow sonography. VESSELS IMAGED: Common Femoral Vein Deep Femoral Vein Greater Saphenous Vein * Femoral Vein Popliteal Vein Small Saphenous Vein * Proximal Calf Veins (* superficial vessels) Right Leg: Appears negative for DVT Left Leg: Appears negative for DVT IMPRESSION: No evidence for DVT at this time.
[2021-10-01] MEDS: HEPARIN SODIUM,PORCINE/PF 5,000 UNIT/0.5 ML SYRINGE SQ SCH ×2 (12:17→20:25)
[2021-10-01 13:39] LABS: Appearance,Urine Clear (Clear); Bilirubin,Urine Negative (Negative); Blood,Urine Small (Negative); Color,Urine Yellow; Glucose,Urine (UA) Negative (Negative); Ketones,Urine Negative (Negative); Leukocyte Esterase,Urine Negative (Negative); Mucus,Urine Rare /hpf; Nitrite,Urine Negative (Negative); PH, Urine 6.5 (5.0-8.0); Protein,Urine 3+ (Negative); RBC,Urine 1 /hpf (0-5); Specific Gravity,Urine 1.013 (1.001-1.035); Squamous Epithelial Cell,Urine <1 /hpf (0-4); Urobilinogen,Urine <2.0 mg/dL (<2.0); WBC,Urine 4 /hpf (0-5)
[2021-10-01] MEDS ORDERED: IOPAMIDOL CONTRAST (ORAL USE) VIAL PO PRN (14:42)
[2021-10-01 14:46] LABS: Neutrophils # (M) 0.18 k/uL (1.3-7.7)
[2021-10-01 18:22] LABS: % Iron Saturation 9.43 (15.00-50.00); Iron 23 ug/dL (65-175); Rheumatoid Factor, Qnt <10 IU/mL (0-15); Total Iron Binding Capacity 245 ug/dL (228-460)
--- NOTE | 2021-10-01 19:19 | P.CONS ---
History of Present Illness - Reason for Consult Consult date: 10/01/21 Bicytopenina Requesting physician: Clayton Dick - History of Present Illness Mr. Carreno is a 56 year old male that has a first consultation with us in the office at the end of October, referred by his PCP for Bicytopenia. He recently underwent colonoscopy with Dr. Rodriguez for rectal bleeding biopsy was taken and path with tubular adenoma, no malignancy. he presented to hospital for increased Bilateral LE edema. I trending his CBC he has had slowly progressive anemia since 2017. More recently he has leukopenia with evidence neutropenia. Prior admission positive for MRSA infections. This was back in 2017 in conjunction with Knee replacement Review of Systems All systems: negative Constitutional: Reports as per HPI Past Medical History Past Medical History: Chest Pain / Angina, GERD/Reflux, Hyperlipidemia, Hypertension, Osteoarthritis (OA) Additional Past Medical History / Comment(s): Recent rectal bleed/colonoscopy with polypectomy, anemia, L lower extremity edema since July 2021, murmur, 03/2021 pt had covid. History of Any Multi-Drug Resistant Organisms: None Reported Past Surgical History: Joint Replacement, Orthopedic Surgery Additional Past Surgical History / Comment(s): 09/24/21 colonoscopy/polypectomy, bilateral knee arthroscopies, bilateral total knee arthroplasties/post op I&D R knee incision. Past Anesthesia/Blood Transfusion Reactions: No Reported Reaction Additional Past Anesthesia/Blood Transfusion Reaction / Comm: . Past Psychological History: No Psychological Hx Reported Additional Psychological History / Comment(s): Pt resides with his spouse and adult son. He is independent. Smoking Status: Current every day smoker Past Alcohol Use History: None Reported Additional Past Alcohol Use History / Comment(s): Pt started smoking in 1976 and has cut down to 1/2 ppd. He used to drink alcohol and heavier in the distant past but has not drank any alcohol in past 6 months. Past Drug Use History: None Reported Additional Drug Use History / Comment(s): denies - Past Family History Mother Family Medical History: Cancer Additional Family Medical History / Comment(s): STOMACH Father Family Medical History: Cancer Additional Family Medical History / Comment(s): Unsure type of cancer. Medications and Allergies Home Medications Medication Instructions Recorded Confirmed Type amLODIPine/ATORVASTATIN 1 tab PO DAILY 03/31/21 09/30/21 History [amLODIPine/ATORVASTATIN 5-10 MG] Aspirin EC [Ecotrin Low Dose] 81 mg PO HS 09/30/21 09/30/21 History Furosemide [Lasix] 20 mg PO HS 09/30/21 09/30/21 History Zinc 50 mg PO HS 09/30/21 09/30/21 History Allergies Allergy/AdvReac Type Severity Reaction Status Date / Time No Known Allergies Allergy Verified 09/30/21 13:15 Physical Exam Vitals: Vital Signs Temp Pulse Pulse Resp BP BP Pulse Ox 10/01/21 06:00 97.8 F 54 L 16 123/64 94 L 09/30/21 20:00 18 09/30/21 18:52 97.9 F 64 18 122/58 95 09/30/21 15:03 97.4 F L 54 L 16 137/68 98 09/30/21 14:10 55 L 18 132/60 96 09/30/21 14:00 97.4 F L 54 L 16 137/68 98 09/30/21 12:30 54 L 16 129/94 97 09/30/21 11:34 55 L 14 114/54 98 09/30/21 11:04 97.9 F 58 L 16 127/63 98 Intake and Output 09/30/21 10/01/21 10/01/21 22:59 06:59 14:59 Intake Total 600 590 Balance 600 590 Intake: Oral 600 590 Other: Voiding Method Toilet # Voids 2 Weight 95.254 kg - Constitutional General appearance: cooperative - EENT Eyes: EOMI ENT: NA/AT - Neck Neck: normal ROM - Respiratory Respiratory: bilateral: diminished - Cardiovascular Rhythm: regularly irregular - Gastrointestinal General gastrointestinal: soft - Integumentary Integumentary: pale - Neurologic Neurologic: CNII-XII intact - Musculoskeletal Musculoskeletal: generalized weakness - Psychiatric Psychiatric: A&O x's 3, appropriate affect Results CBC & Chem 7: 10/01/21 09:07 10/01/21 09:07 Labs: Abnormal Lab Results - Last 24 Hours (Table) 09/30/21 09/30/21 Range/Units 11:53 11:53 WBC 2.0 L (3.8-10.6) k/uL RBC 2.66 L (4.30-5.90) m/uL Hgb 7.9 L (13.0-17.5) gm/dL Hct 25.9 L (39.0-53.0) % MCHC 30.6 L (31.0-37.0) g/dL RDW 20.5 H (11.5-15.5) % Plt Count 610 H (150-450) k/uL Neutrophils # (Manual) 0.10 L* (1.3-7.7) k/uL Nucleated RBCs 8 H (0-0) /100 WBC Sodium 132 L (137-145) mmol/L BUN 23 H (9-20) mg/dL Glucose 111 H (74-99) mg/dL Calcium 6.6 L (8.4-10.2) mg/dL Alkaline Phosphatase 205 H (38-126) U/L Total Protein 4.2 L (6.3-8.2) g/dL Albumin 1.8 L (3.5-5.0) g/dL Chest x-ray: report reviewed Assessment and Plan (1) Thrombocytosis Current Visit: Yes Status: Acute Code(s): D75.839 - THROMBOCYTOSIS, UNSPECIFIED SNOMED Code(s): 5670278 (2) Anemia Narrative/Plan: Full work-up ordered Status post Colonoscopy in August. Current Visit: Yes Status: Acute Code(s): D64.9 - ANEMIA, UNSPECIFIED SNOMED Code(s): 309200766 (3) Leukopenia Narrative/Plan: Unclear etiology, evidence of neutropenia Full inflammatory work-up ordered along with infectious work-up Current Visit: Yes Status: Acute Code(s): D72.819 - DECREASED WHITE BLOOD CELL COUNT, UNSPECIFIED SNOMED Code(s): 67958357 (4) Neutropenic Current Visit: Yes Status: Acute Code(s): D70.9 - NEUTROPENIA, UNSPECIFIED SNOMED Code(s): 115533494 Plan: History of ETOH abuse and daily use, Daily TObacco 1-2 packs, possible underlying liver disease. Abdominal imaging ordering and bicytopenia work-up
[2021-10-01] MEDS: FAMOTIDINE 20 MG/2 ML VIAL IV SCH (20:25)
[2021-10-01] MEDS: FUROSEMIDE 20 MG TAB PO SCH (20:27)
[2021-10-01] MEDS: ZINC SULFATE 220 MG CAP PO SCH (20:27)
[2021-10-01] MEDS: ASPIRIN 81 MG PO SCH (20:27)
--- NOTE | 2021-10-01 22:25 | CT ---
EXAMINATION TYPE: CT abdomen pelvis w con DATE OF EXAM: 10/01/2021 COMPARISON: None HISTORY: Liver, assess adenopathy perito, iliac CT DLP: 1518.40 mGycm Automated exposure control for dose reduction was used. CONTRAST: Performed with IV Contrast, patient injected with 70 mL of Isovue 300. Images obtained from the diaphragm to the floor of the pelvis with oral and IV contrast. There are bilateral pleural effusions. Heart size is normal. No pericardial effusion. There is morocho ry artery calcification. Liver and spleen are intact. There is small hiatal hernia. The stomach is intact. No pancreatic mass. Gallbladder appears normal. The bile ducts are not dilated. There is no adrenal mass. Kidneys have normal size and contour. There is normal contrast opacificatio n of the kidneys. No hydronephrosis. There is no retroperitoneal adenopathy. Ureters are not dilated. Bladder distends smoothly. No inguinal hernia. No free fluid in the pelvis. There is minimal strandi ng around the right kidney. Small bowel pattern is normal. No sign of a bowel obstruction. No mesenteric edema. No ascites or sly e air. The oral contrast reaches the distal ileum. Appendix not seen. No sign of thickened appendix. The lumbar vertebrae have normal alignment. No compression fracture. There is narrowing at L4-5 and L 5-S1 disc spaces with spurring. The bony pelvis shows bilateral hip joint space narrowing and spur fo rmation. No compression fracture. IMPRESSION: Bilateral mild to moderate pleural effusions. Minimal atelectasis and infiltrate the left lung base. No definite acute abnormality within the abdomen and pelvis. No evidence of abdominal lymphadenopathy . There is moderate bilateral hip joint osteoarthritis. There is minimal fat stranding around the lat eral right kidney of uncertain significance. No hydronephrosis.
[2021-10-02 05:05] LABS: Immunoglobulin M <25.0 mg/dL (40.0-280.0)
[2021-10-02] MEDS: HEPARIN SODIUM,PORCINE/PF 5,000 UNIT/0.5 ML SYRINGE SQ SCH ×2 (09:31→20:27)
[2021-10-02] MEDS: FAMOTIDINE 20 MG/2 ML VIAL IV SCH (09:31)
[2021-10-02] MEDS: ATORVASTATIN 10 MG TAB PO SCH (09:31)
[2021-10-02] MEDS: amLODIPine 5 MG TAB PO SCH (09:31)
[2021-10-02] MEDS: FOLIC ACID 1 MG TAB PO SCH (09:36)
--- NOTE | 2021-10-02 09:42 | P.PN ---
Subjective Progress Note Date: 10/02/21 Principal diagnosis: Cytopenias Per radiology report no abnormalities seen in liver, may require a more focused exam to truly rule out however noted deficiencies that may be underlying factors to leukopenia and anemia have been identified. Folate and B12 are markedly low. Further evaluation for pernicious anemia ordered. Patient also has a known history and recent use of daily/excessive alcohol use, which may be related to nutritional deficiencies. We have also asked surgery to perform EGD, patient states has only had colonoscopy. Immunoglobulins are decreased IgG and Igm. Underlying viral infections HIV, Hepatitis, EBV would also be considered in differential. Objective - Vital Signs Vital signs: Vital Signs Temp 98.2 F 10/02/21 04:04 Pulse 65 10/02/21 04:04 Resp 18 10/02/21 04:04 BP 159/57 10/02/21 04:04 Pulse Ox 93 L 10/02/21 04:04 FiO2 Intake & Output 10/01/21 10/02/21 10/02/21 18:59 06:59 18:59 Intake Total 600 Balance 600 Intake: Oral 600 Other: Voiding Method Toilet Toilet # Voids 2 2 - Exam - Constitutional General appearance: cooperative - EENT Eyes: EOMI ENT: NA/AT - Neck Neck: normal ROM - Respiratory Respiratory: bilateral: diminished - Cardiovascular Rhythm: regularly irregular - Gastrointestinal General gastrointestinal: soft, Distended - Integumentary Integumentary: pale BLE Edema - Neurologic Neurologic: CNII-XII intact - Musculoskeletal Musculoskeletal: generalized weakness - Psychiatric Psychiatric: A&O x's 3, appropriate affect - Labs CBC & Chem 7: 10/01/21 09:07 10/01/21 09:07 Labs: Abnormal Lab Results - Last 24 Hours (Table) 10/01/21 10/01/21 10/01/21 Range/Units 04:41 04:41 09:07 WBC 2.47 L 1.6 L (4.50-10.00) X 10*3/uL RBC 2.52 L 2.55 L (4.40-5.60) X 10*6/uL Hgb 7.0 L 7.5 L (13.0-17.0) g/dL Hct 24.4 L 24.9 L (39.6-50.0) % MCHC 28.7 L 30.1 L (32.0-37.0) g/dL RDW 20.3 H 20.7 H (11.5-14.5) % Plt Count 538 H (150-450) k/uL Absolute Nucleated RBC 0.12 H (0.00-0.00) X 10*3/uL Neutrophils # 0.12 L* 0.2 L* (1.80-7.70) X 10*3/uL Neutrophils # (Manual) 0.18 L* (1.3-7.7) k/uL Lymphocytes # (Manual) 0.88 L (1.0-4.8) k/uL NRBC/100 WBC Diff 4.9 H (0.0-0.0) /100 WBCS ESR 108 H (0-15) mm/hr Retic Count 3.4 H (0.5-2.0) % Sodium 134 L (135-145) mmol/L Anion Gap 8.00 L (10.00-18.00) mmol/L BUN/Creatinine Ratio 22.78 H (12.00-20.00) Ratio Glucose (74-99) mg/dL Calcium 7.1 L (8.7-10.3) mg/dL Iron (65-175) ug/dL % Saturation (15.00-50.00) Transferrin (204.0-354.0) mg/dL Total Bilirubin (0.2-1.3) mg/dL Alkaline Phosphatase (38-126) U/L Lactate Dehydrogenase (313-618) U/L Total Protein (6.3-8.2) g/dL Total Protein (PEP) (6.2-8.2) g/dL Albumin (3.5-5.0) g/dL Vitamin B12 (200.0-944.0) pg/mL Vitamin D 25-Hydroxy (30.0-100.0) ng/mL Folate (4.40-31.00) ng/mL Urine Protein (Negative) Urine Blood (Negative) Urine Mucus (None) /hpf IgG (700.0-1600.0) mg/dL IgM (40.0-280.0) mg/dL 10/01/21 10/01/21 10/01/21 Range/Units 09:07 09:07 09:07 WBC (4.50-10.00) X 10*3/uL RBC (4.40-5.60) X 10*6/uL Hgb (13.0-17.0) g/dL Hct (39.6-50.0) % MCHC (32.0-37.0) g/dL RDW (11.5-14.5) % Plt Count (150-450) k/uL Absolute Nucleated RBC (0.00-0.00) X 10*3/uL Neutrophils # (1.80-7.70) X 10*3/uL Neutrophils # (Manual) (1.3-7.7) k/uL Lymphocytes # (Manual) (1.0-4.8) k/uL NRBC/100 WBC Diff (0.0-0.0) /100 WBCS ESR (0-15) mm/hr Retic Count (0.5-2.0) % Sodium 133 L (135-145) mmol/L Anion Gap (10.00-18.00) mmol/L BUN/Creatinine Ratio (12.00-20.00) Ratio Glucose 104 H (74-99) mg/dL Calcium 6.7 L (8.7-10.3) mg/dL Iron 23 L (65-175) ug/dL % Saturation 9.43 L (15.00-50.00) Transferrin 175.0 L (204.0-354.0) mg/dL Total Bilirubin <0.1 L (0.2-1.3) mg/dL Alkaline Phosphatase 185 H (38-126) U/L Lactate Dehydrogenase 649 H (313-618) U/L Total Protein 4.0 L (6.3-8.2) g/dL Total Protein (PEP) 4.0 L (6.2-8.2) g/dL Albumin 1.8 L (3.5-5.0) g/dL Vitamin B12 150.0 L (200.0-944.0) pg/mL Vitamin D 25-Hydroxy 25.8 L (30.0-100.0) ng/mL Folate 2.30 L (4.40-31.00) ng/mL Urine Protein (Negative) Urine Blood (Negative) Urine Mucus (None) /hpf IgG (700.0-1600.0) mg/dL IgM (40.0-280.0) mg/dL 10/01/21 10/01/21 Range/Units 09:07 13:20 WBC (4.50-10.00) X 10*3/uL RBC (4.40-5.60) X 10*6/uL Hgb (13.0-17.0) g/dL Hct (39.6-50.0) % MCHC (32.0-37.0) g/dL RDW (11.5-14.5) % Plt Count (150-450) k/uL Absolute Nucleated RBC (0.00-0.00) X 10*3/uL Neutrophils # (1.80-7.70) X 10*3/uL Neutrophils # (Manual) (1.3-7.7) k/uL Lymphocytes # (Manual) (1.0-4.8) k/uL NRBC/100 WBC Diff (0.0-0.0) /100 WBCS ESR (0-15) mm/hr Retic Count (0.5-2.0) % Sodium (135-145) mmol/L Anion Gap (10.00-18.00) mmol/L BUN/Creatinine Ratio (12.00-20.00) Ratio Glucose (74-99) mg/dL Calcium (8.7-10.3) mg/dL Iron (65-175) ug/dL % Saturation (15.00-50.00) Transferrin (204.0-354.0) mg/dL Total Bilirubin (0.2-1.3) mg/dL Alkaline Phosphatase (38-126) U/L Lactate Dehydrogenase (313-618) U/L Total Protein (6.3-8.2) g/dL Total Protein (PEP) (6.2-8.2) g/dL Albumin (3.5-5.0) g/dL Vitamin B12 (200.0-944.0) pg/mL Vitamin D 25-Hydroxy (30.0-100.0) ng/mL Folate (4.40-31.00) ng/mL Urine Protein 3+ H (Negative) Urine Blood Small H (Negative) Urine Mucus Rare H (None) /hpf IgG 694.0 L (700.0-1600.0) mg/dL IgM <25.0 L (40.0-280.0) mg/dL Microbiology - Last 24 Hours (Table) 09/30/21 15:26 Blood Culture - Preliminary Blood No Growth after 24 hours 09/30/21 14:58 Blood Culture - Preliminary Blood No Growth after 24 hours Assessment and Plan (1) Thrombocytosis Current Visit: Yes Status: Acute Code(s): D75.839 - THROMBOCYTOSIS, UNSPECIFIED SNOMED Code(s): 9110254 (2) Anemia Narrative/Plan: Full work-up ordered Status post Colonoscopy in August. Current Visit: Yes Status: Acute Code(s): D64.9 - ANEMIA, UNSPECIFIED SNOMED Code(s): 057437860 (3) Leukopenia Narrative/Plan: Unclear etiology, evidence of neutropenia Full inflammatory work-up ordered along with infectious work-up Per radiology report no abnormalities seen in liver, may require a more focused exam to truly rule out however noted deficiencies that may be underlying factors to leukopenia and anemia have been identified. Folate and B12 are markedly low. Further evaluation for pernicious anemia ordered. Patient also has a known history and recent use of daily/excessive alcohol use, which may be related to nutritional deficiencies. We have also asked surgery to perform EGD, patient states has only had colonoscopy. Immunoglobulins are decreased IgG and Igm. Underlying viral infections HIV, Hepatitis, EBV would also be considered in differential. Await CBC today Current Visit: Yes Status: Acute Code(s): D72.819 - DECREASED WHITE BLOOD CELL COUNT, UNSPECIFIED SNOMED Code(s): 97000943 (4) Neutropenic Current Visit: Yes Status: Acute Code(s): D70.9 - NEUTROPENIA, UNSPECIFIED SNOMED Code(s): 112159948 Plan: History of ETOH abuse and daily use, Daily TObacco 1-2 packs, possible underl bhargavi liver disease. Abdominal imaging ordering and bicytopenia work-up CT Negative B12, Folic acid and Vitamin D3 supplements ordered Pernicious anemia work-up pending EGD
[2021-10-02] MEDS: CYANOCOBALAMIN 1,000 MCG/ML 1 ML VIAL IM SCH (10:26)
[2021-10-02 11:04] LABS: Basophils # (A) 0.01 X 10*3/uL (0.00-0.10); Basophils % (A) 0.6 %; Eosinophils # (A) 0.13 X 10*3/uL (0.04-0.35); Eosinophils % (A) 7.2 %; HCT 23.5 % (39.6-50.0); HGB 7.1 g/dL (13.0-17.0); Immature Grans, Automated 0 %; Lymphocytes # (A) 1.16 X 10*3/uL (0.90-5.00); Lymphocytes % (A) 64.1 %; MCH 28.6 pg (27.0-32.0); MCHC 30.2 g/dL (32.0-37.0); MCV 94.8 fL (80.0-97.0); Mean Platelet Volume 9.8 fL (9.5-12.2); Monocytes # (A) 0.43 X 10*3/uL (0.20-1.00); Monocytes % (A) 23.8 %; NRBC Per 100 WBC 4.4 /100 WBCS (0.0-0.0); Neutrophils % (A) 4.3 %; Platelet Count 366 X 10*3/uL (140-440); RBC 2.48 X 10*6/uL (4.40-5.60); RDW 20.6 % (11.5-14.5); WBC 1.81 X 10*3/uL (4.50-10.00)
[2021-10-02 11:10] LABS: ALT 30 U/L (10-49); AST 30 U/L (14-35); African American GFR (CKD) 108.7 (60.0-200.0); Albumin 1.9 g/dL (3.8-4.9); Alkaline Phosphatase 186 U/L (41-126); BUN/Creat Ratio 19.67 Ratio (12.00-20.00); Blood Urea Nitrogen 17.7 mg/dL (9.0-27.0); Calcium 7.4 mg/dL (8.7-10.3); Carbon Dioxide 24.7 mmol/L (20.0-27.5); Chloride 103 mmol/L (96-109); Globulin 2.1 g/dL (1.6-3.3); Glucose 79 mg/dL (70-110); Magnesium 2.2 mg/dL (1.5-2.4); Non-African American GFR(CKD) 93.8 (60.0-200.0); Phosphorus 3.9 mg/dL (2.4-5.1); Potassium 4.6 mmol/L (3.5-5.5); Sodium 136 mmol/L (135-145); Total Bilirubin <0.15 mg/dL (0.30-1.20)
[2021-10-02 11:38] LABS: Neutrophils # (A) 0.08 X 10*3/uL (1.80-7.70)
--- NOTE | 2021-10-02 12:34 | P.GSCN ---
History of Present Illness Consult date: 10/02/21 History of present illness: CHIEF COMPLAINT: Bilateral leg swelling HISTORY OF PRESENT ILLNESS: This is a 56-year-old male who presented with bilateral leg swelling. Patient had evidence of leukopenia and anemia. Last colonoscopy was on 09/24/[address] Hall which had showed colon polyps, hemorrhoids and diverticulosis. Patient's denies any blood in his stools or black stools. However, upon further questioning he does report he occasionally has blood on the tissue paper when he wipes and feels that that is likely related to his hemorrhoids. He has this occur probably once a week. Hemoglobin is currently 7.5. Patient denies any abdominal pain. Nausea or vomiting. Patient being evaluated by oncology regarding the leukopenia and anemia. They've requested surgical service evaluation for EGD. Patient denies any NSAID use. Denies any blood thinners. Patient seen and examined with Dr. renteria PAST MEDICAL HISTORY: Hyperlipidemia, osteoarthritis PAST SURGICAL HISTORY: See list. MEDICATIONS: See list. ALLERGIES: See list. SOCIAL HISTORY: No illicit drug use. REVIEW OF SYSTEMS: CONSTITUTIONAL: Denies fever or chills. HEENT: Denies blurred vision, vision changes, or eye pain. Denies hemoptysis CARDIOVASCULAR: Denies chest pain or pressure. RESPIRATORY: No shortness of breath. GASTROINTESTINAL: See HPI for pertinent findings HEMATOLOGIC: Denies bleeding disorders. GENITOURINARY: Denies any blood in urine or increased urinary frequency. SKIN: Denies pruitis. Denies rash. PHYSICAL EXAM: VITAL SIGNS: Reviewed GENERAL: Well-developed in no acute distress. HEENT: No sclera icterus. Extraocular movements grossly intact. Moist buccal mucosa. Head is atraumatic, normocephalic. No nasal drainage. ABDOMEN: Soft. Nondistended. Nontender NEUROLOGIC: Alert and oriented. Cranial nerves II through XII grossly intact. LABORATORY DATA: WBC 1.81 Hgb 7.1 platelets 366 Sodium 136 potassium 4.6 creatinine 0.9 Iron low at 23 B12 low at 150 vitamin D 25.8 Albumin 1.9 IMAGING: Computed tomography scan abdomen and pelvis no acute abnormality within the pelvis and abdomen. No evidence of abdominal lymphadenopathy. Bilateral mild to moderate pleural effusions. Minimal atelectasis. Venous Dopplers negative for DVT bilaterally ASSESSMENT: 1. Anemia with weekly evidence of bright red blood per rectum noted on tissue paper 2. Recent colonoscopy 09/24/2021 with colon polyps, diverticulosis and hemorrhoids 3. Leukopenia 4. B12 deficiency 5. Prior history of heavy alcohol use PLAN: -Patient scheduled for EGD on 10/05/[address] renteria -Continue hematology workup -Continue supportive care -Continue monitor hemoglobin -Continue monitor for any signs or symptoms of bleeding Thank you for this consultation Physician [facility] note has been reviewed by physician. Signing provider agrees with the documented findings, assessment, and plan of care. Past Medical History Past Medical History: Chest Pain / Angina, GERD/Reflux, Hyperlipidemia, Hypertension, Osteoarthritis (OA) Additional Past Medical History / Comment(s): Recent rectal bleed/colonoscopy with polypectomy, anemia, L lower extremity edema since July 2021, murmur, 03/2021 pt had covid. History of Any Multi-Drug Resistant Organisms: None Reported Past Surgical History: Joint Replacement, Orthopedic Surgery Additional Past Surgical History / Comment(s): 09/24/21 colonoscopy/polypectomy, bilateral knee arthroscopies, bilateral total knee arthroplasties/post op I&D R knee incision. Past Anesthesia/Blood Transfusion Reactions: No Reported Reaction Additional Past Anesthesia/Blood Transfusion Reaction / Comm: . Past Psychological History: No Psychological Hx Reported Additional Psychological History / Comment(s): Pt resides with his spouse and adult son. He is independent. Smoking Status: Current every day smoker Past Alcohol Use History: None Reported Additional Past Alcohol Use History / Comment(s): Pt started smoking in 1976 and has cut down to 1/2 ppd. He used to drink alcohol and heavier in the distant past but has not drank any alcohol in past 6 months. Past Drug Use History: None Reported Additional Drug Use History / Comment(s): denies - Past Family History Mother Family Medical History: Cancer Additional Family Medical History / Comment(s): STOMACH Father Family Medical History: Cancer Additional Family Medical History / Comment(s): Unsure type of cancer. Medications and Allergies Home Medications Medication Instructions Recorded Confirmed Type amLODIPine/ATORVASTATIN 1 tab PO DAILY 03/31/21 09/30/21 History [amLODIPine/ATORVASTATIN 5-10 MG] Aspirin EC [Ecotrin Low Dose] 81 mg PO HS 09/30/21 09/30/21 History Furosemide [Lasix] 20 mg PO HS 09/30/21 09/30/21 History Zinc 50 mg PO HS 09/30/21 09/30/21 History Allergies Allergy/AdvReac Type Severity Reaction Status Date / Time No Known Allergies Allergy Verified 09/30/21 13:15 Surgical - Exam Vital Signs Temp Pulse Resp BP Pulse Ox 97.9 F 58 L 16 127/63 98 09/30/21 11:04 09/30/21 11:04 09/30/21 11:04 09/30/21 11:04 09/30/21 11:04 Results - Labs 10/02/21 05:49 10/02/21 05:49 Abnormal Lab Results - Last 24 Hours (Table) 10/01/21 10/01/21 10/01/21 Range/Units 04:41 04:41 09:07 WBC 2.47 L (4.50-10.00) X 10*3/uL RBC 2.52 L (4.40-5.60) X 10*6/uL Hgb 7.0 L (13.0-17.0) g/dL Hct 24.4 L (39.6-50.0) % MCHC 28.7 L (32.0-37.0) g/dL RDW 20.3 H (11.5-14.5) % Absolute Nucleated RBC 0.12 H (0.00-0.00) X 10*3/uL Neutrophils # 0.12 L* (1.80-7.70) X 10*3/uL Neutrophils # (Manual) 0.18 L* (1.3-7.7) k/uL NRBC/100 WBC Diff 4.9 H (0.0-0.0) /100 WBCS ESR 108 H (0-15) mm/hr Sodium 134 L (135-145) mmol/L Anion Gap 8.00 L (10.00-18.00) mmol/L BUN/Creatinine Ratio 22.78 H (12.00-20.00) Ratio Calcium 7.1 L (8.7-10.3) mg/dL Iron (65-175) ug/dL % Saturation (15.00-50.00) Transferrin (204.0-354.0) mg/dL Total Protein (PEP) (6.2-8.2) g/dL Vitamin B12 (200.0-944.0) pg/mL Vitamin D 25-Hydroxy (30.0-100.0) ng/mL Folate (4.40-31.00) ng/mL Urine Protein (Negative) Urine Blood (Negative) Urine Mucus (None) /hpf IgG (700.0-1600.0) mg/dL IgM (40.0-280.0) mg/dL 10/01/21 10/01/21 10/01/21 Range/Units 09:07 09:07 09:07 WBC (4.50-10.00) X 10*3/uL RBC (4.40-5.60) X 10*6/uL Hgb (13.0-17.0) g/dL Hct (39.6-50.0) % MCHC (32.0-37.0) g/dL RDW (11.5-14.5) % Absolute Nucleated RBC (0.00-0.00) X 10*3/uL Neutrophils # (1.80-7.70) X 10*3/uL Neutrophils # (Manual) (1.3-7.7) k/uL NRBC/100 WBC Diff (0.0-0.0) /100 WBCS ESR (0-15) mm/hr Sodium (135-145) mmol/L Anion Gap (10.00-18.00) mmol/L BUN/Creatinine Ratio (12.00-20.00) Ratio Calcium (8.7-10.3) mg/dL Iron 23 L (65-175) ug/dL % Saturation 9.43 L (15.00-50.00) Transferrin 175.0 L (204.0-354.0) mg/dL Total Protein (PEP) 4.0 L (6.2-8.2) g/dL Vitamin B12 150.0 L (200.0-944.0) pg/mL Vitamin D 25-Hydroxy 25.8 L (30.0-100.0) ng/mL Folate 2.30 L (4.40-31.00) ng/mL Urine Protein (Negative) Urine Blood (Negative) Urine Mucus (None) /hpf IgG (700.0-1600.0) mg/dL IgM (40.0-280.0) mg/dL 10/01/21 10/01/21 Range/Units 09:07 13:20 WBC (4.50-10.00) X 10*3/uL RBC (4.40-5.60) X 10*6/uL Hgb (13.0-17.0) g/dL Hct (39.6-50.0) % MCHC (32.0-37.0) g/dL RDW (11.5-14.5) % Absolute Nucleated RBC (0.00-0.00) X 10*3/uL Neutrophils # (1.80-7.70) X 10*3/uL Neutrophils # (Manual) (1.3-7.7) k/uL NRBC/100 WBC Diff (0.0-0.0) /100 WBCS ESR (0-15) mm/hr Sodium (135-145) mmol/L Anion Gap (10.00-18.00) mmol/L BUN/Creatinine Ratio (12.00-20.00) Ratio Calcium (8.7-10.3) mg/dL Iron (65-175) ug/dL % Saturation (15.00-50.00) Transferrin (204.0-354.0) mg/dL Total Protein (PEP) (6.2-8.2) g/dL Vitamin B12 (200.0-944.0) pg/mL Vitamin D 25-Hydroxy (30.0-100.0) ng/mL Folate (4.40-31.00) ng/mL Urine Protein 3+ H (Negative) Urine Blood Small H (Negative) Urine Mucus Rare H (None) /hpf IgG 694.0 L (700.0-1600.0) mg/dL IgM <25.0 L (40.0-280.0) mg/dL Microbiology - Last 24 Hours (Table) 09/30/21 15:26 Blood Culture - Preliminary Blood No Growth after 24 hours 09/30/21 14:58 Blood Culture - Preliminary Blood No Growth after 24 hours Diabetes panel 10/01/21 Range/Units 04:41 Sodium 134 L (135-145) mmol/L Potassium 4.5 (3.5-5.5) mmol/L Chloride 101 (96-109) mmol/L Carbon Dioxide 25.0 (20.0-27.5) mmol/L BUN 20.5 (9.0-27.0) mg/dL Creatinine 0.9 (0.6-1.5) mg/dL Glucose 89 (70-110) mg/dL Calcium 7.1 L (8.7-10.3) mg/dL Calcium panel 10/01/21 Range/Units 04:41 Calcium 7.1 L (8.7-10.3) mg/dL Pituitary panel 10/01/21 Range/Units 04:41 Sodium 134 L (135-145) mmol/L Potassium 4.5 (3.5-5.5) mmol/L Chloride 101 (96-109) mmol/L Carbon Dioxide 25.0 (20.0-27.5) mmol/L BUN 20.5 (9.0-27.0) mg/dL Creatinine 0.9 (0.6-1.5) mg/dL Glucose 89 (70-110) mg/dL Calcium 7.1 L (8.7-10.3) mg/dL Adrenal panel 10/01/21 Range/Units 04:41 Sodium 134 L (135-145) mmol/L Potassium 4.5 (3.5-5.5) mmol/L Chloride 101 (96-109) mmol/L Carbon Dioxide 25.0 (20.0-27.5) mmol/L BUN 20.5 (9.0-27.0) mg/dL Creatinine 0.9 (0.6-1.5) mg/dL Glucose 89 (70-110) mg/dL Calcium 7.1 L (8.7-10.3) mg/dL
[2021-10-02 13:12] LABS: Albumin 1.61 g/dL (3.80-4.90); Gamma Globulin 0.65 g/dL (0.70-1.50)
[2021-10-02 15:13] LABS: Free Lambda Lt Chain Qnt, Seru 5.71 mg/dL (0.57-2.63)
[2021-10-02 17:17] LABS: Amylase 82 U/L (23-121); Lipase 42 U/L (14-60)
[2021-10-02] MEDS: ASPIRIN 81 MG PO SCH (20:27)
[2021-10-02] MEDS: FAMOTIDINE 20 MG TAB PO SCH (20:27)
[2021-10-02] MEDS: ZINC SULFATE 220 MG CAP PO SCH (20:27)
[2021-10-02] MEDS: FUROSEMIDE 20 MG TAB PO SCH (20:27)
--- NOTE | 2021-10-02 21:27 | P.PN ---
Subjective Progress Note Date: 10/02/21 56 years old male with past medical history of GERD/Reflux, Hyperlipidemia, Hypertension, Osteoarthritis ,Recent rectal bleed/colonoscopy with polypectomy, anemia, L lower extremity edema since July 2021, murmur, 03/2021 pt had covid. Patient presents because of worsening swelling of the legs and hands . Patient states that he is having leg swelling and both sites for 3 weeks, he wants to see his PCP who prescribed him water pills which started to put him in the beginning but now he stopped going to the bathroom and his leg swelling got worse over the last 2 weeks. Recently also I noticed that his both hands. That's wall into but to a lesser degree. He's competitive from little shortness of breath on exertion but no chest pain. No coughing. No headache or weakness or numbness. No urinary complaints like urgency or dysuria. No vomiting or diarrhea or abdominal pain. He used to smoke and quit a few weeks ago. No alcohol or illicit drugs. on admission patient is afebrile, heart rate about 54. Blood pressure 123/64. No shown leukopenia of 2 with anemia with hemoglobin 7.9, platelet count is elevated 16. Also patient has neutropenia as 0.1. INR 0.9. BNP is unremarkable with creatinine 1.0. Sodium 132. Never enzymes not elevated. ProBNP is 442 on troponin is negative. EKG does show sinus bradycardia at 58 with right bundle branch block and QTC 482 Chest x-ray: Chronic changes without acute pulmonary process. No significant change from December Objective - Vital Signs Vital signs: Vital Signs Temp 98 F 10/02/21 12:15 Pulse 54 L 10/02/21 12:15 Resp 16 10/02/21 12:15 BP 151/73 10/02/21 12:15 Pulse Ox 95 10/02/21 12:15 FiO2 Intake & Output 10/01/21 10/02/21 10/02/21 18:59 06:59 18:59 Intake Total 600 Balance 600 Intake: Oral 600 Other: Voiding Method Toilet Toilet # Voids 2 2 - Exam GENERAL: The patient is alert and oriented x3, not in any acute distress. Well developed, well nourished. HEENT: Pupils are round and equally reacting to light. EOMI. No scleral icterus. No conjunctival pallor. Normocephalic, atraumatic. No pharyngeal erythema. No thyromegaly. CARDIOVASCULAR: S1 and S2 present. No murmurs, rubs, or gallops. PULMONARY: Chest is clear to auscultation, no wheezing or crackles. ABDOMEN: Soft, nontender, nondistended, normoactive bowel sounds. No palpable organomegaly. MUSCULOSKELETAL: No joint swelling or deformity. -EXTREMITIES: No cyanosis, clubbing, 2+ bilateral pitting leg edema, bilateral mild and edema NEUROLOGICAL: Gross neurological examination did not reveal any focal deficits. SKIN: No rashes. no petechiae. - Labs CBC & Chem 7: 10/02/21 05:49 10/02/21 05:49 Labs: Abnormal Lab Results - Last 24 Hours (Table) 10/01/21 10/01/21 10/01/21 Range/Units 09:07 09:07 09:07 WBC (4.50-10.00) X 10*3/uL RBC (4.40-5.60) X 10*6/uL Hgb (13.0-17.0) g/dL Hct (39.6-50.0) % MCHC (32.0-37.0) g/dL RDW (11.5-14.5) % Absolute Nucleated RBC (0.00-0.00) X 10*3/uL Neutrophils # (1.80-7.70) X 10*3/uL NRBC/100 WBC Diff (0.0-0.0) /100 WBCS Anion Gap (10.00-18.00) mmol/L Calcium (8.7-10.3) mg/dL Iron 23 L (65-175) ug/dL % Saturation 9.43 L (15.00-50.00) Transferrin 175.0 L (204.0-354.0) mg/dL Total Bilirubin (0.30-1.20) mg/dL Alkaline Phosphatase (41-126) U/L Total Protein (6.2-8.2) g/dL Total Protein (PEP) 4.0 L (6.2-8.2) g/dL Albumin (3.8-4.9) g/dL Albumin (PEP) 1.61 L (3.80-4.90) g/dL Albumin/Globulin Ratio (1.60-3.17) g/dL Gamma Globulins 0.65 L (0.70-1.50) g/dL Vitamin B12 150.0 L (200.0-944.0) pg/mL Vitamin D 25-Hydroxy 25.8 L (30.0-100.0) ng/mL Folate 2.30 L (4.40-31.00) ng/mL PTH Intact (14.0-72.0) pg/mL IgG (700.0-1600.0) mg/dL IgM (40.0-280.0) mg/dL Free [place] LC, Quant 14.10 H (0.33-1.94) mg/dL Free Lambda LC, Quant 5.71 H (0.57-2.63) mg/dL 10/01/21 10/02/21 10/02/21 Range/Units 09:07 05:49 05:49 WBC 1.81 L (4.50-10.00) X 10*3/uL RBC 2.48 L (4.40-5.60) X 10*6/uL Hgb 7.1 L (13.0-17.0) g/dL Hct 23.5 L (39.6-50.0) % MCHC 30.2 L (32.0-37.0) g/dL RDW 20.6 H (11.5-14.5) % Absolute Nucleated RBC 0.08 H (0.00-0.00) X 10*3/uL Neutrophils # 0.08 L* (1.80-7.70) X 10*3/uL NRBC/100 WBC Diff 4.4 H (0.0-0.0) /100 WBCS Anion Gap 8.30 L (10.00-18.00) mmol/L Calcium 7.4 L (8.7-10.3) mg/dL Iron (65-175) ug/dL % Saturation (15.00-50.00) Transferrin (204.0-354.0) mg/dL Total Bilirubin <0.15 L (0.30-1.20) mg/dL Alkaline Phosphatase 186 H (41-126) U/L Total Protein 4.0 L (6.2-8.2) g/dL Total Protein (PEP) (6.2-8.2) g/dL Albumin 1.9 L (3.8-4.9) g/dL Albumin (PEP) (3.80-4.90) g/dL Albumin/Globulin Ratio 0.90 L (1.60-3.17) g/dL Gamma Globulins (0.70-1.50) g/dL Vitamin B12 (200.0-944.0) pg/mL Vitamin D 25-Hydroxy (30.0-100.0) ng/mL Folate (4.40-31.00) ng/mL PTH Intact (14.0-72.0) pg/mL IgG 694.0 L (700.0-1600.0) mg/dL IgM <25.0 L (40.0-280.0) mg/dL Free [place] LC, Quant (0.33-1.94) mg/dL Free Lambda LC, Quant (0.57-2.63) mg/dL 10/02/21 Range/Units 10:44 WBC (4.50-10.00) X 10*3/uL RBC (4.40-5.60) X 10*6/uL Hgb (13.0-17.0) g/dL Hct (39.6-50.0) % MCHC (32.0-37.0) g/dL RDW (11.5-14.5) % Absolute Nucleated RBC (0.00-0.00) X 10*3/uL Neutrophils # (1.80-7.70) X 10*3/uL NRBC/100 WBC Diff (0.0-0.0) /100 WBCS Anion Gap (10.00-18.00) mmol/L Calcium (8.7-10.3) mg/dL Iron (65-175) ug/dL % Saturation (15.00-50.00) Transferrin (204.0-354.0) mg/dL Total Bilirubin (0.30-1.20) mg/dL Alkaline Phosphatase (41-126) U/L Total Protein (6.2-8.2) g/dL Total Protein (PEP) (6.2-8.2) g/dL Albumin (3.8-4.9) g/dL Albumin (PEP) (3.80-4.90) g/dL Albumin/Globulin Ratio (1.60-3.17) g/dL Gamma Globulins (0.70-1.50) g/dL Vitamin B12 (200.0-944.0) pg/mL Vitamin D 25-Hydroxy (30.0-100.0) ng/mL Folate (4.40-31.00) ng/mL PTH Intact 74.4 H (14.0-72.0) pg/mL IgG (700.0-1600.0) mg/dL IgM (40.0-280.0) mg/dL Free [place] LC, Quant (0.33-1.94) mg/dL Free Lambda LC, Quant (0.57-2.63) mg/dL Microbiology - Last 24 Hours (Table) 09/30/21 15:26 Blood Culture - Preliminary Blood No Growth after 24 hours 09/30/21 14:58 Blood Culture - Preliminary Blood No Growth after 24 hours Assessment and Plan Assessment: Leukopenia and neutropenia Bilateral extremity swelling, associated with hypoalbuminemia. sinus bradycardia, chronic and asymptomatic associated with right bundle branch block Hypertension Hyperlipidemia History of osteoarthritis History of GERD Plan: This is a pleasant 56 years old male who presents with extremity swelling and leukopenia Check urine analysis Hematology/oncology consult Check lower extremity ultrasound Continue with serology workup requested by hematology/oncology team labs and medication were reviewed.. Continue same treatment. Continue with symptomatic treatment. Resume home medication. Monitor lytes and vitals. DVT and GI prophylaxis. Further recommendationsas per clinical course of the patient DVT prophylaxis: Subcutaneous heparin GI Prophylaxis: Pepcid PT/OT: Pending Prognosis is guarded
[2021-10-03] MEDS: amLODIPine 5 MG TAB PO SCH (04:42)
[2021-10-03] MEDS: ATORVASTATIN 10 MG TAB PO SCH (08:02)
[2021-10-03] MEDS: CHOLECALCIFEROL 25 MCG (1000 IU) TABLET PO SCH (08:02)
[2021-10-03] MEDS: FAMOTIDINE 20 MG TAB PO SCH ×2 (08:02→19:56)
[2021-10-03] MEDS: CYANOCOBALAMIN 1,000 MCG/ML 1 ML VIAL IM SCH (08:03)
[2021-10-03] MEDS: HEPARIN SODIUM,PORCINE/PF 5,000 UNIT/0.5 ML SYRINGE SQ SCH ×2 (08:03→19:57)
[2021-10-03] MEDS: FOLIC ACID 1 MG TAB PO SCH (08:03)
[2021-10-03 09:28] LABS: Anisocytosis Slight; HGB 7.8 gm/dL (13.0-17.5); Hypochromasia Marked; MCH 29.5 pg (25.0-35.0); MCHC 30.2 g/dL (31.0-37.0); MCV 97.6 fL (80.0-100.0); Macrocytosis Slight; Mean Platelet Volume 7.7; Poikilocytosis Slight; RBC 2.66 m/uL (4.30-5.90)
--- NOTE | 2021-10-03 09:28 | P.PN ---
Subjective Progress Note Date: 10/03/21 Principal diagnosis: Anemia Patient doing well today. Morning labs are pending. Denies rectal bleeding or melena. Objective - Vital Signs Vital signs: Vital Signs Temp 98.3 F 10/03/21 04:37 Pulse 65 10/03/21 07:46 Resp 18 10/03/21 04:37 BP 169/75 10/03/21 07:46 Pulse Ox 93 L 10/03/21 04:37 FiO2 Intake & Output 10/02/21 10/03/21 10/03/21 18:59 06:59 18:59 Intake Total 236 600 Balance 236 600 Intake: Oral 236 600 Other: Voiding Method Toilet # Voids 3 - Exam Abdomen: Soft, nontender, nondistended - Labs CBC & Chem 7: 10/02/21 05:49 10/02/21 05:49 Labs: Abnormal Lab Results - Last 24 Hours (Table) 10/01/21 10/02/21 10/02/21 Range/Units 09:07 05:49 05:49 WBC 1.81 L (4.50-10.00) X 10*3/uL RBC 2.48 L (4.40-5.60) X 10*6/uL Hgb 7.1 L (13.0-17.0) g/dL Hct 23.5 L (39.6-50.0) % MCHC 30.2 L (32.0-37.0) g/dL RDW 20.6 H (11.5-14.5) % Absolute Nucleated RBC 0.08 H (0.00-0.00) X 10*3/uL Neutrophils # 0.08 L* (1.80-7.70) X 10*3/uL NRBC/100 WBC Diff 4.4 H (0.0-0.0) /100 WBCS Anion Gap 8.30 L (10.00-18.00) mmol/L Calcium 7.4 L (8.7-10.3) mg/dL Total Bilirubin <0.15 L (0.30-1.20) mg/dL Alkaline Phosphatase 186 H (41-126) U/L Total Protein 4.0 L (6.2-8.2) g/dL Albumin 1.9 L (3.8-4.9) g/dL Albumin (PEP) 1.61 L (3.80-4.90) g/dL Albumin/Globulin Ratio 0.90 L (1.60-3.17) g/dL Gamma Globulins 0.65 L (0.70-1.50) g/dL PTH Intact (14.0-72.0) pg/mL Free [place] LC, Quant 14.10 H (0.33-1.94) mg/dL Free Lambda LC, Quant 5.71 H (0.57-2.63) mg/dL 10/02/21 Range/Units 10:44 WBC (4.50-10.00) X 10*3/uL RBC (4.40-5.60) X 10*6/uL Hgb (13.0-17.0) g/dL Hct (39.6-50.0) % MCHC (32.0-37.0) g/dL RDW (11.5-14.5) % Absolute Nucleated RBC (0.00-0.00) X 10*3/uL Neutrophils # (1.80-7.70) X 10*3/uL NRBC/100 WBC Diff (0.0-0.0) /100 WBCS Anion Gap (10.00-18.00) mmol/L Calcium (8.7-10.3) mg/dL Total Bilirubin (0.30-1.20) mg/dL Alkaline Phosphatase (41-126) U/L Total Protein (6.2-8.2) g/dL Albumin (3.8-4.9) g/dL Albumin (PEP) (3.80-4.90) g/dL Albumin/Globulin Ratio (1.60-3.17) g/dL Gamma Globulins (0.70-1.50) g/dL PTH Intact 74.4 H (14.0-72.0) pg/mL Free [place] LC, Quant (0.33-1.94) mg/dL Free Lambda LC, Quant (0.57-2.63) mg/dL Microbiology - Last 24 Hours (Table) 09/30/21 14:58 Blood Culture - Preliminary Blood No Growth after 48 hours 09/30/21 15:26 Blood Culture - Preliminary Blood No Growth after 48 hours Assessment and Plan (1) Anemia Narrative/Plan: Patient with ongoing anemia. No bleeding currently. EGD scheduled for Tuesday. Continue diet as tolerated. Current Visit: Yes Status: Acute Code(s): D64.9 - ANEMIA, UNSPECIFIED SNOMED Code(s): 327863779
--- NOTE | 2021-10-03 09:31 | P.PN ---
Subjective Progress Note Date: 10/03/21 Principal diagnosis: Cytopenias Bone Marrow Biopsy scheduled next week as well as EGD prolonged marked neutropenia Objective - Vital Signs Vital signs: Vital Signs Temp 98.3 F 10/03/21 04:37 Pulse 65 10/03/21 07:46 Resp 18 10/03/21 04:37 BP 169/75 10/03/21 07:46 Pulse Ox 93 L 10/03/21 04:37 FiO2 Intake & Output 10/02/21 10/03/21 10/03/21 18:59 06:59 18:59 Intake Total 236 600 Balance 236 600 Intake: Oral 236 600 Other: Voiding Method Toilet # Voids 3 - Exam - Constitutional General appearance: cooperative - EENT Eyes: EOMI ENT: NA/AT - Neck Neck: normal ROM - Respiratory Respiratory: bilateral: diminished - Cardiovascular Rhythm: regularly irregular - Gastrointestinal General gastrointestinal: soft, Distended - Integumentary Integumentary: pale BLE Edema - Neurologic Neurologic: CNII-XII intact - Musculoskeletal Musculoskeletal: generalized weakness - Psychiatric Psychiatric: A&O x's 3, appropriate affect - Labs CBC & Chem 7: 10/03/21 08:28 10/03/21 08:28 Labs: Abnormal Lab Results - Last 24 Hours (Table) 10/01/21 10/02/21 10/02/21 Range/Units 09:07 05:49 05:49 WBC 1.81 L (4.50-10.00) X 10*3/uL RBC 2.48 L (4.40-5.60) X 10*6/uL Hgb 7.1 L (13.0-17.0) g/dL Hct 23.5 L (39.6-50.0) % MCHC 30.2 L (32.0-37.0) g/dL RDW 20.6 H (11.5-14.5) % Absolute Nucleated RBC 0.08 H (0.00-0.00) X 10*3/uL Neutrophils # 0.08 L* (1.80-7.70) X 10*3/uL NRBC/100 WBC Diff 4.4 H (0.0-0.0) /100 WBCS Anion Gap 8.30 L (10.00-18.00) mmol/L Calcium 7.4 L (8.7-10.3) mg/dL Total Bilirubin <0.15 L (0.30-1.20) mg/dL Alkaline Phosphatase 186 H (41-126) U/L Total Protein 4.0 L (6.2-8.2) g/dL Albumin 1.9 L (3.8-4.9) g/dL Albumin (PEP) 1.61 L (3.80-4.90) g/dL Albumin/Globulin Ratio 0.90 L (1.60-3.17) g/dL Gamma Globulins 0.65 L (0.70-1.50) g/dL PTH Intact (14.0-72.0) pg/mL Free [place] LC, Quant 14.10 H (0.33-1.94) mg/dL Free Lambda LC, Quant 5.71 H (0.57-2.63) mg/dL 10/02/21 Range/Units 10:44 WBC (4.50-10.00) X 10*3/uL RBC (4.40-5.60) X 10*6/uL Hgb (13.0-17.0) g/dL Hct (39.6-50.0) % MCHC (32.0-37.0) g/dL RDW (11.5-14.5) % Absolute Nucleated RBC (0.00-0.00) X 10*3/uL Neutrophils # (1.80-7.70) X 10*3/uL NRBC/100 WBC Diff (0.0-0.0) /100 WBCS Anion Gap (10.00-18.00) mmol/L Calcium (8.7-10.3) mg/dL Total Bilirubin (0.30-1.20) mg/dL Alkaline Phosphatase (41-126) U/L Total Protein (6.2-8.2) g/dL Albumin (3.8-4.9) g/dL Albumin (PEP) (3.80-4.90) g/dL Albumin/Globulin Ratio (1.60-3.17) g/dL Gamma Globulins (0.70-1.50) g/dL PTH Intact 74.4 H (14.0-72.0) pg/mL Free [place] LC, Quant (0.33-1.94) mg/dL Free Lambda LC, Quant (0.57-2.63) mg/dL Microbiology - Last 24 Hours (Table) 09/30/21 14:58 Blood Culture - Preliminary Blood No Growth after 48 hours 09/30/21 15:26 Blood Culture - Preliminary Blood No Growth after 48 hours Assessment and Plan (1) Thrombocytosis Current Visit: Yes Status: Acute Code(s): D75.839 - THROMBOCYTOSIS, UNSPECIFIED SNOMED Code(s): 6869529 (2) Anemia Narrative/Plan: Full work-up ordered Status post Colonoscopy in August. Current Visit: Yes Status: Acute Code(s): D64.9 - ANEMIA, UNSPECIFIED SNOMED Code(s): 934434592 (3) Leukopenia Narrative/Plan: Unclear etiology, evidence of neutropenia Full inflammatory work-up ordered along with infectious work-up Per radiology report no abnormalities seen in liver, may require a more focused exam to truly rule out however noted deficiencies that may be underlying factors to leukopenia and anemia have been identified. Folate and B12 are markedly low. Further evaluation for pernicious anemia ordered. Patient also has a known history and recent use of daily/excessive alcohol use, which may be related to nutritional deficiencies. We have also asked surgery to perform EGD, patient states has only had colonoscopy. Immunoglobulins are decreased IgG and Igm. Underlying viral infections HIV, Hepatitis, EBV would also be considered in differential. Await CBC today Current Visit: Yes Status: Acute Code(s): D72.819 - DECREASED WHITE BLOOD CELL COUNT, UNSPECIFIED SNOMED Code(s): 16907503 (4) Neutropenic Current Visit: Yes Status: Acute Code(s): D70.9 - NEUTROPENIA, UNSPECIFIED SNOMED Code(s): 763030224 Plan: History of ETOH abuse and daily use, Daily TObacco 1-2 packs, possible underlying liver disease. Abdominal imaging ordering and bicytopenia work-up CT Negative B12, Folic acid and Vitamin D3 supplements ordered Pernicious anemia work-up pending EGD Await Echo and Bone marrow biopsy - Tuesday
[2021-10-03 09:54] LABS: ALT 30 U/L (4-49); AST 38 U/L (17-59); African American GFR (CKD) >90 (>60 ml/min/1.73 sqM); Albumin/Globulin Ratio 0.7; Alkaline Phosphatase 217 U/L (38-126); Anion Gap 0 mmol/L; Blood Urea Nitrogen 15 mg/dL (9-20); Calcium 7.3 mg/dL (8.4-10.2); Carbon Dioxide 30 mmol/L (22-30); Chloride 103 mmol/L (98-107); Globulin 2.7 g/dL; Glucose 83 mg/dL (74-99); LDH 768 U/L (313-618); Magnesium 2.2 mg/dL (1.6-2.3); Non-African American GFR(CKD) >90 (>60 ml/min/1.73 sqM); Potassium 4.4 mmol/L (3.5-5.1); Sodium 133 mmol/L (137-145); Total Bilirubin 0.1 mg/dL (0.2-1.3); Total Protein 4.7 g/dL (6.3-8.2)
[2021-10-03 10:50] LABS: Partial Thromboplastin Time 25.6 sec (22.0-30.0)
[2021-10-03 12:27] LABS: Neutrophils % (M) 2 %
[2021-10-03 12:47] LABS: Basophils # (M) 0.02 k/uL (0-0.2); Neutrophils # (M) 0.04 k/uL (1.3-7.7); Nucleated Red Blood Cells 3 /100 WBC (0-0); Total Cells Counted 200
[2021-10-03 12:48] LABS: Eosinophils # (M) 0.17 k/uL (0-0.7); Lymphocytes # (M) 1.41 k/uL (1.0-4.8); WBC 2.1 k/uL (3.8-10.6)
--- NOTE | 2021-10-03 14:37 | US ---
EXAMINATION TYPE: US abdomen complete DATE OF EXAM: 10/03/2021 COMPARISON: CT 10/01/2021 CLINICAL HISTORY: Assess liver and spleen. leukopenia EXAM MEASUREMENTS: Liver Length: 11.8 cm Gallbladder Wall: 0.3 cm CBD: 0.5 cm Spleen: 10.9 cm Right Kidney: 12.9 x 5.4 x 6.3 cm Left Kidney: 12.9 x 6.0 x 6.0 cm Pancreas: not well visualized due to midline bowel gas Liver: wnl Gallbladder: No stones seen Evidence for sonographic Panchal's sign: No CBD: wnl Spleen: wnl Right Kidney: No hydronephrosis or masses seen Left Kidney: No hydronephrosis or masses seen Upper IVC: wnl Abd Aorta: bifurcation not visualized due to bowel gas, otherwise wnl. No evidence of ascites. IMPRESSION: Normal complete abdominal sonogram. No gallstones or dilated ducts.
[2021-10-03 14:56] LABS: INR 0.9 (<1.2); Prothrombin Time 10.2 sec (9.0-12.0)
[2021-10-03 16:38] LABS: Methylmalonic Acid 0.47 umol/L (<0.40)
[2021-10-03] MEDS: ASPIRIN 81 MG PO SCH (19:56)
[2021-10-03] MEDS: ZINC SULFATE 220 MG CAP PO SCH (19:56)
[2021-10-03] MEDS: FUROSEMIDE 20 MG TAB PO SCH (19:58)
--- NOTE | 2021-10-03 20:12 | P.PN ---
Subjective Progress Note Date: 10/03/21 56 years old male with past medical history of GERD/Reflux, Hyperlipidemia, Hypertension, Osteoarthritis ,Recent rectal bleed/colonoscopy with polypectomy, anemia, L lower extremity edema since July 2021, murmur, 03/2021 pt had covid. Patient presents because of worsening swelling of the legs and hands . Patient states that he is having leg swelling and both sites for 3 weeks, he wants to see his PCP who prescribed him water pills which started to put him in the beginning but now he stopped going to the bathroom and his leg swelling got worse over the last 2 weeks. Recently also I noticed that his both hands. That's wall into but to a lesser degree. He's competitive from little shortness of breath on exertion but no chest pain. No coughing. No headache or weakness or numbness. No urinary complaints like urgency or dysuria. No vomiting or diarrhea or abdominal pain. He used to smoke and quit a few weeks ago. No alcohol or illicit drugs. on admission patient is afebrile, heart rate about 54. Blood pressure 123/64. No shown leukopenia of 2 with anemia with hemoglobin 7.9, platelet count is elevated 16. Also patient has neutropenia as 0.1. INR 0.9. BNP is unremarkable with creatinine 1.0. Sodium 132. Never enzymes not elevated. ProBNP is 442 on troponin is negative. EKG does show sinus bradycardia at 58 with right bundle branch block and QTC 482 Chest x-ray: Chronic changes without acute pulmonary process. No significant change from 10/03/2021 Patient seen and evaluated resting comfortably in bed; no specific complaints Vital signs are stable with temperature 98.3, pulse 65, respiration 18 and blood pressure 169/75 Bone Marrow Biopsy scheduled next week as well as EGD prolonged marked neutropenia Objective - Vital Signs Vital signs: Vital Signs Temp 97.8 F 10/03/21 11:14 Pulse 52 L 10/03/21 11:14 Resp 15 10/03/21 11:14 BP 121/50 10/03/21 11:14 Pulse Ox 95 10/03/21 11:14 FiO2 Intake & Output 10/02/21 10/03/21 10/03/21 18:59 06:59 18:59 Intake Total 236 600 Balance 236 600 Intake: Oral 236 600 Other: Voiding Method Toilet Toilet # Voids 3 - Exam GENERAL: The patient is alert and oriented x3, not in any acute distress. Well developed, well nourished. HEENT: Pupils are round and equally reacting to light. EOMI. No scleral icterus. No conjunctival pallor. Normocephalic, atraumatic. No pharyngeal erythema. No thyromegaly. CARDIOVASCULAR: S1 and S2 present. No murmurs, rubs, or gallops. PULMONARY: Chest is clear to auscultation, no wheezing or crackles. ABDOMEN: Soft, nontender, nondistended, normoactive bowel sounds. No palpable organomegaly. MUSCULOSKELETAL: No joint swelling or deformity. -EXTREMITIES: No cyanosis, clubbing, 2+ bilateral pitting leg edema, bilateral mild and edema NEUROLOGICAL: Gross neurological examination did not reveal any focal deficits. SKIN: No rashes. no petechiae. - Labs CBC & Chem 7: 10/03/21 08:28 10/03/21 08:28 Labs: Abnormal Lab Results - Last 24 Hours (Table) 10/01/21 10/02/21 10/03/21 Range/Units 09:07 10:44 08:28 WBC 2.2 L (3.8-10.6) k/uL RBC 2.66 L (4.30-5.90) m/uL Hgb 7.8 L (13.0-17.5) gm/dL Hct 26.0 L (39.0-53.0) % MCHC 30.2 L (31.0-37.0) g/dL RDW 20.0 H (11.5-15.5) % Fibrinogen (200-500) mg/dL D-Dimer (<0.60) mg/L FEU Sodium (137-145) mmol/L Calcium (8.4-10.2) mg/dL Total Bilirubin (0.2-1.3) mg/dL Alkaline Phosphatase (38-126) U/L Lactate Dehydrogenase (313-618) U/L Total Protein (6.3-8.2) g/dL Albumin (3.5-5.0) g/dL Albumin (PEP) 1.61 L (3.80-4.90) g/dL Gamma Globulins 0.65 L (0.70-1.50) g/dL PTH Intact 74.4 H (14.0-72.0) pg/mL Free [place] LC, Quant 14.10 H (0.33-1.94) mg/dL Free Lambda LC, Quant 5.71 H (0.57-2.63) mg/dL 10/03/21 10/03/21 Range/Units 08:28 08:28 WBC (3.8-10.6) k/uL RBC (4.30-5.90) m/uL Hgb (13.0-17.5) gm/dL Hct (39.0-53.0) % MCHC (31.0-37.0) g/dL RDW (11.5-15.5) % Fibrinogen 859 H (200-500) mg/dL D-Dimer 2.92 H (<0.60) mg/L FEU Sodium 133 L (137-145) mmol/L Calcium 7.3 L (8.4-10.2) mg/dL Total Bilirubin 0.1 L (0.2-1.3) mg/dL Alkaline Phosphatase 217 H (38-126) U/L Lactate Dehydrogenase 768 H (313-618) U/L Total Protein 4.7 L (6.3-8.2) g/dL Albumin 2.0 L (3.5-5.0) g/dL Albumin (PEP) (3.80-4.90) g/dL Gamma Globulins (0.70-1.50) g/dL PTH Intact (14.0-72.0) pg/mL Free [place] LC, Quant (0.33-1.94) mg/dL Free Lambda LC, Quant (0.57-2.63) mg/dL Microbiology - Last 24 Hours (Table) 09/30/21 14:58 Blood Culture - Preliminary Blood No Growth after 48 hours 09/30/21 15:26 Blood Culture - Preliminary Blood No Growth after 48 hours Assessment and Plan Assessment: Leukopenia and neutropenia Bilateral extremity swelling, associated with hypoalbuminemia. sinus bradycardia, chronic and asymptomatic associated with right bundle branch block Hypertension Hyperlipidemia History of osteoarthritis History of GERD Plan: This is a pleasant 56 years old male who presents with extremity swelling and le ukopenia Check urine analysis Hematology/oncology consult Check lower extremity ultrasound Continue with serology workup requested by hematology/oncology team labs and medication were reviewed.. Continue same treatment. Continue with symptomatic treatment. Resume home medication. Monitor lytes and vitals. DVT and GI prophylaxis. Further recommendationsas per clinical course of the patient DVT prophylaxis: Subcutaneous heparin GI Prophylaxis: Pepcid PT/OT: Pending Prognosis is guarded
[2021-10-04] MEDS: CHOLECALCIFEROL 25 MCG (1000 IU) TABLET PO SCH (08:13)
[2021-10-04] MEDS: ATORVASTATIN 10 MG TAB PO SCH (08:13)
[2021-10-04] MEDS: amLODIPine 5 MG TAB PO SCH (08:13)
[2021-10-04] MEDS: FAMOTIDINE 20 MG TAB PO SCH ×2 (08:14→21:01)
[2021-10-04] MEDS: CYANOCOBALAMIN 1,000 MCG/ML 1 ML VIAL IM SCH (08:14)
[2021-10-04] MEDS: FOLIC ACID 1 MG TAB PO SCH (08:14)
[2021-10-04] MEDS: HEPARIN SODIUM,PORCINE/PF 5,000 UNIT/0.5 ML SYRINGE SQ SCH (08:14)
--- NOTE | 2021-10-04 09:49 | P.PN ---
Subjective Progress Note Date: 10/04/21 Principal diagnosis: Anemia Patient doing well today. No new complaints. No rectal bleeding or melena. Objective - Vital Signs Vital signs: Vital Signs Temp 97.9 F 10/04/21 04:17 Pulse 65 10/04/21 08:12 Resp 18 10/04/21 04:17 BP 159/73 10/04/21 08:12 Pulse Ox 95 10/04/21 08:12 FiO2 Intake & Output 10/03/21 10/04/21 10/04/21 18:59 06:59 18:59 Intake Total 2260 600 180 Balance 2260 600 180 Intake: Oral 2260 600 180 Other: Voiding Method Toilet Toilet # Voids 4 3 # Bowel Movements 1 - Exam Abdomen: Soft, nontender, nondistended - Labs CBC & Chem 7: 10/03/21 08:28 10/03/21 08:28 Labs: Abnormal Lab Results - Last 24 Hours (Table) 10/01/21 10/03/21 10/03/21 Range/Units 09:07 08:28 08:28 WBC 2.1 L (3.8-10.6) k/uL Neutrophils # (Manual) 0.04 L* (1.3-7.7) k/uL Nucleated RBCs 3 H (0-0) /100 WBC Fibrinogen (200-500) mg/dL D-Dimer (<0.60) mg/L FEU Sodium 133 L (137-145) mmol/L Calcium 7.3 L (8.4-10.2) mg/dL Total Bilirubin 0.1 L (0.2-1.3) mg/dL Alkaline Phosphatase 217 H (38-126) U/L Lactate Dehydrogenase 768 H (313-618) U/L Total Protein 4.7 L (6.3-8.2) g/dL Albumin 2.0 L (3.5-5.0) g/dL Methylmalonic Acid 0.47 H (<0.40) umol/L 10/03/21 Range/Units 08:28 WBC (3.8-10.6) k/uL Neutrophils # (Manual) (1.3-7.7) k/uL Nucleated RBCs (0-0) /100 WBC Fibrinogen 859 H (200-500) mg/dL D-Dimer 2.92 H (<0.60) mg/L FEU Sodium (137-145) mmol/L Calcium (8.4-10.2) mg/dL Total Bilirubin (0.2-1.3) mg/dL Alkaline Phosphatase (38-126) U/L Lactate Dehydrogenase (313-618) U/L Total Protein (6.3-8.2) g/dL Albumin (3.5-5.0) g/dL Methylmalonic Acid (<0.40) umol/L Microbiology - Last 24 Hours (Table) 09/30/21 14:58 Blood Culture - Preliminary Blood No Growth after 72 hours 09/30/21 15:26 Blood Culture - Preliminary Blood No Growth after 72 hours Assessment and Plan (1) Anemia Narrative/Plan: Continue diet for today. Nothing to eat or drink after midnight. EGD scheduled for tomorrow. Current Visit: Yes Status: Acute Code(s): D64.9 - ANEMIA, UNSPECIFIED SNOMED Code(s): 820608247
[2021-10-04 10:06] LABS: HCT 23.4 % (39.6-50.0); HGB 6.8 g/dL (13.0-17.0); MCH 28.2 pg (27.0-32.0); MCHC 29.1 g/dL (32.0-37.0); MCV 97.1 fL (80.0-97.0); Mean Platelet Volume 9.9 fL (9.5-12.2); NRBC Per 100 WBC 2.2 /100 WBCS (0.0-0.0); Platelet Count 365 X 10*3/uL (140-440); RBC 2.41 X 10*6/uL (4.40-5.60); RDW 20.4 % (11.5-14.5); WBC 2.29 X 10*3/uL (4.50-10.00)
[2021-10-04 12:05] LABS: African American GFR (CKD) 109.5 (60.0-200.0); Anion Gap 6.4 mmol/L (10.00-18.00); BUN/Creat Ratio 14.25 Ratio (12.00-20.00); Blood Urea Nitrogen 12.6 mg/dL (9.0-27.0); Calcium 7.3 mg/dL (8.7-10.3); Carbon Dioxide 26.8 mmol/L (20.0-27.5); Non-African American GFR(CKD) 94.5 (60.0-200.0); Potassium 4.5 mmol/L (3.5-5.5)
[2021-10-04] MEDS: FUROSEMIDE 20 MG TAB PO SCH (21:01)
[2021-10-04] MEDS: ZINC SULFATE 220 MG CAP PO SCH (21:01)
[2021-10-05 08:08] LABS: INR 0.9 (<1.2); Partial Thromboplastin Time 25.4 sec (22.0-30.0); Prothrombin Time 10.1 sec (9.0-12.0)
[2021-10-05] MEDS: ATORVASTATIN 10 MG TAB PO SCH (08:50)
[2021-10-05] MEDS: amLODIPine 5 MG TAB PO SCH (08:50)
[2021-10-05] MEDS: FOLIC ACID 1 MG TAB PO SCH (08:50)
[2021-10-05] MEDS: CHOLECALCIFEROL 25 MCG (1000 IU) TABLET PO SCH (08:50)
[2021-10-05] MEDS: FAMOTIDINE 20 MG TAB PO SCH ×2 (08:50→20:56)
[2021-10-05 10:51] LABS: ALT 33 U/L (10-49); AST 37 U/L (14-35); African American GFR (CKD) 116.8 (60.0-200.0); Albumin 2.1 g/dL (3.8-4.9); Albumin/Globulin Ratio 0.91 (1.60-3.17); Alkaline Phosphatase 206 U/L (41-126); Blood Urea Nitrogen 13.7 mg/dL (9.0-27.0); Calcium 7.8 mg/dL (8.7-10.3); Carbon Dioxide 26.9 mmol/L (20.0-27.5); Chloride 102 mmol/L (96-109); Globulin 2.3 g/dL (1.6-3.3); Glucose 81 mg/dL (70-110); Magnesium 1.9 mg/dL (1.5-2.4); Non-African American GFR(CKD) 100.7 (60.0-200.0); Potassium 5.1 mmol/L (3.5-5.5); Sodium 135 mmol/L (135-145); Total Bilirubin <0.15 mg/dL (0.30-1.20); Total Protein 4.4 g/dL (6.2-8.2)
[2021-10-05 11:05] LABS: Anisocytosis Slight; HCT 29.8 % (39.0-53.0); HGB 9.2 gm/dL (13.0-17.5); Hypochromasia Marked; MCH 29.8 pg (25.0-35.0); MCHC 30.9 g/dL (31.0-37.0); MCV 96.2 fL (80.0-100.0); Macrocytosis Slight; Mean Platelet Volume 7.8; Poikilocytosis Moderate; RDW 19.4 % (11.5-15.5); WBC 1.7 k/uL (3.8-10.6)
[2021-10-05 11:08] LABS: Basophils # (A) 0.03 X 10*3/uL (0.00-0.10); Basophils % (A) 1.4 %; Eosinophils # (A) 0.16 X 10*3/uL (0.04-0.35); Eosinophils % (A) 7.6 %; HCT 28.7 % (39.6-50.0); HGB 8.6 g/dL (13.0-17.0); Immature Grans, Automated 0 %; Lymphocytes % (A) 61.6 %; MCH 28.7 pg (27.0-32.0); MCV 95.7 fL (80.0-97.0); Mean Platelet Volume 9.5 fL (9.5-12.2); Monocytes # (A) 0.54 X 10*3/uL (0.20-1.00); Monocytes % (A) 25.6 %; NRBC Per 100 WBC 1.9 /100 WBCS (0.0-0.0); Neutrophils # (A) 0.08 X 10*3/uL (1.80-7.70); Neutrophils % (A) 3.8 %; Platelet Count 399 X 10*3/uL (140-440); RDW 19.7 % (11.5-14.5); WBC 2.11 X 10*3/uL (4.50-10.00)
[2021-10-05] MEDS ORDERED: SODIUM CHLORIDE 0.9% 500 ML 500 ML IV ONE (11:08)
--- NOTE | 2021-10-05 11:19 | P.OP ---
Date of Procedure: 10/05/21 Preoperative Diagnosis: Anemia Postoperative Diagnosis: GERD Sliding hiatal hernia Procedure(s) Performed: EGD Anesthesia: MAC Surgeon: Joel Rodriguez Pathology: other (Esophagus) Condition: stable Disposition: PACU Description of Procedure: The patient's placed on the endoscopy table in the lateral position. He received IV sedation. The gastroscope was oropharynx past esophagus and stomach. Scope then placed through the pylorus. The first and second portion of duodenum appeared normal. Scope was then brought back the antrum and this appeared minimally inflamed. The scope was unretroflexed and remainder the stomach appeared normal. There was a sliding hiatal hernia. The GE junction appeared to be at 38 cm. The distal esophagus appeared inflamed. A biopsies performed. The proximal esophagus appeared normal. Scope withdrawn for patient. There is no incentive any GI bleed. Presumed patient may have had anemia related to esophagitis.
[2021-10-05] MEDS ORDERED: PROPOFOL 10 MG/ML 20 ML VIAL IV ONE (11:26)
[2021-10-05] MEDS ORDERED: LIDOCAINE 2% INJ 20 MG/ML (2 ML VIAL) ONE (11:26)
[2021-10-05 12:08] LABS: Eosinophils # (M) 0.12 k/uL (0-0.7); Lymphocytes # (M) 1.11 k/uL (1.0-4.8); Monocytes # (M) 0.32 k/uL (0-1.0); Neutrophils # (M) 0.15 k/uL (1.3-7.7); Neutrophils % (M) 9 %; Nucleated Red Blood Cells 0 /100 WBC (0-0); Total Cells Counted 100
[2021-10-05 12:10] LABS: Platelet Count 572 k/uL (150-450)
[2021-10-05 13:14] LABS: APTT 49 Sec(s) (<43); APTT 1:1 Mix 40 Sec(s) (<43); Dilute Russell Viper Venom 33 Sec(s) (<44)
--- NOTE | 2021-10-05 13:31 | P.PN ---
Subjective Progress Note Date: 10/05/21 This is a 56-year-old gentleman presented to the hospital with worsening lower extremity edema. 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 Outpatient patient had been working with his PCP, Dr. Ulrich regarding workup of anemia/neutropenia. Anemia, without signs or symptoms of bleeding reported. Denies chest pain, palpitations or shortness of breath. Denies lightheadedness, dizziness or focal deficits. Denies nausea vomiting or diarrhea. Denies abdominal tenderness. Evaluated by surgery and hematology/oncology with workup in progress. EGD scheduled for today, bone marrow biopsy tomorrow. WBC 2.11, hemoglobin 8.6, platelets 399, renal function stable, T bili less than 0.15 AST 37, alk phos 206. LDH 768. Objective - Vital Signs Vital signs: Vital Signs Temp 97.9 F 10/05/21 11:57 Pulse 56 L 10/05/21 12:15 Resp 18 10/05/21 11:57 BP 165/76 10/05/21 12:15 Pulse Ox 94 L 10/05/21 12:15 FiO2 Intake & Output 10/04/21 10/05/21 10/05/21 18:59 06:59 18:59 Intake Total 670 100 Balance 670 100 Intake: IV 100 Oral 360 Blood Product 310 Rc Cpda-1 Unit 310 [id number] Other: Voiding Method Toilet Toilet Toilet # Voids 6 1 # Bowel Movements 6 0 - Exam - Exam GENERAL: Sitting up in bed, alert and oriented x3, no acute distress. HEENT: Pupils are round and equally reacting to light. EOMI. No scleral icterus. No conjunctival pallor. Normocephalic, atraumatic. CARDIOVASCULAR: S1 and S2 present. No murmurs, rubs, or gallops. PULMONARY: Chest is clear to auscultation, no wheezing or crackles. ABDOMEN: Soft, nontender, nondistended, normoactive bowel sounds. No palpable organomegaly. EXTREMITIES: No cyanosis, clubbing, bilateral lower extremity pitting edema NEUROLOGICAL: Cranial nerves II-12 grossly intact, no focal deficits. SKIN: No rashes. Warm and dry. - Labs CBC & Chem 7: 10/05/21 10:47 10/05/21 06:36 Labs: Abnormal Lab Results - Last 24 Hours (Table) 07/10/22 07/11/22 07/11/22 Range/Units 10:33 06:36 06:36 WBC 2.11 L (4.50-10.00) X 10*3/uL RBC 3.00 L (4.40-5.60) X 10*6/uL Hgb 8.6 L (13.0-17.0) g/dL Hct 28.7 L (39.6-50.0) % MCHC 30.0 L (32.0-37.0) g/dL RDW 19.7 H (11.5-14.5) % Plt Count (150-450) k/uL Absolute Nucleated RBC 0.04 H (0.00-0.00) X 10*3/uL Neutrophils # 0.08 L* (1.80-7.70) X 10*3/uL Neutrophils # (Manual) (1.3-7.7) k/uL NRBC/100 WBC Diff 1.9 H (0.0-0.0) /100 WBCS Anion Gap 6.20 L (10.00-18.00) mmol/L Calcium 7.8 L (8.7-10.3) mg/dL Total Bilirubin <0.15 L (0.30-1.20) mg/dL AST 37 H (14-35) U/L Alkaline Phosphatase 206 H (41-126) U/L Total Protein 4.4 L (6.2-8.2) g/dL Albumin 2.1 L (3.8-4.9) g/dL Albumin/Globulin Ratio 0.91 L (1.60-3.17) g/dL Crossmatch See Detail 10/05/21 Range/Units 10:47 WBC 1.7 L (4.50-10.00) X 10*3/uL RBC 3.10 L (4.40-5.60) X 10*6/uL Hgb 9.2 L (13.0-17.0) g/dL Hct 29.8 L (39.6-50.0) % MCHC 30.9 L (32.0-37.0) g/dL RDW 19.4 H (11.5-14.5) % Plt Count 572 H (150-450) k/uL Absolute Nucleated RBC (0.00-0.00) X 10*3/uL Neutrophils # (1.80-7.70) X 10*3/uL Neutrophils # (Manual) 0.15 L* (1.3-7.7) k/uL NRBC/100 WBC Diff (0.0-0.0) /100 WBCS Anion Gap (10.00-18.00) mmol/L Calcium (8.7-10.3) mg/dL Total Bilirubin (0.30-1.20) mg/dL AST (14-35) U/L Alkaline Phosphatase (41-126) U/L Total Protein (6.2-8.2) g/dL Albumin (3.8-4.9) g/dL Albumin/Globulin Ratio (1.60-3.17) g/dL Crossmatch Microbiology - Last 24 Hours (Table) 09/30/21 14:58 Blood Culture - Preliminary Blood No Growth after 96 hours 09/30/21 15:26 Blood Culture - Preliminary Blood No Growth after 96 hours Assessment and Plan Assessment: Anemia, Leukopenia ,neutropenia, workup in progress Thrombocytosis Bilateral extremity swelling hypoalbuminemia. sinus bradycardia, chronic,asymptomatic associated with right bundle branch block Hypertension Hyperlipidemia osteoarthritis GERD History of alcohol use Nicotine dependence Plan: Continue on current medication regime ,monitoring and symptomatic treatment. Scheduled for EGD today, bone marrow biopsy tomorrow. Follow closely with hematology and surgery. The impression and plan of care has been dictated as directed. : I performed a history and examination of this patient, discussed the same with the dictator. I agree with the dictator's note ,documented as a scribe. Any additional findings or plans will be noted.
[2021-10-05 14:57] LABS: Cardiolipin Ab IgG Interp NEGATIVE (NEGATIVE); Cardiolipin Ab IgM Interp NEGATIVE (NEGATIVE); Cardiolipin IgA Antibody <2.0 U/mL; Cardiolipin IgM Antibody <1.5 U/mL
--- NOTE | 2021-10-05 14:58 | P.PN ---
Subjective Progress Note Date: 10/05/21 Principal diagnosis: Cytopenias Status POst EGD no active bleed, gastritis present. Awaiting Bone marrow biopsy, scheduled for tomorrow Objective - Vital Signs Vital signs: Vital Signs Temp 97.9 F 10/05/21 11:57 Pulse 56 L 10/05/21 12:15 Resp 18 10/05/21 11:57 BP 165/76 10/05/21 12:15 Pulse Ox 94 L 10/05/21 12:15 FiO2 Intake & Output 10/04/21 10/05/21 10/05/21 18:59 06:59 18:59 Intake Total 670 100 Balance 670 100 Intake: IV 100 Oral 360 Blood Product 310 Rc Cpda-1 Unit 310 [id number] Other: Voiding Method Toilet Toilet Toilet # Voids 6 1 # Bowel Movements 6 0 - Exam - Constitutional General appearance: cooperative - EENT Eyes: EOMI ENT: NA/AT - Neck Neck: normal ROM - Respiratory Respiratory: bilateral: diminished - Cardiovascular Rhythm: regularly irregular - Gastrointestinal General gastrointestinal: soft, Distended - Integumentary Integumentary: pale BLE Edema - Neurologic Neurologic: CNII-XII intact - Musculoskeletal Musculoskeletal: generalized weakness - Psychiatric Psychiatric: A&O x's 3, appropriate affect - Labs CBC & Chem 7: 10/05/21 10:47 10/05/21 06:36 Labs: Abnormal Lab Results - Last 24 Hours (Table) 10/04/21 10/05/21 10/05/21 Range/Units 10:33 06:36 06:36 WBC 2.11 L (4.50-10.00) X 10*3/uL RBC 3.00 L (4.40-5.60) X 10*6/uL Hgb 8.6 L (13.0-17.0) g/dL Hct 28.7 L (39.6-50.0) % MCHC 30.0 L (32.0-37.0) g/dL RDW 19.7 H (11.5-14.5) % Plt Count (150-450) k/uL Absolute Nucleated RBC 0.04 H (0.00-0.00) X 10*3/uL Neutrophils # 0.08 L* (1.80-7.70) X 10*3/uL Neutrophils # (Manual) (1.3-7.7) k/uL NRBC/100 WBC Diff 1.9 H (0.0-0.0) /100 WBCS Anion Gap 6.20 L (10.00-18.00) mmol/L Calcium 7.8 L (8.7-10.3) mg/dL Total Bilirubin <0.15 L (0.30-1.20) mg/dL AST 37 H (14-35) U/L Alkaline Phosphatase 206 H (41-126) U/L Total Protein 4.4 L (6.2-8.2) g/dL Albumin 2.1 L (3.8-4.9) g/dL Albumin/Globulin Ratio 0.91 L (1.60-3.17) g/dL Crossmatch See Detail 10/05/21 Range/Units 10:47 WBC 1.7 L (4.50-10.00) X 10*3/uL RBC 3.10 L (4.40-5.60) X 10*6/uL Hgb 9.2 L (13.0-17.0) g/dL Hct 29.8 L (39.6-50.0) % MCHC 30.9 L (32.0-37.0) g/dL RDW 19.4 H (11.5-14.5) % Plt Count 572 H (150-450) k/uL Absolute Nucleated RBC (0.00-0.00) X 10*3/uL Neutrophils # (1.80-7.70) X 10*3/uL Neutrophils # (Manual) 0.15 L* (1.3-7.7) k/uL NRBC/100 WBC Diff (0.0-0.0) /100 WBCS Anion Gap (10.00-18.00) mmol/L Calcium (8.7-10.3) mg/dL Total Bilirubin (0.30-1.20) mg/dL AST (14-35) U/L Alkaline Phosphatase (41-126) U/L Total Protein (6.2-8.2) g/dL Albumin (3.8-4.9) g/dL Albumin/Globulin Ratio (1.60-3.17) g/dL Crossmatch Microbiology - Last 24 Hours (Table) 09/30/21 14:58 Blood Culture - Preliminary Blood No Growth after 96 hours 09/30/21 15:26 Blood Culture - Preliminary Blood No Growth after 96 hours Assessment and Plan (1) Thrombocytosis Current Visit: Yes Status: Acute Code(s): D75.839 - THROMBOCYTOSIS, UNSPECIFIED SNOMED Code(s): 1357597 (2) Anemia Narrative/Plan: Full work-up ordered Status post Colonoscopy in August. EGD today Current Visit: Yes Status: Acute Code(s): D64.9 - ANEMIA, UNSPECIFIED SNOMED Code(s): 849239577 (3) Leukopenia Narrative/Plan: Unclear etiology, evidence of neutropenia Full inflammatory work-up ordered along with infectious work-up Per radiology report no abnormalities seen in liver, may require a more focused exam to truly rule out however noted deficiencies that may be underlying factors to leukopenia and anemia have been identified. Folate and B12 are markedly low. Further evaluation for pernicious anemia ordered. Patient also has a known history and recent use of daily/excessive alcohol use, which may be related to nutritional deficiencies. We have also asked surgery to perform EGD, patient states has only had colonoscopy. Immunoglobulins are decreased IgG and Igm. Underlying viral infections HIV, Hepatitis, EBV would also be considered in differential. Await CBC today Current Visit: Yes Status: Acute Code(s): D72.819 - DECREASED WHITE BLOOD CELL COUNT, UNSPECIFIED SNOMED Code(s): 14473452 (4) Neutropenic Narrative/Plan: Prolonged and severe therefore a need for Bone marrow eval Current Visit: Yes Status: Acute Code(s): D70.9 - NEUTROPENIA, UNSPECIFIED SNOMED Code(s): 566334613 Plan: History of ETOH abuse and daily use, Daily TObacco 1-2 packs, possible underlying liver disease. Abdominal imaging ordering and bicytopenia work-up CT Negative B12, Folic acid and Vitamin D3 supplements ordered Pernicious anemia work-up pending EGD today Await Echo and Bone marrow biopsy - Tuesday at Noon
[2021-10-05] MEDS: FUROSEMIDE 20 MG TAB PO SCH (20:56)
[2021-10-05] MEDS: ZINC SULFATE 220 MG CAP PO SCH (20:57)
[2021-10-06] MEDS: CHOLECALCIFEROL 25 MCG (1000 IU) TABLET PO SCH (08:17)
[2021-10-06] MEDS: amLODIPine 5 MG TAB PO SCH (08:17)
[2021-10-06] MEDS: ATORVASTATIN 10 MG TAB PO SCH (08:17)
[2021-10-06] MEDS: FOLIC ACID 1 MG TAB PO SCH (08:18)
[2021-10-06] MEDS: FAMOTIDINE 20 MG TAB PO SCH ×2 (08:18→20:46)
[2021-10-06 09:03] LABS: Anisocytosis Slight; HCT 28.4 % (39.0-53.0); HGB 8.7 gm/dL (13.0-17.5); Hypochromasia Marked; MCH 29.8 pg (25.0-35.0); MCHC 30.5 g/dL (31.0-37.0); MCV 97.6 fL (80.0-100.0); Macrocytosis Slight; Mean Platelet Volume 7.4; Platelet Count 681 k/uL (150-450); Poikilocytosis Slight; RBC 2.91 m/uL (4.30-5.90); RDW 19.9 % (11.5-15.5); Reticulocyte % 2.7 % (0.5-2.0)
[2021-10-06 11:00] LABS: Basophils # (M) 0.04 k/uL (0-0.2); Lymphocytes # (M) 1.24 k/uL (1.0-4.8); Monocytes # (M) 0.32 k/uL (0-1.0); Neutrophils % (M) 10 %; Nucleated Red Blood Cells 0 /100 WBC (0-0); Total Cells Counted 100
[2021-10-06] MEDS ORDERED: PROPOFOL 10 MG/ML 20 ML VIAL IV ONE (12:21)
[2021-10-06] MEDS ORDERED: LIDOCAINE 2% INJ 20 MG/ML (2 ML VIAL) ONE (12:21)
[2021-10-06] MEDS ORDERED: SODIUM CHLORIDE 0.9% 1,000 ML IV ONE (12:21)
[2021-10-06] MEDS ORDERED: LIDOCAINE 1% (10MG/ML) FOR IV START INTRADERMA PRN (12:45)
[2021-10-06] MEDS ORDERED: LACTATED RINGERS 1,000 ML IV SCH ×2 (12:45)
[2021-10-06] MEDS ORDERED: MORPHINE SULFATE 2 MG/ML SYRINGE IV PRN (12:45)
--- NOTE | 2021-10-06 14:14 | P.PN ---
Subjective Progress Note Date: 10/06/21 CHIEF COMPLAINT: Anemia HISTORY OF PRESENT ILLNESS: Patient status post EGD that demonstrated GERD and sliding hiatal hernia. No evidence of active bleed. Patient is scheduled for bone marrow biopsy today. Afebrile. WBC is 2 HCV 8.7 platelets 681 PHYSICAL EXAM: VITAL SIGNS: Reviewed. GENERAL: Well-developed in no acute distress. HEENT: No sclera icterus. Extraocular movements grossly intact. Moist buccal mucosa. Head is atraumatic, normocephalic. ABDOMEN: Soft. Nondistended. Nontender. NEUROLOGIC: Alert and oriented. Cranial nerves II through XII grossly intact. ASSESSMENT: 1. Anemia 2. Recent colonoscopy 09/24/2021 with colon polyps, diverticulosis and hemorrhoids 3. 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 Signing provider agrees with the documented findings, assessment, and plan of care. Objective - Vital Signs Vital signs: Vital Signs Temp 97.8 F 10/06/21 12:29 Pulse 55 L 10/06/21 12:29 Resp 18 10/06/21 12:29 BP 173/67 10/06/21 12:29 Pulse Ox 93 L 10/06/21 12:29 FiO2 Intake & Output 10/05/21 10/06/21 10/06/21 18:59 06:59 18:59 Intake Total 692 710 300 Balance 692 710 300 Intake: IV 100 300 Oral 592 710 Other: Voiding Method Toilet Toilet # Voids 1 - Labs CBC & Chem 7: 10/06/21 06:25 10/05/21 06:36 Labs: Abnormal Lab Results - Last 24 Hours (Table) 10/06/21 Range/Units 06:25 WBC 2.0 L (3.8-10.6) k/uL RBC 2.91 L (4.30-5.90) m/uL Hgb 8.7 L (13.0-17.5) gm/dL Hct 28.4 L (39.0-53.0) % MCHC 30.5 L (31.0-37.0) g/dL RDW 19.9 H (11.5-15.5) % Plt Count 681 H (150-450) k/uL Neutrophils # (Manual) 0.20 L* (1.3-7.7) k/uL Retic Count 2.7 H (0.5-2.0) % Microbiology - Last 24 Hours (Table) 09/30/21 15:26 Blood Culture - Preliminary Blood No Growth after 120 hours 09/30/21 14:58 Blood Culture - Preliminary Blood No Growth after 120 hours
[2021-10-06] MEDS: ACETAMINOPHEN TAB 500 MG TAB PO PRN ×2 (15:24→20:46)
--- NOTE | 2021-10-06 15:52 | PCN ---
PROCEDURE NOTE DATE OF PROCEDURE: 10/06/2021. PREOP DIAGNOSIS: Possible leukemia. POSTOP DIAGNOSIS: Possible leukemia. PROCEDURE: Bone marrow aspirate and biopsy. SITE: Right iliac crest. ANESTHESIA: Local with IV systemic sedation. DETAILS: Utilizing sterile technique, the skin overlying the right iliac crest was prepared with Betadine and alcohol. After adequate sterile draping, a size 11 4 inch Jamshidi needle was utilized to access the periosteum with ease. A total of 15 mL of aspirate as well as 4 cm bone core biopsies were obtained. The patient tolerated the procedure very well. There was no immediate procedure related complication. TOTAL BLOOD LOSS: Less than 1 mL. Results pending. MMODL / IJN: [id number] /
--- NOTE | 2021-10-06 17:51 | P.PN ---
Subjective Progress Note Date: 10/06/21 This is a 56-year-old gentleman presented to the hospital with worsening lower extremity edema. 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 Outpatient patient had been working with his PCP, Dr. Ulrich regarding workup of anemia/neutropenia. Anemia, without signs or symptoms of bleeding reported. Denies chest pain, palpitations or shortness of breath. Denies lightheadedness, dizziness or focal deficits. Denies nausea vomiting or diarrhea. Denies abdominal tenderness. Evaluated by surgery and hematology/oncology with workup in progress. EGD scheduled for today, bone marrow biopsy tomorrow. WBC 2.11, hemoglobin 8.6, platelets 399, renal function stable, T bili less than 0.15 AST 37, alk phos 206. LDH 768. 10/06/2021 completed EGD yesterday reporting gastroesophageal reflux disease, sliding hiatal hernia with no evidence of active bleed. Esophagus biopsy reported benign squamoglandular mucosa with mild chronic esophagitis, negative for intestinal metaplasia. Intramucosal eosinophils not identified. Scheduled for bone marrow biopsy today. Denies nausea vomiting or abdominal pain. Afebrile. WBC 2, hemoglobin 8.7, platelets 681. Denies chest pain, palpitations or shortness of breath. Objective - Vital Signs Vital signs: Vital Signs Temp 97.8 F 10/06/21 12:29 Pulse 55 L 10/06/21 12:29 Resp 18 10/06/21 12:29 BP 173/67 10/06/21 12:29 Pulse Ox 93 L 10/06/21 12:29 FiO2 Intake & Output 10/05/21 10/06/21 10/06/21 18:59 06:59 18:59 Intake Total 692 710 300 Balance 692 710 300 Intake: IV 100 300 Oral 592 710 Other: Voiding Method Toilet Toilet # Voids 1 - Exam - Exam GENERAL: Sitting up in bed, alert and oriented x3, no acute distress. HEENT: Pupils round and equally reacting to light. EOMI. No scleral icterus. No conjunctival pallor. Normocephalic, atraumatic. CARDIOVASCULAR: S1 and S2 present. No murmurs, rubs, or gallops. PULMONARY: Chest is clear to auscultation, no wheezing or crackles. ABDOMEN: Soft, nontender, nondistended, normoactive bowel sounds. No palpable organomegaly. EXTREMITIES: No cyanosis, clubbing, bilateral lower extremity pitting edema NEUROLOGICAL: Cranial nerves II-12 grossly intact, no focal deficits. SKIN: No rashes. Warm and dry. - Labs CBC & Chem 7: 10/06/21 06:25 10/05/21 06:36 Labs: Abnormal Lab Results - Last 24 Hours (Table) 10/06/21 Range/Units 06:25 WBC 2.0 L (3.8-10.6) k/uL RBC 2.91 L (4.30-5.90) m/uL Hgb 8.7 L (13.0-17.5) gm/dL Hct 28.4 L (39.0-53.0) % MCHC 30.5 L (31.0-37.0) g/dL RDW 19.9 H (11.5-15.5) % Plt Count 681 H (150-450) k/uL Neutrophils # (Manual) 0.20 L* (1.3-7.7) k/uL Retic Count 2.7 H (0.5-2.0) % Microbiology - Last 24 Hours (Table) 09/30/21 14:58 Blood Culture - Final Blood No Growth after 144 hours 09/30/21 15:26 Blood Culture - Final Blood No Growth after 144 hours Assessment and Plan Assessment: Anemia, Leukopenia ,neutropenia, workup in progress Thrombocytosis GERD Chronic esophagitis Sliding hiatal hernia reported per EGD Bilateral extremity swelling hypoalbuminemia. sinus bradycardia, chronic,asymptomatic associated with right bundle branch block Hypertension Hyperlipidemia osteoarthritis History of alcohol use Nicotine dependence Plan: Continue on current medication regime ,monitoring and symptomatic treatment. Scheduled for bone marrow biopsy today. Prognosis guarded given multiple complex medical issues. The impression and plan of care has been dictated as directed. : I performed a history and examination of this patient, discussed the same with the dictator. I agree with the dictator's note ,documented as a scribe. Any additional findings or plans will be noted.
[2021-10-06] MEDS: ZINC SULFATE 220 MG CAP PO SCH (20:46)
[2021-10-06] MEDS: FUROSEMIDE 20 MG TAB PO SCH (20:47)
[2021-10-07] MEDS: ACETAMINOPHEN TAB 500 MG TAB PO PRN ×2 (04:54→20:54)
--- NOTE | 2021-10-07 07:24 | CA ---
Transthoracic Echo Report Name: Jeancarlos Carreno Age: 56 Gender: M : 1965 Exam Date: 10/05/2021 13:34 Exam Location: [facility] Ht (in): 67 Wt (lb): 210 Ordering Physician: Dixie Burnham Attending/Referring Phys: Product Safety Associate Bridget Gipson RDCS Procedure CPT: Indications: edema Cardiac Hx: Technical Quality: Good Contrast 1: Total Dose (mL): Contrast 2: Total Dose (mL): MEASUREMENTS (Male / Female) Normal Values 2D ECHO LV Diastolic Diameter PLAX 5.0 cm 4.2 - 5.9 / 3.9 - 5.3 cm LV Systolic Diameter PLAX 2.3 cm IVS Diastolic Thickness 1.1 cm 0.6 - 1.0 / 0.6 - 0.9 cm LVPW Diastolic Thickness 1.2 cm 0.6 - 1.0 / 0.6 - 0.9 cm LV Relative Wall Thickness 0.5 RV Internal Dim ED PLAX 2.8 cm LVOT Diameter 2.1 cm LA Volume 46.7 cm??? 18 - 58 / 22 - 52 cm??? M-MODE Aortic Root Diameter MM 3.9 cm LA Systolic Diameter MM 3.2 cm LA Ao Ratio MM 0.8 MV E Point Septal Separation 1.4 cm AV Cusp Separation MM 1.5 cm DOPPLER AV Peak Velocity 333.8 cm/s AV Peak Gradient 44.6 mmHg AV Mean Velocity 254.5 cm/s AV Mean Gradient 28.2 mmHg AV Velocity Time Integral 58.7 cm AI Peak Velocity 346.0 cm/s AI Peak Gradient 47.9 mmHg AI Pressure Half Time 1127.4 ms LVOT Peak Velocity 130.2 cm/s LVOT Peak Gradient 6.8 mmHg AV Area Cont Eq pk 1.4 cm??? MV Area PHT 2.2 cm??? Mitral E Point Velocity 90.3 cm/s Mitral A Point Velocity 96.3 cm/s Mitral E to A Ratio 0.9 MV Deceleration Time 346.3 ms MV E' Velocity 7.8 cm/s Mitral E to MV E' Ratio 11.6 TR Peak Velocity 233.6 cm/s TR Peak Gradient 21.8 mmHg Right Ventricular Systolic Press 26.8 mmHg FINDINGS Left Ventricle Mildly increased septal wall thickness. Left ventricular ejection fraction is estimated at 55-60 %. Left ventricular cavity size normal. No obvious regional wall motion abnormalities. Normal left ventricular diastolic filling pattern. Right Ventricle The right ventricle is normal in size and function. Right Atrium The right atrium is normal in size. Left Atrium The left atrium is normal in size. Mitral Valve Structurally normal mitral valve without significant stenosis or prolapse. There is mild mitral regurgitation. Aortic Valve Diffuse thickening of the aortic valve cusps with reduced excursion. Moderate aortic stenosis with a peak gradient of 45 mmHg and a mean gradient of 28 mmHg. . There is mild aortic regurgitation. Cannot rule out bicuspid valve Tricuspid Valve Structurally normal tricuspid valve without significant stenosis. Pulmonary artery systolic pressure is normal. Mild tricuspid regurgitation. Pulmonic Valve Structurally normal pulmonic valve without significant stenosis. There is no pulmonic regurgitation. Pericardium Normal pericardium without effusion. Aorta Normal aortic root dimension. CONCLUSIONS 1. Normal the ventricle size and systolic function 2. Mild mitral and tricuspid regurgitation 3. Calcified aortic valve with moderate aortic stenosis and mild aortic regurgitation, cannot exclude bicuspid aortic valve Previewed by: Dr. Matthew Aquino MD (Electronically Signed) Final Date: 07 October 2021 07:23
[2021-10-07] MEDS: amLODIPine 5 MG TAB PO SCH (08:26)
[2021-10-07] MEDS: FOLIC ACID 1 MG TAB PO SCH (08:26)
[2021-10-07] MEDS: CHOLECALCIFEROL 25 MCG (1000 IU) TABLET PO SCH (08:26)
[2021-10-07] MEDS: ATORVASTATIN 10 MG TAB PO SCH (08:26)
[2021-10-07] MEDS: FAMOTIDINE 20 MG TAB PO SCH ×2 (08:26→20:54)
[2021-10-07] MEDS ORDERED: FUROSEMIDE 10 MG/ML 2 ML VIAL IV STA (09:18)
[2021-10-07] MEDS: traMADol 50 MG TAB PO PRN ×3 (09:39→22:15)
[2021-10-07 14:09] VITALS: BMI 32.8
--- NOTE | 2021-10-07 14:23 | P.PN ---
Subjective Progress Note Date: 10/07/21 CHIEF COMPLAINT: Anemia HISTORY OF PRESENT ILLNESS: Patient status post EGD that demonstrated GERD and sliding hiatal hernia. No evidence of active bleed. Biopsy result had shown mild chronic esophagitis. Patient status post bone marrow biopsy. Patient denies abdominal pain. Denies any nausea vomiting afebrile. Last hemoglobin stable at 8.7 Patient seen and examined with Dr. renteria PHYSICAL EXAM: VITAL SIGNS: Reviewed. GENERAL: Well-developed in no acute distress. HEENT: No sclera icterus. Extraocular movements grossly intact. Moist buccal mucosa. Head is atraumatic, normocephalic. ABDOMEN: Soft. Nondistended. Nontender. NEUROLOGIC: Alert and oriented. Cranial nerves II through XII grossly intact. ASSESSMENT: 1. Anemia status post EGD demonstrating GERD and sliding handler hernia and esophagitis 2. Recent colonoscopy 09/24/2021 with colon polyps, diverticulosis and hemor rhoids 3. Neutropenia PLAN: -Surgical service will sign off. Please call with any questions or concerns -Continue supportive care -Continue oncology workup Physician Die Mechanic note has been reviewed by physician. Signing provider agrees with the documented findings, assessment, and plan of care. Objective - Vital Signs Vital signs: Vital Signs Temp 97.6 F 10/07/21 11:23 Pulse 53 L 10/07/21 11:23 Resp 18 10/07/21 11:23 BP 133/69 10/07/21 11:23 Pulse Ox 96 10/07/21 11:23 FiO2 Intake & Output 10/06/21 10/07/21 10/07/21 18:59 06:59 18:59 Intake Total 300 1340 Balance 300 1340 Weight 95.254 kg Intake: IV 300 Oral 1340 Other: Voiding Method Toilet Toilet # Voids 3 2 1 - Labs CBC & Chem 7: 10/06/21 06:25 10/05/21 06:36 Labs: Microbiology - Last 24 Hours (Table) 09/30/21 14:58 Blood Culture - Final Blood No Growth after 144 hours 09/30/21 15:26 Blood Culture - Final Blood No Growth after 144 hours
--- NOTE | 2021-10-07 15:12 | P.PN ---
Subjective Progress Note Date: 10/07/21 Principal diagnosis: Cytopenias Status bone marrow, awaiting results Objective - Vital Signs Vital signs: Vital Signs Temp 97.6 F 10/07/21 11:23 Pulse 53 L 10/07/21 11:23 Resp 18 10/07/21 11:23 BP 133/69 10/07/21 11:23 Pulse Ox 96 10/07/21 11:23 FiO2 Intake & Output 10/06/21 10/07/21 10/07/21 18:59 06:59 18:59 Intake Total 300 1340 Balance 300 1340 Weight 95.254 kg Intake: IV 300 Oral 1340 Other: Voiding Method Toilet Toilet # Voids 3 2 1 - Exam - Constitutional General appearance: cooperative - EENT Eyes: EOMI ENT: NA/AT - Neck Neck: normal ROM - Respiratory Respiratory: bilateral: diminished - Cardiovascular Rhythm: regularly irregular - Gastrointestinal General gastrointestinal: soft, Distended - Integumentary Integumentary: pale BLE Edema - Neurologic Neurologic: CNII-XII intact - Musculoskeletal Musculoskeletal: generalized weakness - Psychiatric Psychiatric: A&O x's 3, appropriate affect - Labs CBC & Chem 7: 10/06/21 06:25 10/05/21 06:36 Labs: Microbiology - Last 24 Hours (Table) 09/30/21 14:58 Blood Culture - Final Blood No Growth after 144 hours 09/30/21 15:26 Blood Culture - Final Blood No Growth after 144 hours Assessment and Plan (1) Thrombocytosis Current Visit: Yes Status: Acute Code(s): D75.839 - THROMBOCYTOSIS, UNSPECIFIED SNOMED Code(s): 6337250 (2) Anemia Narrative/Plan: Full work-up ordered Status post Colonoscopy in August. EGD today Current Visit: Yes Status: Acute Code(s): D64.9 - ANEMIA, UNSPECIFIED SNOMED Code(s): 169858035 (3) Leukopenia Narrative/Plan: Unclear etiology, evidence of neutropenia Full inflammatory work-up ordered along with infectious work-up Per radiology report no abnormalities seen in liver, may require a more focused exam to truly rule out however noted deficiencies that may be underlying factors to leukopenia and anemia have been identified. Folate and B12 are markedly low. Further evaluation for pernicious anemia ordered. Patient also has a known history and recent use of daily/excessive alcohol use, which may be related to nutritional deficiencies. We have also asked surgery to perform EGD, patient states has only had colonoscopy. Immunoglobulins are decreased IgG and Igm. Underlying viral infections HIV, Hepatitis, EBV would also be considered in differential. Await CBC today Current Visit: Yes Status: Acute Code(s): D72.819 - DECREASED WHITE BLOOD CELL COUNT, UNSPECIFIED SNOMED Code(s): 50701447 (4) Neutropenic Narrative/Plan: Prolonged and severe therefore a need for Bone marrow eval Current Visit: Yes Status: Acute Code(s): D70.9 - NEUTROPENIA, UNSPECIFIED SNOMED Code(s): 032597841 Plan: History of ETOH abuse and daily use, Daily TObacco 1-2 packs, possible underlying liver disease. Abdominal imaging ordering and bicytopenia work-up CT Negative B12, Folic acid and Vitamin D3 supplements ordered Pernicious anemia appears probable continue B12 Status post BM Biopsy await results Dr. Traylor: I have completed the full history and physical and developed the above impression and plan, agree with above dictation, dictated as a ascribe.
[2021-10-07] MEDS: ZINC SULFATE 220 MG CAP PO SCH (20:55)
[2021-10-07] MEDS: FUROSEMIDE 20 MG TAB PO SCH (20:55)
[2021-10-08] MEDS: FOLIC ACID 1 MG TAB PO SCH (08:57)
[2021-10-08] MEDS: ATORVASTATIN 10 MG TAB PO SCH (08:57)
[2021-10-08] MEDS: amLODIPine 5 MG TAB PO SCH (08:57)
[2021-10-08] MEDS: traMADol 50 MG TAB PO PRN ×2 (08:57→20:18)
[2021-10-08] MEDS: CHOLECALCIFEROL 25 MCG (1000 IU) TABLET PO SCH (08:57)
[2021-10-08] MEDS: FAMOTIDINE 20 MG TAB PO SCH ×2 (08:58→20:19)
[2021-10-08 12:07] LABS: INR 0.9 (<1.2); Partial Thromboplastin Time 25.2 sec (22.0-30.0); Prothrombin Time 10.1 sec (9.0-12.0)
[2021-10-08 12:11] LABS: ALT 32 U/L (4-49); AST 36 U/L (17-59); African American GFR (CKD) >90 (>60 ml/min/1.73 sqM); Albumin 2.2 g/dL (3.5-5.0); Albumin/Globulin Ratio 0.8; Alkaline Phosphatase 200 U/L (38-126); Anion Gap 2 mmol/L; Blood Urea Nitrogen 14 mg/dL (9-20); Calcium 7.5 mg/dL (8.4-10.2); Carbon Dioxide 27 mmol/L (22-30); Chloride 102 mmol/L (98-107); Globulin 2.6 g/dL; Glucose 83 mg/dL (74-99); LDH 695 U/L (313-618); Magnesium 1.9 mg/dL (1.6-2.3); Non-African American GFR(CKD) 88 (>60 ml/min/1.73 sqM); Sodium 131 mmol/L (137-145); Total Bilirubin 0.1 mg/dL (0.2-1.3); Total Protein 4.8 g/dL (6.3-8.2)
[2021-10-08 12:22] LABS: Anisocytosis Slight; HCT 31.1 % (39.0-53.0); HGB 9.3 gm/dL (13.0-17.5); Hypochromasia Marked; MCH 29.7 pg (25.0-35.0); MCHC 29.8 g/dL (31.0-37.0); MCV 99.6 fL (80.0-100.0); Macrocytosis Moderate; Mean Platelet Volume 7.3; Poikilocytosis Slight; RBC 3.12 m/uL (4.30-5.90); RDW 19.6 % (11.5-15.5)
--- NOTE | 2021-10-08 13:24 | P.PN ---
Subjective Progress Note Date: 10/07/21 This is a 56-year-old gentleman presented to the hospital with worsening lower extremity edema. 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 Outpatient patient had been working with his PCP, Dr. Ulrich regarding workup of anemia/neutropenia. Anemia, without signs or symptoms of bleeding reported. Denies chest pain, palpitations or shortness of breath. Denies lightheadedness, dizziness or focal deficits. Denies nausea vomiting or diarrhea. Denies abdominal tenderness. Evaluated by surgery and hematology/oncology with workup in progress. EGD scheduled for today, bone marrow biopsy tomorrow. WBC 2.11, hemoglobin 8.6, platelets 399, renal function stable, T bili less than 0.15 AST 37, alk phos 206. LDH 768. 10/06/2021 completed EGD yesterday reporting gastroesophageal reflux disease, sliding hiatal hernia with no evidence of active bleed. Esophagus biopsy reported benign squamoglandular mucosa with mild chronic esophagitis, negative for intestinal metaplasia. Intramucosal eosinophils not identified. Scheduled for bone marrow biopsy today. Denies nausea vomiting or abdominal pain. Afebrile. WBC 2, hemoglobin 8.7, platelets 681. Denies chest pain, palpitations or shortness of breath. 10/07/2021 status post bone marrow biopsy, tolerated procedure well. Pathology pending .decreased bilateral lower extremity edema. Reports bilateral lower extremity pain unrelieved by Tylenol. Objective - Vital Signs Vital signs: Vital Signs Temp 97.7 F 10/07/21 05:00 Pulse 52 L 10/07/21 05:00 Resp 18 10/07/21 05:00 BP 165/75 10/07/21 05:00 Pulse Ox 94 L 10/07/21 05:00 FiO2 Intake & Output 10/06/21 10/07/21 10/07/21 18:59 06:59 18:59 Intake Total 300 1340 Balance 300 1340 Intake: IV 300 Oral 1340 Other: Voiding Method Toilet Toilet # Voids 3 2 - Exam - Exam GENERAL: Sitting up in bed, alert and oriented x3, no acute distress. HEENT: Pupils round and equally reacting to light. EOMI. No scleral icterus. No conjunctival pallor. Normocephalic, atraumatic. CARDIOVASCULAR: S1 and S2 present. No murmurs, rubs, or gallops. PULMONARY: Chest is clear to auscultation, no wheezing or crackles. ABDOMEN: Soft, nontender, nondistended, normoactive bowel sounds. No palpable organomegaly. EXTREMITIES: No cyanosis, clubbing, decreasing , bilateral lower extremity pi tting edema NEUROLOGICAL: Cranial nerves II-12 grossly intact, no focal deficits. SKIN: No rashes. Warm and dry. - Labs CBC & Chem 7: 10/08/21 11:43 10/08/21 11:43 Labs: Abnormal Lab Results - Last 24 Hours (Table) 10/06/21 Range/Units 06:25 Neutrophils # (Manual) 0.20 L* (1.3-7.7) k/uL Microbiology - Last 24 Hours (Table) 09/30/21 14:58 Blood Culture - Final Blood No Growth after 144 hours 09/30/21 15:26 Blood Culture - Final Blood No Growth after 144 hours Assessment and Plan Assessment: Anemia, Leukopenia ,neutropenia, status post bone marrow biopsy, pathology pending Thrombocytosis GERD Chronic esophagitis Sliding hiatal hernia reported per EGD Bilateral extremity swelling hypoalbuminemia. sinus bradycardia, chronic,asymptomatic associated with right bundle branch block Hypertension Hyperlipidemia osteoarthritis History of alcohol use Nicotine dependence Plan: Continue on current medication regime ,monitoring and symptomatic treatment. bone marrow biopsy pathology pending. Lasix 20 mg IV push 1. Thigh high teds ordered. Ultrasound ordered for pain management. Prognosis guarded given multiple complex medical issues. Discharge planning in progress pending final DC recommendations and clearance per oncology, tomorrow. The impression and plan of care has been dictated as directed. : I performed a history and examination of this patient, discussed the same with the dictator. I agree with the dictator's note ,documented as a scribe. Any additional findings or plans will be noted.
--- NOTE | 2021-10-08 13:30 | P.PN ---
Subjective Progress Note Date: 10/08/21 This is a 56-year-old gentleman presented to the hospital with worsening lower extremity edema. 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 Outpatient patient had been working with his PCP, Dr. Ulrich regarding workup of anemia/neutropenia. Anemia, without signs or symptoms of bleeding reported. Denies chest pain, palpitations or shortness of breath. Denies lightheadedness, dizziness or focal deficits. Denies nausea vomiting or diarrhea. Denies abdominal tenderness. Evaluated by surgery and hematology/oncology with workup in progress. EGD scheduled for today, bone marrow biopsy tomorrow. WBC 2.11, hemoglobin 8.6, platelets 399, renal function stable, T bili less than 0.15 AST 37, alk phos 206. LDH 768. 10/06/2021 completed EGD yesterday reporting gastroesophageal reflux disease, sliding hiatal hernia with no evidence of active bleed. Esophagus biopsy reported benign squamoglandular mucosa with mild chronic esophagitis, negative for intestinal metaplasia. Intramucosal eosinophils not identified. Scheduled for bone marrow biopsy today. Denies nausea vomiting or abdominal pain. Afebrile. WBC 2, hemoglobin 8.7, platelets 681. Denies chest pain, palpitations or shortness of breath. 10/07/2021 status post bone marrow biopsy, tolerated procedure well. Pathology pending .decreased bilateral lower extremity edema. Reports bilateral lower extremity pain unrelieved by Tylenol. 10/08/2021 pathology pending. Decreased bilateral lower extremity edema. Rep orts less lower extremity pain today. Denies chest pain, palpitations or shortness of breath. Afebrile, maintaining O2 sats in the 90s on room air. WBC 2.8 hemoglobin 9.3 platelets 703, sodium 131, potassium 5, bicarbonate 27, BUN 14, creatinine 0.95, magnesium 1.9, TP PA 0.1, alk phos 200 LDH 695. Objective - Vital Signs Vital signs: Vital Signs Temp 97.7 F 10/08/21 12:07 Pulse 55 L 10/08/21 12:07 Resp 18 10/08/21 12:07 BP 169/66 10/08/21 12:07 Pulse Ox 94 L 10/08/21 12:07 FiO2 Intake & Output 10/07/21 10/08/21 10/08/21 18:59 06:59 18:59 Intake Total 296 520 296 Balance 296 520 296 Weight 95.254 kg Intake: Oral 296 520 296 Other: Voiding Method Toilet Toilet Toilet # Voids 2 2 - Exam - Exam GENERAL: Sitting up in bed, alert and oriented x3, no acute distress. HEENT: Pupils round and equally reacting to light. EOMI. No scleral icterus. No conjunctival pallor. Normocephalic, atraumatic. CARDIOVASCULAR: S1 and S2 present. No murmurs, rubs, or gallops. PULMONARY: Respiratory effort normal, Chest is clear to auscultation, no wheezing or crackles. ABDOMEN: Soft, nontender, nondistended, normoactive bowel sounds. No palpable organomegaly. No guarding. EXTREMITIES: No cyanosis, clubbing, decreased bilateral lower extremity pitting edema NEUROLOGICAL: Cranial nerves II-12 grossly intact, no focal deficits. SKIN: No rashes. Warm and dry. - Labs CBC & Chem 7: 10/08/21 11:43 10/08/21 11:43 Labs: Abnormal Lab Results - Last 24 Hours (Table) 10/08/21 Range/Units 11:43 Sodium 131 L (137-145) mmol/L Calcium 7.5 L (8.4-10.2) mg/dL Total Bilirubin 0.1 L (0.2-1.3) mg/dL Alkaline Phosphatase 200 H (38-126) U/L Lactate Dehydrogenase 695 H (313-618) U/L Total Protein 4.8 L (6.3-8.2) g/dL Albumin 2.2 L (3.5-5.0) g/dL Assessment and Plan Assessment: Anemia, Leukopenia ,neutropenia, status post bone marrow biopsy, pathology pen ding Thrombocytosis GERD Chronic esophagitis Sliding hiatal hernia reported per EGD Bilateral extremity swelling hypoalbuminemia. sinus bradycardia, chronic,asymptomatic associated with right bundle branch block Hypertension Hyperlipidemia osteoarthritis History of alcohol use Nicotine dependence Plan: Continue on current medication regime ,monitoring and symptomatic treatment. Bone marrow biopsy pathology pending. Discharge planning in progress pending final DC recommendations and clearance per oncology. The impression and plan of care has been dictated as directed. : I performed a history and examination of this patient, discussed the same with the dictator. I agree with the dictator's note ,documented as a scribe. Any additional findings or plans will be noted.
[2021-10-08 15:00] LABS: Band Neutrophils % 2 %; Neutrophils % (M) 10 %
[2021-10-08 15:01] LABS: Basophils # (M) 0.05 k/uL (0-0.2); Eosinophils # (M) 0.35 k/uL (0-0.7); Lymphocytes # (M) 1.81 k/uL (1.0-4.8); Monocytes # (M) 0.16 k/uL (0-1.0); Nucleated Red Blood Cells 2 /100 WBC (0-0); Total Cells Counted 100; WBC 2.7 k/uL (3.8-10.6)
[2021-10-08 15:03] LABS: Platelet Count 703 k/uL (150-450); Polychromasia Present
--- NOTE | 2021-10-08 15:42 | P.PN ---
Subjective Progress Note Date: 10/08/21 Principal diagnosis: Prolonged neutropenia Neutrophils still markedly low, May consider home and follow-up as outpatient with ne neutropenic precautions nd prophylaxic antibiotics, platelets and hemoglobin stable. Plan on home with FOlate, B12 Objective - Vital Signs Vital signs: Vital Signs Temp 97.7 F 10/08/21 12:07 Pulse 55 L 10/08/21 12:07 Resp 18 10/08/21 12:07 BP 169/66 10/08/21 12:07 Pulse Ox 95 10/08/21 15:15 FiO2 Intake & Output 10/07/21 10/08/21 10/08/21 18:59 06:59 18:59 Intake Total 296 520 592 Balance 296 520 592 Weight 95.254 kg Intake: Oral 296 520 592 Other: Voiding Method Toilet Toilet Toilet # Voids 2 2 - Exam - Constitutional General appearance: cooperative - EENT Eyes: EOMI ENT: NA/AT - Neck Neck: normal ROM - Respiratory Respiratory: bilateral: diminished - Cardiovascular Rhythm: regularly irregular - Gastrointestinal General gastrointestinal: soft, Distended - Integumentary Integumentary: pale BLE Edema - Neurologic Neurologic: CNII-XII intact - Musculoskeletal Musculoskeletal: generalized weakness - Psychiatric Psychiatric: A&O x's 3, appropriate affect - Labs CBC & Chem 7: 10/08/21 11:43 10/08/21 11:43 Labs: Abnormal Lab Results - Last 24 Hours (Table) 10/08/21 10/08/21 Range/Units 11:43 11:43 WBC 2.7 L (3.8-10.6) k/uL RBC 3.12 L (4.30-5.90) m/uL Hgb 9.3 L (13.0-17.5) gm/dL Hct 31.1 L (39.0-53.0) % MCHC 29.8 L (31.0-37.0) g/dL RDW 19.6 H (11.5-15.5) % Plt Count 703 H (150-450) k/uL Neutrophils # (Manual) 0.30 L* (1.3-7.7) k/uL Nucleated RBCs 2 H (0-0) /100 WBC Sodium 131 L (137-145) mmol/L Calcium 7.5 L (8.4-10.2) mg/dL Total Bilirubin 0.1 L (0.2-1.3) mg/dL Alkaline Phosphatase 200 H (38-126) U/L Lactate Dehydrogenase 695 H (313-618) U/L Total Protein 4.8 L (6.3-8.2) g/dL Albumin 2.2 L (3.5-5.0) g/dL Assessment and Plan (1) Thrombocytosis Current Visit: Yes Status: Acute Code(s): D75.839 - THROMBOCYTOSIS, UNSPECIFIED SNOMED Code(s): 5127891 (2) Anemia Current Visit: Yes Status: Acute Code(s): D64.9 - ANEMIA, UNSPECIFIED SNOMED Code(s): 614854293 (3) Leukopenia Narrative/Plan: Unclear etiology, evidence of neutropenia Bone Marrow biopsy pending Current Visit: Yes Status: Acute Code(s): D72.819 - DECREASED WHITE BLOOD CELL COUNT, UNSPECIFIED SNOMED Code(s): 21419815 (4) Neutropenic Current Visit: Yes Status: Acute Code(s): D70.9 - NEUTROPENIA, UNSPECIFIED SNOMED Code(s): 636200280 Plan: Discussed with primary team who are hoping to discharge soon, I have reached out ot pathology regarding bone marrow biopsy for possible prelim, awaiting reply. In interim if discharged would send on prophylaxic antibiotic Cipro 500mg or Levaquin Patient will need to be seen next week and appointment made prior to discharge.
[2021-10-08] MEDS: ZINC SULFATE 220 MG CAP PO SCH (20:18)
[2021-10-08] MEDS: FUROSEMIDE 20 MG TAB PO SCH (20:19)
[2021-10-09 04:17] VITALS: RESP 16
[2021-10-09] MEDS: ATORVASTATIN 10 MG TAB PO SCH (08:02)
[2021-10-09] MEDS: amLODIPine 5 MG TAB PO SCH (08:02)
[2021-10-09] MEDS: FOLIC ACID 1 MG TAB PO SCH (08:02)
[2021-10-09] MEDS: FAMOTIDINE 20 MG TAB PO SCH (08:03)
[2021-10-09] MEDS: traMADol 50 MG TAB PO PRN (08:03)
[2021-10-09] MEDS: CHOLECALCIFEROL 25 MCG (1000 IU) TABLET PO SCH (08:03)
[2021-10-09 12:36] VITALS: BP 145/79; PULSE 51; TEMP 97.9
--- NOTE | 2021-10-09 12:45 | P.PN ---
Subjective Progress Note Date: 10/09/21 This is a 56-year-old gentleman presented to the hospital with worsening lower extremity edema. 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 Outpatient patient had been working with his PCP, Dr. Ulrich regarding workup of anemia/neutropenia. Anemia, without signs or symptoms of bleeding reported. Denies chest pain, palpitations or shortness of breath. Denies lightheadedness, dizziness or focal deficits. Denies nausea vomiting or diarrhea. Denies abdominal tenderness. Evaluated by surgery and hematology/oncology with workup in progress. EGD scheduled for today, bone marrow biopsy tomorrow. WBC 2.11, hemoglobin 8.6, platelets 399, renal function stable, T bili less than 0.15 AST 37, alk phos 206. LDH 768. 10/06/2021 completed EGD yesterday reporting gastroesophageal reflux disease, sliding hiatal hernia with no evidence of active bleed. Esophagus biopsy reported benign squamoglandular mucosa with mild chronic esophagitis, negative for intestinal metaplasia. Intramucosal eosinophils not identified. Scheduled for bone marrow biopsy today. Denies nausea vomiting or abdominal pain. Afebrile. WBC 2, hemoglobin 8.7, platelets 681. Denies chest pain, palpitations or shortness of breath. 10/07/2021 status post bone marrow biopsy, tolerated procedure well. Pathology pending .decreased bilateral lower extremity edema. Reports bilateral lower extremity pain unrelieved by Tylenol. 10/08/2021 pathology pending. Decreased bilateral lower extremity edema. Rep orts less lower extremity pain today. Denies chest pain, palpitations or shortness of breath. Afebrile, maintaining O2 sats in the 90s on room air. WBC 2.8 hemoglobin 9.3 platelets 703, sodium 131, potassium 5, bicarbonate 27, BUN 14, creatinine 0.95, magnesium 1.9, TP PA 0.1, alk phos 200 LDH 695. 10/09/2021 bone marrow biopsy pathology pending. Discharge on hold as per oncology. Afebrile, vital signs stable. Denies chest pain, palpitations or shortness of breath. Denies lightheadedness, dizziness or focal deficits. Leg edema significantly improved. Objective - Vital Signs Vital signs: Vital Signs Temp 97.9 F 10/09/21 12:05 Pulse 51 L 10/09/21 12:05 Resp 16 10/09/21 12:05 BP 145/79 10/09/21 12:05 Pulse Ox 95 10/09/21 12:05 FiO2 Intake & Output 10/08/21 10/09/21 10/09/21 18:59 06:59 18:59 Intake Total 888 540 Balance 888 540 Intake: Oral 888 540 Other: Voiding Method Toilet Toilet Toilet # Voids 2 3 - Exam - Exam GENERAL: Alert and oriented 3 ,Sitting up in bed,no acute distress. HEENT: Pupils round and equally reacting to light. EOMI. No scleral icterus. No conjunctival pallor. Normocephalic, atraumatic. CARDIOVASCULAR: S1 and S2 present. No murmurs, rubs, or gallops. PULMONARY: Respiratory effort normal, Chest is clear to auscultation, no wheezing or crackles. ABDOMEN: Soft, nontender, nondistended, normoactive bowel sounds. No palpable organomegaly. No guarding. EXTREMITIES: No cyanosis, clubbing, decreased bilateral lower extremity edema NEUROLOGICAL: Cranial nerves II-12 grossly intact, no focal deficits. SKIN: No rashes. Warm and dry. - Labs CBC & Chem 7: 10/08/21 11:43 10/08/21 11:43 Labs: Abnormal Lab Results - Last 24 Hours (Table) 10/08/21 Range/Units 11:43 WBC 2.7 L (3.8-10.6) k/uL RBC 3.12 L (4.30-5.90) m/uL Hgb 9.3 L (13.0-17.5) gm/dL Hct 31.1 L (39.0-53.0) % MCHC 29.8 L (31.0-37.0) g/dL RDW 19.6 H (11.5-15.5) % Plt Count 703 H (150-450) k/uL Neutrophils # (Manual) 0.30 L* (1.3-7.7) k/uL Nucleated RBCs 2 H (0-0) /100 WBC Assessment and Plan Assessment: Anemia, Leukopenia ,neutropenia, status post bone marrow biopsy, pathology pending Thrombocytosis GERD Chronic esophagitis Sliding hiatal hernia reported per EGD Bilateral extremity swelling hypoalbuminemia. sinus bradycardia, chronic,asymptomatic associated with right bundle branch block Hypertension Hyperlipidemia osteoarthritis History of alcohol use Nicotine dependence Plan: Continue on current medication regime ,monitoring and symptomatic treatment. Bone marrow biopsy pathology pending. Patient eagerly awaiting discharge. Discharge planning in progress pending final DC recommendations and clearance per oncology. The impression and plan of care has been dictated as directed. : I performed a history and examination of this patient, discussed the same with the dictator. I agree with the dictator's note ,documented as a scribe. Any additional findings or plans will be noted.
--- NOTE | 2021-10-09 17:12 | P.PN ---
Subjective Progress Note Date: 10/09/21 Principal diagnosis: Bicytopenia, neutropenia, thrombocythemia In follow-up today patient is laying in bed, he denies any physical complaints, no recent fevers, chills, sore throat or oral irritation, cough, he is tolerating oral intake, no abdominal pain or cramping, no acute changes in bowel or bladder habits. Objective - Vital Signs Vital signs: Vital Signs Temp 97.9 F 10/09/21 12:05 Pulse 51 L 10/09/21 12:05 Resp 16 10/09/21 12:05 BP 145/79 10/09/21 12:05 Pulse Ox 95 10/09/21 12:05 FiO2 Intake & Output 10/08/21 10/09/21 10/09/21 18:59 06:59 18:59 Intake Total 888 540 Balance 888 540 Intake: Oral 888 540 Other: Voiding Method Toilet Toilet Toilet # Voids 2 3 - Constitutional General appearance: Present: average body habitus, cooperative, no acute distress - EENT Eyes: Present: anicteric sclerae, EOMI ENT: Present: hearing grossly normal - Respiratory Respiratory: bilateral: CTA - Cardiovascular Rhythm: regular Heart sounds: normal: S1, S2 Abnormal Heart Sounds: Absent: systolic murmur, diastolic murmur, rub, S3 Gallop, S4 Gallop, click, other - Peripheral edema leg Peripheral Edema: bilateral: None - Gastrointestinal General gastrointestinal: Present: normal bowel sounds, soft - Integumentary Integumentary: Present: normal - Neurologic Neurologic: Present: CNII-XII intact - Musculoskeletal Musculoskeletal: Present: strength equal bilaterally - Psychiatric Psychiatric: Present: A&O x's 3, appropriate affect, intact judgment & insight - Labs CBC & Chem 7: 10/08/21 11:43 10/08/21 11:43 Assessment and Plan (1) Anemia Current Visit: Yes Status: Acute Priority: High Code(s): D64.9 - ANEMIA, UNSPECIFIED SNOMED Code(s): 021926765 (2) Leukopenia Current Visit: Yes Status: Acute Priority: High Code(s): D72.819 - DECREASED WHITE BLOOD CELL COUNT, UNSPECIFIED SNOMED Code(s): 35855249 (3) Neutropenic Current Visit: Yes Status: Acute Priority: High Code(s): D70.9 - NEUTROPENIA, UNSPECIFIED SNOMED Code(s): 752059784 (4) Thrombocytosis Current Visit: Yes Status: Acute Priority: High Code(s): D75.839 - THROMBOCYTOSIS, UNSPECIFIED SNOMED Code(s): 6065762 Plan: Discussed with patient pending bone marrow biopsy and aspirate report still. No urgent preliminary report has been called. Patient is been stable, tolerating oral intake, no fevers. Patient is okay for discharge from an Oncology standpoint. Have sent prescriptions for antibiotic, antiviral and antifungal. Educated patient on the importance of taking these medications as directed. Discussed with patient neutropenic precautions, avoidance of sick people, adequate hydration, rest. If patient develops a fever he is to return to the hospital. Follow-up appointment in the chart for next Tuesday. All of the patient's questions answered to the best my ability and to his satisfaction.
== END 2021-10-09 19:10 | disposition home or self-care (01) | DRG 810 ==
LOC: EC 10:44 → 5NMEDONC 13:31
PROVIDERS: ADMIT Family Medicine; ATTEND Family Medicine
PROC: 0DB48ZX Excision of Esophagogastric Junction, Via Natural or Artificial Opening Endoscopic, Diagnostic (ICD-10-PCS; principal; 2021-10-05 13:45)
PROC: 07DR3ZX Extraction of Iliac Bone Marrow, Percutaneous Approach, Diagnostic (ICD-10-PCS; 2021-10-07)
DX: D70.9 Neutropenia, unspecified (principal); R60.9 Edema, unspecified; E78.5 Hyperlipidemia, unspecified; M19.90 Unspecified osteoarthritis, unspecified site; F17.210 Nicotine dependence, cigarettes, uncomplicated; K21.00 Gastro-esophageal reflux disease with esophagitis, without bleeding; I10 Essential (primary) hypertension; K44.9 Diaphragmatic hernia without obstruction or gangrene; Z86.16 Personal history of COVID-19; Z86.010 Personal history of colon polyps; K64.9 Unspecified hemorrhoids; D64.9 Anemia, unspecified; D75.839 Thrombocytosis, unspecified; E53.8 Deficiency of other specified B group vitamins; E88.09 Other disorders of plasma-protein metabolism, not elsewhere classified; I45.10 Unspecified right bundle-branch block; Z96.653 Presence of artificial knee joint, bilateral
CPT/HCPCS: 36415; 38222; 43239; 71046; 74177; 76700; 80048; 80053; 81001; 82150; 82306; 82525; 82607; 82728; 82746; 82784; 83010; 83021; 83090; 83516; 83540; 83550; 83615; 83690; 83735; 83880; 83883; 83921; 83970; 84100; 84165; 84425; 84443; 84484; 84550; 85025; 85027; 85045; 85379; 85384; 85610; 85613; 85652; 85730; 85732; 86038; 86146; 86147; 86334; 86340; 86376; 86431; 86850; 86900; 86901; 86920; 87040; 88305; 93005; 93306; 93970; 99285

== ENCOUNTER → 2023-01-31 | Outpatient (CLI) | payer OTHER | END | disposition home or self-care (01) | LOC: LABPAT 14:52 | PROVIDERS: ATTEND Orthopaedic Surgery | DX: Z01.812 Encounter for preprocedural laboratory examination (principal); M16.11 Unilateral primary osteoarthritis, right hip; Z22.322 Carrier or suspected carrier of Methicillin resistant Staphylococcus aureus | CPT/HCPCS: 86850; 86900; 86901; 87070 ==

== ENCOUNTER 2023-02-07 10:17 | Observation (INO) | payer OTHER ==
[2023-02-01 13:34] VITALS: BMI 29.0
--- NOTE | 2023-02-06 19:01 | HP ---
HISTORY AND PHYSICAL DATE OF SURGERY: 02/07/2023. HISTORY OF PRESENT ILLNESS: Jeancarlos Carreno is a 57-year-old patient, seen with symptomatic left knee osteoarthritis. We discussed options for treatment. He elected to proceed with left total knee arthroplasty. Consent was obtained. Medical clearance was provided by Dr. Amadou Ulrich. PAST MEDICAL HISTORY: Hypertension and hyperlipidemia. PAST SURGICAL HISTORY: Right knee arthroscopy. DAILY MEDICATIONS: 1. Lipitor. 2. Losartan. 3. Vitamins. ALLERGIES: None. SOCIAL HISTORY: He denies tobacco use. Physical evaluation of the right hip, he has limited range of motion with severe pain. Positive hip impingement sign. Straight leg raise is negative. Distal neurovascular exam is intact. IMAGING STUDIES: Radiographs of the right hip reveal severe osteoarthritic changes. IMPRESSION: 1. osteoarthritis. 2. Hypertension. 3. Hyperlipidemia. PLAN: Direct anterior arthroplasty. MMODL / IJN: [id number] /
[~2023-02-07 10:17] MED LIST changes: +ACETAMINOPHEN TAB 500 MG TAB PO PRN; +DEXAMETHASONE SOD PHOSPHATE 4 MG/ML 1 ML VIAL IV ONE; +HYDROmorphone 0.5 MG/0.5 ML SYRINGE IVP PRN; -LACTATED RINGERS 1,000 ML IV SCH; +MELOXICAM 7.5 MG TAB PO PRN; +ONDANSETRON 4 MG/2 ML VIAL IVP ONE; +TRANEXAMIC 1,000 MG/100ML-NACL 1,000 MG in SALINE 1 100ML.BAG IVPB PRN; +droPERidol 5 MG/2 ML VIAL IVP ONE
[2023-02-07] MEDS: LACTATED RINGERS 1,000 ML IV SCH ×2 (12:10→15:52)
[2023-02-07 12:24] LABS: Glucose,Whole Blood 93 mg/dL (70-110)
[2023-02-07] MEDS ORDERED: MIDAZOLAM 2 MG/2 ML VIAL IVP ONE (12:40)
[2023-02-07] MEDS ORDERED: SODIUM CHLORIDE 0.9% (PF) 10 ML VIAL ONE (13:14)
[2023-02-07] MEDS ORDERED: TRANEXAMIC 1,000 MG/100ML-NACL PREMIX BAG ONE (13:14)
[2023-02-07] MEDS ORDERED: DEXAMETHASONE SOD PHOSPHATE 4 MG/ML 1 ML VIAL ONE (13:14)
[2023-02-07] MEDS ORDERED: PROPOFOL 10 MG/ML 20 ML VIAL IV ONE (13:14)
[2023-02-07] MEDS ORDERED: SUCCINYLCHOLINE CHLORIDE 200 MG/10 ML VIAL IV ONE (13:14)
[2023-02-07] MEDS ORDERED: ROPIVACAINE 5 MG/ML 30 ML VIAL ONE (13:14)
[2023-02-07] MEDS ORDERED: HYDROmorphone (PF) 1 MG/ML ONE (13:14)
[2023-02-07] MEDS ORDERED: GLYCOPYRROLATE 0.2 MG/ML 2 ML VIAL ONE (13:14)
[2023-02-07] MEDS ORDERED: fentaNYL (PF) 50 MCG/ML 2 ML AMP ONE (13:14)
[2023-02-07] MEDS ORDERED: MIDAZOLAM 2 MG/2 ML VIAL ONE (13:14)
[2023-02-07] MEDS ORDERED: ePHEDrine 50 MG/ML 1 ML VIAL ONE (13:14)
[2023-02-07] MEDS ORDERED: ceFAZolin 1,000 MG in SODIUM CHLORIDE 0.9% 1,000 ML IRRIGATION ONE (13:53)
--- NOTE | 2023-02-07 14:06 | P.ANPRN ---
Procedure Note - Anesthesia - Nerve Block Performed Right Richard Single Time Out Performed: Yes Date of Procedure: 02/07/23 Procedure Start Time: 12:40 Procedure Stop Time: 12:45 Location of Patient: PreOp Indication: Acute Post-Operative Pain, Requested by Surgeon Sedation Type: Sedate with meaningful contact maintained Preparation: Sterile Prep Position: Supine Needle Types: Pajunk Needle Gauge: 21 Ultrasound used to visualize needle placement: Yes Ultrasound used to observe medication spread: Yes Blood Aspirated: No Pain Paresthesia on Injection Noted: No Resistance on Injection: Normal Image Stored and Saved: Yes Events: Uneventful and Well Tolerated (ropi .5% 25cc plus dexamethasone 4mg)
--- NOTE | 2023-02-07 14:52 | XR ---
EXAMINATION TYPE: XR Hip Limited RT DATE OF EXAM: 02/07/2023 CLINICAL HISTORY: Postoperative evaluation TECHNIQUE: Single portable view of the right hip was submitted. FINDINGS: Noted are changes of total hip arthroplasty with femoral and acetabular components appearin g well seated. Alignment is anatomic. Postsurgical soft tissue changes are evident. IMPRESSION: Satisfactory postoperative alignment
--- NOTE | 2023-02-07 14:54 | FL ---
Fluoroscopy History: Rt Hip-Ant FL TIME: 14 SEC DAP: 1.2874 RI HIP-ANT GP/CL[facility] DR. VALENTIN
[2023-02-07] MEDS ORDERED: ONDANSETRON 4 MG/2 ML VIAL IVP PRN (14:59)
[2023-02-07] MEDS ORDERED: NALOXONE 0.4 MG/ML 1 ML VIAL IV PRN (14:59)
[2023-02-07] MEDS ORDERED: HYDROmorphone 0.5 MG/0.5 ML SYRINGE IVP PRN (14:59)
[2023-02-07] MEDS ORDERED: HYDROmorphone 1 MG/ML 1 ML SYRINGE IVP PRN (14:59)
--- NOTE | 2023-02-07 14:59 | P.OP ---
Date of Procedure: 02/07/23 Preoperative Diagnosis: Right hip osteoarthritis Postoperative Diagnosis: Right hip osteoarthritis Procedure(s) Performed: Direct anterior right total hip arthroplasty Implants: 1. Depuy Corail KLA size 16 high offset collared press-fit femoral stem 2. Depuy Hinkle 52 mm press-fit acetabular shell 3. Depuy Hinkle neutral polyethylene acetabular liner 36 mm ID 52 mm OD 4. Biolox delta ceramic femoral head +1.5 36 mm Anesthesia: ANDREWA, spinal Surgeon: Calvin Guerrero Batch Records Clerk #1: Italo Amato Estimated Blood Loss (ml): 55 Pathology: none sent Condition: stable Disposition: PACU Indications for Procedure: 57-year-old patient seen with symptomatic right hip osteoarthritis. After having treatment options discussed, he elected to proceed with direct anterior right total hip arthroplasty. Operative Findings: See description of procedure Description of Procedure: The patient was taken to the operative suite. Patient underwent a spinal anesthetic by the department of anesthesia. Patient was then transferred to the [place] table. Patient was given preoperative IV antibiotics and TXA. Both lower extremities were placed in standard leg spars. The hip was then prepped and draped in the normal sterile orthopedic fashion. A standard anterior incision was made beginning 3 cm lateral and 1 cm distal to the ASIS extending 10 cm. The patient felt this incision. Anesthesia converted him to a general anesthetic at this point. Dissection was then carried down through the subcutaneous soft tissues down to the fascia overlying the tensor fascia judith. An incision was now made through the fascia. Careful dissection was taken down exposing the tensor fascia judith muscle. A Cobra retractor was now placed along the medial femoral neck and a second one along the lateral femoral neck. The venous circumflex vessels were now identified, cauterized and clipped. We identified the anterior hip capsule. An incision was made through the hip capsule along the lateral border. I performed a partial anterior capsulectomy. Retractors were now placed around the femoral neck itself. A femoral neck cut was now made with a sagittal saw. It was completed with an osteotome at the lateral neck area. The femoral head was now removed without difficulty. The extremity was now rotated to 45 of external rotation. It was locked in position. Residual labrum was now debrided out. Serial reaming was performed of the acetabulum while [place] [facility] assisted holding an anterior retractor for exposure. Once we reached the appropriate size and a trial was position and fit nicely. The appropriate size was now chosen opened and made available. It was introduced into the acetabulum without difficulty. The C-arm/fluoroscopy was now brought into the operative field. We made sure we had a true AP pelvic view. We now under direct C-arm/fluoroscopy introduced into the acetabular component with appropriate version and inclination. I held the cup in appropriate position well [place] [facility] used a mallet to seat the acetabular component. I noted the component now to be well seated and stable. Acetabular cup introduce her was removed. The C-arm was pulled back. An appropriate liner was introduced and clicked into position. It was felt to be stable. At this point retractors were removed. The extremity was now placed into 120 external rotation with no traction. The leg was now dropped to the ground and adducted. Appropriate retractors were now positioned along the proximal femur. We also placed our femoral look into position. Additional capsular releasing was performed to gain access to the proximal femur. We now used a box osteotome. A canal finder was now utilized. Serial broaching was now performed with the assistance of [place] [facility] tapping the broaches down with a mallet while held the broach in appropriate rotation and position. This was done until we reached the appropriate size with good overall rotational stability. Appropriate calcar planing was performed. A trial head/neck was placed into position. The hip was now reduced. The C-arm/fluoroscopy was brought back into the operative field. A spot film was obtained of the nonoperative hip. I obtained an AP pelvis was demonstrated adequate leg length alignment. The trial components appeared adequately sized and positioned. The C-arm/fluoroscopy was pulled back. Retractors were repositioned and the hip was dislocated. The leg was again taken down to the ground and adducted. Appropriate retractors were repositioned as well as the femoral hook. All trial components were removed. The femoral implant was opened along with the femoral head. The femoral implant was introduced on the appropriate handle into our pre-broached area. I held the component position well [place] [facility] used a mallet to seat the femoral component. The femoral component was now noted to be well seated and stable. The femoral head was introduced with good positioning and fixation noted. Retractors were now removed. The hip was now reduced. There appeared be good positioning of the hip confirmed on intraoperative fluoroscopy. Spot films were obtained to document this. A second gram of TXA was given. Bipolar cautery had been utilized intermittently through the procedure for hemostasis. The wound was irrigated copiously with pulse lavage mechanical irrigation. The fascia was repaired with Vicryl suture. The subcutaneous soft tissues were repaired in layers with Vicryl suture. The skin was approximated with pernio/Dermabond. Sterile dressings were applied. Patient was then awakened, transferred to a bed and taken to recovery in stable condition. [place] [facility] assisted with the complex procedure.
[2023-02-07] MEDS ORDERED: HYDROmorphone 0.5 MG/0.5 ML SYRINGE IVP ONE ×3 (16:03→16:19)
[2023-02-07] MEDS: HYDROcodone/APAP 7.5-325MG 1 EACH TAB PO PRN (17:39)
[2023-02-07] MEDS: ATORVASTATIN 10 MG TAB PO SCH (21:05)
[2023-02-07] MEDS: HYDROcodone/APAP 5-325MG 1 EACH TAB PO PRN (21:05)
[2023-02-07] MEDS: SENNOSIDES-DOCUSATE SODIUM 1 EACH TAB PO SCH (21:20)
[2023-02-08] MEDS: HYDROmorphone 0.5 MG/0.5 ML SYRINGE IVP PRN ×4 (00:27→23:58)
[2023-02-08] MEDS: LACTATED RINGERS 1,000 ML IV SCH ×4 (00:31→20:23)
[2023-02-08] MEDS: HYDROcodone/APAP 5-325MG 1 EACH TAB PO PRN (03:23)
[2023-02-08] MEDS: MELOXICAM 7.5 MG TAB PO SCH (08:40)
[2023-02-08] MEDS: FAMOTIDINE 20 MG TAB PO SCH ×2 (08:40→08:41)
[2023-02-08] MEDS: LOSARTAN-HCTZ 50-12.5 MG 1 EACH TAB PO SCH (08:41)
[2023-02-08] MEDS: HYDROcodone/APAP 7.5-325MG 1 EACH TAB PO PRN ×3 (08:41→20:22)
[2023-02-08] MEDS: CHOLECALCIFEROL 25 MCG (1000 IU) TABLET PO SCH (08:41)
[2023-02-08] MEDS: FOLIC ACID 1 MG TAB PO SCH (08:41)
[2023-02-08] MEDS: ENOXAPARIN 40 MG/0.4 ML SYRINGE SQ SCH (08:42)
[2023-02-08 09:38] LABS: Basophils # (A) 0.03 X 10*3/uL (0.00-0.10); Basophils % (A) 0.3 %; Eosinophils # (A) 0.02 X 10*3/uL (0.04-0.35); Eosinophils % (A) 0.2 %; HCT 32.6 % (39.6-50.0); HGB 10.2 g/dL (13.0-17.0); Lymphocytes % (A) 19.5 %; MCH 26.5 pg (27.0-32.0); MCHC 31.3 g/dL (32.0-37.0); MCV 84.7 FL (80.0-97.0); Mean Platelet Volume 8.8 FL (9.5-12.2); Monocytes # (A) 1.24 X 10*3/uL (0.20-1.00); NRBC Per 100 WBC 0 X 10*3/uL (0.00-0.01); Neutrophils # (A) 7.74 X 10*3/uL (1.80-7.70); Neutrophils % (A) 68.7 %; Platelet Count 472 X 10*3/uL (140-440); RBC 3.85 X 10*6/uL (4.40-5.60); RDW 15.8 % (11.5-14.5); WBC 11.26 X 10*3/uL (4.50-10.00)
--- NOTE | 2023-02-08 10:33 | P.PN ---
Subjective Progress Note Date: 02/08/23 Principal diagnosis: Right hip osteoarthritis Patient was seen at bedside this morning lying semirecumbent position with dressing over right hip. Patient says he has been doing well since surgery yesterday. Patient says she is hoping to go home later today. Patient says he does not have a walker for home. Patient says he has several steps into his house. Patient says his will be able to help once he goes home. Patient says he has not yet worked with physical therapy. Patient says he has urinated several times since surgery yesterday. Patient denies chest pain, fever, shortness breath, nausea, vomiting, change in vision, loss of bowel/bladder control. Objective - Vital Signs Vital signs: Vital Signs Temp 97.8 F 02/08/23 07:15 Pulse 54 L 02/08/23 07:15 Resp 17 02/08/23 07:15 BP 189/76 02/08/23 07:15 Pulse Ox 98 02/08/23 07:15 FiO2 Intake & Output 02/07/23 02/08/23 02/08/23 18:59 06:59 18:59 Intake Total 1251 Output Total 55 1220 Balance 1196 -1220 Weight 86.8 kg Intake: IV 1251 Output: Urine 1220 Estimated Blood Loss 55 Other: # Voids 1 - Exam Right hip: Incision is clean, dry, and intact. The silver foam dressing is in good condition. There is minimal soft tissue swelling and ecchymosis surrounding the medial and lateral aspects of the incision. Calf is soft, no tenderness with palpation. Plantar flexion, dorsiflexion, EHL, FHL are intact. Sensory exam to light touch throughout the extremity is intact, dorsal pedis pulses 2+. - Labs CBC & Chem 7: 02/08/23 05:22 Assessment and Plan Assessment: 1. Right hip osteoarthritis - Postoperative day #1 status post right total hip arthroplasty Plan: 1. Right hip osteoarthritis - right total hip arthroplasty performed yesterday, 01/07/2023. Patient stable at bedside this morning. Patient did work with physical therapy this morning. Recommendations are to keep patient for one more night for pain control and additional therapy. Planning for discharge home tomorrow with health services. 2. Appreciate medical management 3. Pain management - [place] 4. DVT prophylaxis - Xarelto 5. GI prophylaxis - senna 6. PT/OT - weightbearing as tolerated with walker 7. Encourage incentive spirometer use 8. Discharge planning - plan for discharge home tomorrow with health services. Time with Patient: Less than 30
[2023-02-08] MEDS ORDERED: MULTIVITAMINS, THERA 1 EACH TAB PO SCH (12:00)
--- NOTE | 2023-02-08 12:03 | P.CONS ---
History of Present Illness - Reason for Consult Consult date: 02/08/23 Medical management - Chief Complaint Right hip osteoarthritis status post direct anterior right total hip arthro - History of Present Illness This is a 57-year-old gentleman with past medical history significant for multiple medical issues including blood disorder;anemia, leukopenia, neutropenia, thrombocytosis , nicotine dependence, Right hip osteoarthritis status post direct anterior right total hip arthroplasty. Tolerated procedure well. Maintaining O2 sats in the high 90s on 2 L nasal cannula. Ambulating with in room, tolerated exertion well. PT/Stairs pending. Pain controlled. Passing flatus. Denies chest pain, palpitations or shortness of breath. Review of Systems Constitutional: Denied any fatigue denied any fever. Cardio vascular: denied any chest pain, palpitations Gastrointestinal denied any nausea vomiting Pulmonary: Denied any shortness of breath cough Neurologic denied any new focal deficits ROS Statement: Those systems with pertinent positive or pertinent negative responses have been documented in the HPI. ROS Other: All systems not noted in ROS Statement are negative. Past Medical History Past Medical History: Blood Disorder, Chest Pain / Angina, GERD/Reflux, Hyperli pidemia, Hypertension, Osteoarthritis (OA) Additional Past Medical History / Comment(s): Recent rectal bleed/colonoscopy with polypectomy, anemia, HEART murmur, 03/2021 pt had covid. History of Any Multi-Drug Resistant Organisms: None Reported Past Surgical History: Joint Replacement, Orthopedic Surgery Additional Past Surgical History / Comment(s): 09/24/21 colonoscopy/polypectomy, bilateral knee arthroscopies, ZAIRA TKA/post op I&D R knee incision. EGD, BONE MARROW BX Past Anesthesia/Blood Transfusion Reactions: No Reported Reaction Additional Past Anesthesia/Blood Transfusion Reaction / Comm: . Past Psychological History: No Psychological Hx Reported Additional Psychological History / Comment(s): Pt resides with his spouse and adult son. He is independent. Smoking Status: Current every day smoker Past Alcohol Use History: None Reported Additional Past Alcohol Use History / Comment(s): Pt started smoking in 1976 and has cut down to 1/2 ppd. Past Drug Use History: None Reported Additional Drug Use History / Comment(s): denies - Past Family History Mother Family Medical History: Cancer Additional Family Medical History / Comment(s): STOMACH Father Family Medical History: Cancer Additional Family Medical History / Comment(s): Unsure type of cancer. Medications and Allergies Home Medications Medication Instructions Recorded Confirmed Type Aspirin EC [Ecotrin Low Dose] 81 mg PO HS 09/30/21 02/01/23 History Cholecalciferol [Vitamin D3 (25 50 mcg PO DAILY tab 10/08/21 02/01/23 Rx Mcg = 1000 Iu)] Folic Acid 1 mg PO DAILY tab 10/08/21 02/01/23 Rx Famotidine 20 mg PO DAILY 02/09/22 02/01/23 History Atorvastatin [Lipitor] 10 mg PO HS 11/02/22 02/01/23 History Losartan-Hctz 50-12.5 mg [Hyzaar 1 tab PO DAILY 11/02/22 02/01/23 History 50-12.5] Copper 1 tab PO DAILY 02/01/23 History Ibuprofen [Motrin] 800 mg PO Q8H PRN 02/01/23 02/01/23 History Allergies Allergy/AdvReac Type Severity Reaction Status Date / Time No Known Allergies Allergy Verified 02/07/23 10:44 Physical Exam Vitals: Vital Signs Temp Pulse Resp BP BP Pulse Ox 02/08/23 07:15 97.8 F 54 L 17 189/76 98 02/08/23 01:53 98.3 F 60 160/68 96 02/07/23 19:30 54 L 18 174/91 97 02/07/23 19:02 50 L 181/79 95 02/07/23 18:47 47 L 168/89 95 02/07/23 18:32 49 L 185/78 97 02/07/23 18:17 46 L 147/75 95 02/07/23 18:02 97.8 F 48 L 168/71 97 02/07/23 16:16 55 L 16 184/87 95 02/07/23 16:00 65 16 188/91 95 02/07/23 15:41 60 18 167/80 95 02/07/23 15:26 63 18 166/81 95 02/07/23 15:11 98 F 102 H 20 144/81 95 02/07/23 12:50 52 L 16 160/74 98 Intake and Output 02/07/23 02/08/23 02/08/23 22:59 06:59 14:59 Intake Total 500 Output Total 1220 Balance 500 -1220 Intake: IV 500 Output: Urine 1220 Other: # Voids 1 Weight 86.8 kg GENERAL: Alert and oriented 3 ,Sitting up in bed,no acute distress. HEENT: Pupils round and equally reacting to light. EOMI. No scleral icterus. No conjunctival pallor. Normocephalic, atraumatic. CARDIOVASCULAR: S1 and S2 present. No murmurs, rubs, or gallops. PULMONARY: Respiratory effort normal, Chest is clear to auscultation, no wheezing or crackles. ABDOMEN: Soft, nontender, nondistended, normoactive bowel sounds. No palpable organomegaly. No guarding. EXTREMITIES: Right hip dressing clean dry and intact. No lower extremity edema, No cyanosis, clubbing, no calf tenderness. NEUROLOGICAL: Cranial nerves II-12 grossly intact, no focal deficits. SKIN: No rashes. Warm and dry. Results CBC & Chem 7: 02/08/23 05:22 Labs: Abnormal Lab Results - Last 24 Hours (Table) 02/08/23 Range/Units 05:22 WBC 11.26 H (4.50-10.00) X 10*3/uL RBC 3.85 L (4.40-5.60) X 10*6/uL Hgb 10.2 L (13.0-17.0) g/dL Hct 32.6 L (39.6-50.0) % MCH 26.5 L (27.0-32.0) pg MCHC 31.3 L (32.0-37.0) g/dL RDW 15.8 H (11.5-14.5) % Plt Count 472 H (140-440) X 10*3/uL MPV 8.8 L (9.5-12.2) FL Neutrophils # 7.74 H (1.80-7.70) X 10*3/uL Monocytes # 1.24 H (0.20-1.00) X 10*3/uL Eosinophils # 0.02 L (0.04-0.35) X 10*3/uL Assessment and Plan Assessment: Right hip osteoarthritis status post direct anterior right total hip arthroplasty History of normocytic normochromic moderate anemia, leukopenia with absolute neutropenia and moderate thrombocytosis,?AML GERD Chronic esophagitis Sliding hiatal hernia reported per EGD Bilateral extremity swelling hypoalbuminemia. sinus bradycardia, chronic,asymptomatic associated with right bundle branch block Hypertension Hyperlipidemia osteoarthritis History of alcohol use Nicotine dependence Plan: Continue on current medication regime, monitoring and symptomatic treatment. Wean off oxygen, patient maintaining O2 sats in the high 90s on 2 L nasal cannula does not wear O2 at home. Aggressive pulmonary toileting with incentive spirometer reinforced .Obtain O2 sat on room air after ambulation for discharge planning. A.m. antihypertensive administered, recheck blood pressure. Pain management/DVT prophylaxis as per primary. PT pending. Discharge planning in progress as per orthopedic surgery. The impression and plan of care has been dictated as directed. : I performed a history and examination of this patient, discussed the same with the dictator. I agree with the dictator's note ,documented as a scribe. Any additional findings or plans will be noted.
[2023-02-08] MEDS: ATORVASTATIN 10 MG TAB PO SCH (20:22)
[2023-02-08] MEDS: SENNOSIDES-DOCUSATE SODIUM 1 EACH TAB PO SCH (20:23)
[2023-02-09] MEDS: HYDROcodone/APAP 5-325MG 1 EACH TAB PO PRN ×2 (03:22→09:18)
[2023-02-09] MEDS: LACTATED RINGERS 1,000 ML IV SCH ×2 (06:35→07:32)
[2023-02-09] MEDS: FOLIC ACID 1 MG TAB PO SCH (07:56)
[2023-02-09] MEDS: FAMOTIDINE 20 MG TAB PO SCH ×2 (07:56→07:59)
[2023-02-09] MEDS: MELOXICAM 7.5 MG TAB PO SCH (07:56)
[2023-02-09] MEDS: ENOXAPARIN 40 MG/0.4 ML SYRINGE SQ SCH (07:58)
[2023-02-09] MEDS: LOSARTAN-HCTZ 50-12.5 MG 1 EACH TAB PO SCH (07:58)
[2023-02-09] MEDS: CHOLECALCIFEROL 25 MCG (1000 IU) TABLET PO SCH (07:59)
[2023-02-09 08:01] VITALS: BP 183/77; PULSE 60; RESP 17; TEMP 98
--- NOTE | 2023-02-09 09:46 | P.DS ---
Providers Date of admission: 02/08/23 12:56 Expected date of discharge: 02/09/23 Attending physician: Calvin Guerrero Consults: 02/07/23 14:59 Consult Physician Routine Consulting Provider: Amadou Ulrich Reason/Comments: Medical management Do you want consulting provider notified?: Yes Primary care physician: Amadou Ulrich Hospital Course: Date of admission: 02/07/2023 Date of discharge: 02/09/2023 Admission diagnosis: Right hip osteoarthritis Discharge diagnosis: Same Attending physician: Dr. Guerrero Surgical procedures: Right total hip arthroplasty Brief history: Patient is a with 57-year-old male with a history of progressive primary right hip osteoarthritis. At this point patient has failed conservative treatment measures and has opted to proceed with a elective right total hip arthroplasty. Hospital course: Details of patient's surgery can be found in operative report. Patient tolerated the procedure well and was subsequently transported to orthopedic floor. Patient's orthopeidc and medical care was provided daily. Patient had daily laboratory tests performed for evaluation of overall blood counts. Patient had daily physical therapy to include strengthening range of motion as well as education with walker ambulation. Patient was treated with Lovenox for their postoperative DVT prophylaxis during their inpatient stay. Patient was noted to have a relatively uneventful postoperative course. Patient reported satisfactory pain control with oral pain medications by postoperative day 2. Patient showed satisfactory progress with physical therapy. Patient moved steadily through the program and had no difficulty meeting the goals by postoperative day 2. Given patient's otherwise satisfactory course and having met physical therapy goals, plan is to discharge patient home with health services on postoperative day 2. Discharge condition/disposition: Patient will be discharged home with health services in stable condition. Discharge medications: Instructions are given on resumption of patient's normal daily medications per primary care recommendation, in addition patient will be prescribed Minford; senna; aspirin 81 mg twice a day 30 days. Discharge instructions: 1. Wound care and infection precautions, keep incision dry and covered while showering, no lotions, creams, moisturizers. No soaking, tubs, pools, hottubs. Do not scrub over the incision. 2. Weight-bear as tolerated with walker / cane until follow-up. 3. Ice and elevate when necessary. Do not exceed 20 minutes per hour with ice pack. 4. Utilize compression sleeve until seen at first follow up appointment. 5. Visiting nursing care. 6. Home physical therapy including home CPM. 7. Pain meds and anticoagulants per prescription. 8. Pain medication has potential to cause constipation. Increase oral fluid and fiber intake. Contact primary care provider if you have not had a bowel movement within 48 hours after discharge 9. No anti-inflammatory medication until discussed at first post operative visit, this including Motrin, Aleve, Mobic, Diclofenac. 10. Follow up in office at 2 weeks postop with Elgin Amato PA-C / Wilfrid Barrett PA-C 11. Follow up with your primary care doctor 7-10 days after discharge. 12. Contact [facility] with any questions, . Assessment: Right hip osteoarthritis Procedures: Right total hip arthroplasty Patient Condition at Discharge: Good Plan - Discharge Summary Discharge Rx Participant: Yes New Discharge Prescriptions: New HYDROcodone/APAP 7.5-325MG [Minford 7.5] 1 - 2 each PO Q6HR PRN #32 tab PRN Reason: Pain Sennosides/Docusate Sodium [Senna Plus 8.6-50 mg Softgel] 1 each PO DAILY #20 capsule Continue Aspirin EC [Ecotrin Low Dose] 81 mg PO BID No Action Cholecalciferol [Vitamin D3 (25 Mcg = 1000 Iu)] 50 mcg PO DAILY tab Ibuprofen [Motrin] 800 mg PO Q8H PRN PRN Reason: Pain Folic Acid 1 mg PO DAILY tab Famotidine 20 mg PO DAILY Losartan-Hctz 50-12.5 mg [Hyzaar 50-12.5] 1 tab PO DAILY Atorvastatin [Lipitor] 10 mg PO HS Copper 1 tab PO DAILY Discharge Medication List Aspirin EC [Ecotrin Low Dose] 81 mg PO BID 09/30/21 [History] Cholecalciferol [Vitamin D3 (25 Mcg = 1000 Iu)] 50 mcg PO DAILY tab 10/08/21 [Rx] Folic Acid 1 mg PO DAILY tab 10/08/21 [Rx] Famotidine 20 mg PO DAILY 02/09/22 [History] Atorvastatin [Lipitor] 10 mg PO HS 11/02/22 [History] Losartan-Hctz 50-12.5 mg [Hyzaar 50-12.5] 1 tab PO DAILY 11/02/22 [History] Copper 1 tab PO DAILY 02/01/23 [History] Ibuprofen [Motrin] 800 mg PO Q8H PRN 02/01/23 [History] HYDROcodone/APAP 7.5-325MG [Minford 7.5] 1 - 2 each PO Q6HR PRN #32 tab 02/09/23 [Rx] Sennosides/Docusate Sodium [Senna Plus 8.6-50 mg Softgel] 1 each PO DAILY #20 capsule 02/09/23 [Rx] Follow up Appointment(s)/Referral(s): [facility] [NON-STAFF] - As Needed (Walker) [facility], [NON-STAFF] - As Needed Italo Amato PAC [PHYSICIAN OFFICE TECHNICIAN] - 02/23/23 4:30 pm Patient Instructions/Handouts: Anterior Hip Replacement (DC), Anterior Hip Replacement (GEN) Activity/Diet/Wound Care/Special Instructions: Orthopedic Discharge Instructions: 1. Wound care and infection precautions, keep incision dry and covered while showering, no lotions, creams, moisturizers. No soaking, pools, hot tubs. Do not scrub over incision. 2. Weight-bear as tolerated with walker / cane until follow-up. 3. Ice and elevate when necessary. Do not exceed 20 minutes per hour with ice pack. 4. Utilize compression sleeve until seen at first follow up appointment. 5. Pain meds and anticoagulants per prescription. 6. Pain medication has potential to cause constipation. Increase oral fluid and fiber intake. Contact primary care provider if you have not had a bowel movement within 48 hours after discharge. 7. No anti-inflammatory medication until discussed at first post operative visit, this including Motrin, Aleve, Mobic, Diclofenac. 8. Follow up in office at 2 weeks postop with Elgin Amato PA-C / Wilfrid Barrett PA-C 9. Follow up with your primary care doctor 7-10 days after discharge. 10. Contact [facility] with any questions, . Keep incision clean, dry, intact. While showering, cover dressing with Saran wrap. Keep dressing on until 02/14/2023. Okay to remove dressing on 02/14/2023. It is okay to shower directly over incision once dressing is removed. Discharge Disposition: HOME WITH HOME HEALTH SERVICES
--- NOTE | 2023-02-09 09:49 | P.PN ---
Subjective Progress Note Date: 02/09/23 Principal diagnosis: Right hip osteoarthritis Patient was seen at bedside this morning lying semirecumbent position with dressing over right hip. Patient says he has been doing well since surgery. Patient says she is hoping to go home later today. Walker for home is present at bedside. Patient says he has several steps into his house. Patient says his will be able to help once he goes home. Patient says he has not yet worked with physical therapy today. Patient says he has urinated several times since surgery. Patient denies chest pain, fever, shortness breath, nausea, vomiting, change in vision, loss of bowel/bladder control. Objective - Vital Signs Vital signs: Vital Signs Temp 98.0 F 02/09/23 07:18 Pulse 60 02/09/23 07:18 Resp 17 02/09/23 07:18 BP 183/77 02/09/23 07:18 Pulse Ox 95 02/09/23 08:31 FiO2 Intake & Output 02/08/23 02/09/23 02/09/23 18:59 06:59 18:59 Other: Voiding Method Urinal # Voids 6 - Exam Right hip: Incision is clean, dry, and intact. The silver foam dressing is in good condition. There is minimal soft tissue swelling and ecchymosis surrounding the medial and lateral aspects of the incision. Calf is soft, no tenderness with palpation. Plantar flexion, dorsiflexion, EHL, FHL are intact. Sensory exam to light touch throughout the extremity is intact, dorsal pedis pulses 2+. - Labs CBC & Chem 7: 02/08/23 05:22 Assessment and Plan Assessment: 1. Right hip osteoarthritis - Postoperative day #2 status post right total hip arthroplasty Plan: 1. Right hip osteoarthritis - right total hip arthroplasty performed 01/07/2023. Patient stable at bedside this morning. Patient did not work with physical therapy yet this morning. Pending PT/OT evaluation, plan for discharge home later today with health services. 2. Appreciate medical management 3. Pain management - [place] 4. DVT prophylaxis - Xarelto 5. GI prophylaxis - senna 6. PT/OT - weightbearing as tolerated with walker 7. Encourage incentive spirometer use 8. Discharge planning - plan for discharge home later today with health services. Time with Patient: Less than 30
--- NOTE | 2023-02-09 13:38 | P.PN ---
Subjective Progress Note Date: 02/09/23 - History of Present Illness 02/08/23 This is a 57-year-old gentleman with past medical history significant for multiple medical issues including blood disorder;anemia, leukopenia, n eutropenia, thrombocytosis , nicotine dependence, Right hip osteoarthritis status post direct anterior right total hip arthroplasty. Tolerated procedure well. Maintaining O2 sats in the high 90s on 2 L nasal cannula. Ambulating with in room, tolerated exertion well. PT/Stairs pending. Pain controlled. Passing flatus. Denies chest pain, palpitations or shortness of breath. 02/09/2023 PT today ,pending. Pain better controlled. Passing flatus. Denies chest pain, palpitations or shortness of breath. Maintaining O2 sats in the high 90s on room air. Eager for discharge home today. Objective - Vital Signs Vital signs: Vital Signs Temp 98.0 F 02/09/23 07:18 Pulse 60 02/09/23 07:18 Resp 17 02/09/23 07:18 BP 183/77 02/09/23 07:18 Pulse Ox 95 02/09/23 08:31 FiO2 Intake & Output 02/08/23 02/09/23 02/09/23 18:59 06:59 18:59 Other: Voiding Method Urinal # Voids 6 - Exam GENERAL: Alert and oriented 3 ,Sitting up in bed,no acute distress. HEENT: Normocephalic, Pupils round and equally reacting to light.MMM. CARDIOVASCULAR: S1 and S2 present. No murmurs, rubs, or gallops. PULMONARY: Unlabored, equal air entry, clear to auscultation. ABDOMEN: Soft, nontender, nondistended, normoactive bowel sounds. EXTREMITIES: Right hip dressing clean dry and intact. No lower extremity edema, No cyanosis, clubbing, no calf tenderness. NEUROLOGICAL: Cranial nerves II-12 grossly intact, no focal deficits. SKIN: No rashes. Warm and dry. - Labs CBC & Chem 7: 02/08/23 05:22 Assessment and Plan Assessment: Right hip osteoarthritis status post direct anterior right total hip arthroplasty History of normocytic normochromic moderate anemia, leukopenia with absolute neutropenia and moderate thrombocytosis,?AML GERD Chronic esophagitis Sliding hiatal hernia reported per EGD Bilateral extremity swelling hypoalbuminemia. sinus bradycardia, chronic,asymptomatic associated with right bundle branch block Hypertension Hyperlipidemia osteoarthritis History of alcohol use Nicotine dependence Plan: Continue on current medication regime, monitoring and symptomatic treatment. Repeat blood pressure ordered, pending. Maintain aggressive pulmonary toileting with incentive spirometer reinforced. Pain management/DVT prophylaxis as per primary. Follow-up with PCP in one week. The impression and plan of care has been dictated as directed. : I performed a history and examination of this patient, discussed the same with the dictator. I agree with the dictator's note ,documented as a scribe. Any additional findings or plans will be noted.
== END 2023-02-09 12:13 | disposition home health service (06) ==
LOC: OR 10:17 → 4SSUR 15:11 → OR 02-08 12:56 → 4SSUR 02-08 12:56
PROVIDERS: ADMIT Orthopaedic Surgery; ATTEND Orthopaedic Surgery
DX: M16.11 Unilateral primary osteoarthritis, right hip (principal); I10 Essential (primary) hypertension; E78.5 Hyperlipidemia, unspecified; I45.10 Unspecified right bundle-branch block; R00.1 Bradycardia, unspecified; K21.9 Gastro-esophageal reflux disease without esophagitis; K44.9 Diaphragmatic hernia without obstruction or gangrene; E88.09 Other disorders of plasma-protein metabolism, not elsewhere classified; D64.9 Anemia, unspecified; D70.9 Neutropenia, unspecified; D75.839 Thrombocytosis, unspecified; R73.03 Prediabetes; R22.43 Localized swelling, mass and lump, lower limb, bilateral; F17.210 Nicotine dependence, cigarettes, uncomplicated; Z79.82 Long term (current) use of aspirin; Z79.899 Other long term (current) drug therapy; Z86.010 Personal history of colon polyps; Z86.16 Personal history of COVID-19; Z87.19 Personal history of other diseases of the digestive system; Z96.653 Presence of artificial knee joint, bilateral; Z98.890 Other specified postprocedural states; Z80.0 Family history of malignant neoplasm of digestive organs
CPT/HCPCS: 27130; 96372 ×2; 94760 ×2; 97116; 97162; 64447; 85025; 73501; G0378 ×2; C1776; J2250; J0330; J1100; J0690 ×3; J2405; J1650 ×2; J3010; J1170 ×3; J2795; J2704

== ENCOUNTER → 2023-05-16 | Outpatient (CLI) | payer OTHER ==
--- NOTE | 2023-05-17 09:34 | NM ---
EXAMINATION TYPE: NM bone 3 phase DATE OF EXAM: 05/16/2023 COMPARISON: Radiograph 01/28/2023 CLINICAL INDICATION: Male, 57 years old with history of M25.562 PAIN IN LEFT KNEE; Technique: Triple phase bone scintigraphy was performed following the injection of 21.3 mCi Tc 99m MD P. Immediate images and 5 hours post injection images acquired. Imaging centered at the bilateral kn ees. FINDINGS: Flow images show no asymmetric hyperemia at either knee. Limited axial symmetric appearance bilaterally. Delayed scan shows photopenic areas in both knees leading to bilateral total knee arthroplasties. No significant abnormal increased activity on either side. The hips are included on the delayed scan. There is prominent degenerative tracer activity at the lef t hip. Photopenia related to the patient's prior right hip total arthroplasty. There is some focal in creased activity of the patient's right greater trochanter and superolateral margin of the acetabular cup component. IMPRESSION: 1. No scintigraphic evidence for hardware loosening at the left total knee arthroplasty. 2. Prominent degenerative tracer activity at the left hip. 3. Underlying right hip total arthroplasty with some nonspecific focal activity at the greater trocha nter and also superolateral margin of the acetabular cup component. Findings may be postsurgical or p osttraumatic. No specific abnormality was seen on the patient's 05/04/2023 radiograph. Consider short i nterval follow-up radiograph.
== END | disposition home or self-care (01) ==
LOC: RADNMMAIN 07:30
PROVIDERS: ATTEND Orthopaedic Surgery
DX: M25.562 Pain in left knee (principal); Z96.641 Presence of right artificial hip joint
CPT/HCPCS: 78315; A9503

== ENCOUNTER → 2023-06-09 | Outpatient (CLI) | payer OTHER ==
[2023-06-09 18:08] LABS: Basophils # (A) 0.07 X 10*3/uL (0.00-0.10); Basophils % (A) 0.7 %; Eosinophils # (A) 0.29 X 10*3/uL (0.04-0.35); Eosinophils % (A) 2.9 %; HCT 47.6 % (39.6-50.0); HGB 14.5 g/dL (13.0-17.0); Lymphocytes # (A) 2.39 X 10*3/uL (0.90-5.00); Lymphocytes % (A) 24.1 %; MCH 25.7 pg (27.0-32.0); MCHC 30.5 g/dL (32.0-37.0); MCV 84.2 FL (80.0-97.0); Mean Platelet Volume 8.7 FL (9.5-12.2); Monocytes # (A) 0.57 X 10*3/uL (0.20-1.00); Monocytes % (A) 5.7 %; NRBC Per 100 WBC 0 X 10*3/uL (0.00-0.01); Neutrophils # (A) 6.57 X 10*3/uL (1.80-7.70); Neutrophils % (A) 66.3 %; Platelet Count 590 X 10*3/uL (140-440); RBC 5.65 X 10*6/uL (4.40-5.60); RDW 15.7 % (11.5-14.5); WBC 9.92 X 10*3/uL (4.50-10.00)
[2023-06-09 18:20] LABS: INR 1.02 sec (0.93-1.11)
[2023-06-09 18:58] LABS: Blood Urea Nitrogen 15.2 mg/dL (9.0-27.0); Calcium 9.7 mg/dL (8.7-10.3); Carbon Dioxide 22.4 mmol/L (21.6-31.8); Chloride 102 mmol/L (96-109); Glucose 127 mg/dL (70-110); Potassium 4.9 mmol/L (3.5-5.5); Sodium 135 mmol/L (135-145)
== END | disposition home or self-care (01) ==
LOC: LABWHC1 09:50
PROVIDERS: ATTEND Orthopaedic Surgery
DX: Z01.812 Encounter for preprocedural laboratory examination (principal); M16.12 Unilateral primary osteoarthritis, left hip; Z22.322 Carrier or suspected carrier of Methicillin resistant Staphylococcus aureus
CPT/HCPCS: 36415; 80048; 85025; 85610; 86850; 86900; 86901; 87070

== ENCOUNTER 2023-06-20 05:37 | Observation (INO) | payer OTHER ==
--- NOTE | 2023-06-19 12:39 | HP ---
HISTORY AND PHYSICAL DATE OF SURGERY: 06/20/2023. HISTORY OF PRESENT ILLNESS: Jeancarlos Carreno is a 57-year-old gentleman seen with symptomatic left hip osteoarthritis. We discussed options regarding treatment. He elected to proceed with direct anterior left total hip arthroplasty. Consents obtained. PAST MEDICAL HISTORY: Hyperlipidemia and hypertension. PAST SURGICAL HISTORY: Left total knee arthroplasty and right total hip arthroplasty. DAILY MEDICATIONS: 1. Losartan. 2. Lipitor. 3. Vitamins. 4. Ibuprofen. ALLERGIES: None. SOCIAL HISTORY: He denies tobacco use. PHYSICAL EVALUATION OF THE LEFT HIP: He has limited range of motion with severe pain. Positive hip impingement sign. Straight-leg raise is negative. Distal neurovascular exam is intact. RADIOGRAPHS: Left hip reveal severe osteoarthritic changes. IMPRESSION: 1. Left hip osteoarthritis. 2. Hypertension. 3. Hyperlipidemia. PLAN: Direct anterior left total hip arthroplasty. MMODL / IJN: [id number] /
[~2023-06-20 05:37] MED LIST changes: -ACETAMINOPHEN TAB 500 MG TAB PO PRN; -DEXAMETHASONE SOD PHOSPHATE 4 MG/ML 1 ML VIAL IV ONE; -HYDROmorphone 0.5 MG/0.5 ML SYRINGE IVP PRN; -LIDOCAINE 1% (10MG/ML) FOR IV START INTRADERMA PRN; -MELOXICAM 7.5 MG TAB PO PRN; -ONDANSETRON 4 MG/2 ML VIAL IVP ONE; -droPERidol 5 MG/2 ML VIAL IVP ONE
[2023-06-20 06:34] LABS: Glucose,Whole Blood 90 mg/dL (70-110)
[2023-06-20] MEDS: ACETAMINOPHEN TAB 500 MG TAB PO PRN (06:40)
[2023-06-20] MEDS: MELOXICAM 7.5 MG TAB PO PRN (06:40)
[2023-06-20] MEDS: LACTATED RINGERS 1,000 ML IV SCH ×2 (06:40→13:11)
[2023-06-20] MEDS: ONDANSETRON 4 MG/2 ML VIAL IVP ONE (06:40)
[2023-06-20] MEDS: DEXAMETHASONE SOD PHOSPHATE 4 MG/ML 1 ML VIAL IV ONE (06:40)
[2023-06-20] MEDS: MIDAZOLAM 2 MG/2 ML VIAL IV PRN (06:54)
[2023-06-20] MEDS ORDERED: TRANEXAMIC 1,000 MG/100ML-NACL PREMIX BAG ONE (07:28)
[2023-06-20] MEDS ORDERED: MIDAZOLAM 2 MG/2 ML VIAL ONE (07:28)
[2023-06-20] MEDS ORDERED: NEOSTIGMINE 1 MG/ML 10 ML VIAL ONE (07:28)
[2023-06-20] MEDS ORDERED: fentaNYL (PF) 50 MCG/ML 2 ML AMP ONE (07:28)
[2023-06-20] MEDS ORDERED: DEXAMETHASONE SOD PHOSPHATE 4 MG/ML 1 ML VIAL ONE (07:28)
[2023-06-20] MEDS ORDERED: LIDOCAINE 1% INJ 10MG/ML (20 ML MDV) ONE (07:28)
[2023-06-20] MEDS ORDERED: GLYCOPYRROLATE 0.2 MG/ML 2 ML VIAL ONE (07:28)
[2023-06-20] MEDS ORDERED: ROCURONIUM 10 MG/ML (5 ML VIAL) IV ONE (07:28)
[2023-06-20] MEDS ORDERED: ROPIVACAINE 5 MG/ML 30 ML VIAL ONE (07:28)
[2023-06-20] MEDS ORDERED: PROPOFOL 10 MG/ML 20 ML VIAL IV ONE (07:28)
[2023-06-20] MEDS ORDERED: SUCCINYLCHOLINE CHLORIDE 200 MG/10 ML VIAL IV ONE (07:28)
[2023-06-20] MEDS: ceFAZolin 1,000 MG in SODIUM CHLORIDE 0.9% 1,000 ML IRRIGATION ONE (07:30)
--- NOTE | 2023-06-20 08:30 | P.ANPRN ---
Procedure Note - Anesthesia - Nerve Block Performed Left Richard Single Time Out Performed: Yes Date of Procedure: 06/20/23 Procedure Start Time: 06:53 Procedure Stop Time: 06:59 Location of Patient: PreOp Indication: Acute Post-Operative Pain, Requested by Surgeon Sedation Type: Sedate with meaningful contact maintained Preparation: Sterile Prep Position: Supine Needle Types: Pajunk Needle Gauge: 21 Ultrasound used to visualize needle placement: Yes Ultrasound used to observe medication spread: Yes Injectate: 0.5% Ropivacaine (see comment for volume) (Ropivacaine 0.5% 30 ml + 4 mg Dexamethasone) Blood Aspirated: No Pain Paresthesia on Injection Noted: No Resistance on Injection: Normal Image Stored and Saved: Yes Events: Uneventful and Well Tolerated
[2023-06-20] MEDS: LACTATED RINGERS 1,000 ML IV ONE (08:59)
[2023-06-20] MEDS ORDERED: NALOXONE 0.4 MG/ML 1 ML VIAL IV PRN (09:08)
[2023-06-20] MEDS ORDERED: HYDROmorphone 0.5 MG/0.5 ML SYRINGE IVP PRN (09:08)
[2023-06-20] MEDS ORDERED: ONDANSETRON 4 MG/2 ML VIAL IVP PRN (09:08)
[2023-06-20] MEDS ORDERED: HYDROcodone/APAP 5-325MG 1 EACH TAB PO PRN (09:08)
--- NOTE | 2023-06-20 09:08 | P.OP ---
Date of Procedure: 06/20/23 Preoperative Diagnosis: Left hip osteoarthritis Postoperative Diagnosis: Left hip osteoarthritis Procedure(s) Performed: Direct anterior left total hip arthroplasty Implants: 1. DePuy Corail size 16 offset collared press-fit femoral stem 2. DePuy Pacifica 52 mm press-fit acetabular shell 3. DePuy Pacifica neutral polyethylene acetabular liner 36 mm ID 52 mm OD 4. Biolox delta ceramic femoral head +1.5 36 mm Anesthesia: GETA, regional (Erector spinae block) Surgeon: Calvin Guerrero Hair Or Beauty Salon Manager #1: Italo mAato Estimated Blood Loss (ml): 65 Pathology: none sent Condition: stable Disposition: PACU Indications for Procedure: 57-year-old patient seen with symptomatic left hip osteoarthritis. After treatment options were discussed, he elected to proceed with direct anterior left total hip arthroplasty. Operative Findings: See description of procedure Description of Procedure: The patient was taken to the operative suite. Patient underwent a general anesthetic by the department of anesthesia. Patient was then transferred to the [place] table. Patient was given preoperative IV antibiotics and TXA. Both lower extremities were placed in standard leg spars. The hip was then prepped and draped in the normal sterile orthopedic fashion. A standard anterior incision was made beginning 3 cm lateral and 1 cm distal to the ASIS extending 10 cm. Dissection was then carried down through the subcutaneous soft tissues down to the fascia overlying the tensor fascia judith. An incision was now made through the fascia. Careful dissection was taken down exposing the tensor fascia judith muscle. A Cobra retractor was now placed along the medial femoral neck and a second one along the lateral femoral neck. The venous circumflex vessels were now identified, cauterized and clipped. We identified the anterior hip capsule. An incision was made through the hip capsule along the lateral border. I performed a partial anterior capsulectomy. Retractors were now placed around the femoral neck itself. A femoral neck cut was now made with a sagittal saw. It was completed with an osteotome at the lateral neck area. The femoral head was now removed without difficulty. The extremity was now rotated to 60 of external rotation. It was locked in position. Residual labrum was now debrided out. Serial reaming was performed of the acetabulum while Elgin ORR assisted holding an anterior retractor for exposure. Once we reached the appropriate size and a trial was position and fit nicely. The appropriate size was now chosen opened and made available. It was introduced into the acetabulum without difficulty. The C-arm/fluoroscopy was now brought into the operative field. We made sure we had a true AP pelvic view. We now under direct C-arm/fluoroscopy introduced into the acetabular component with appropriate version and inclination. I held the cup in appropriate position well Elgin ORR used a mallet to seat the acetabular component. I noted the component now to be well seated and stable. Acetabular cup introduce her was removed. The C-arm was pulled back. An appropriate liner was introduced and clicked into position. It was felt to be stable. At this point retractors were removed. The extremity was now placed into 130 external rotation with no traction. The leg was now dropped to the ground and adducted. Appropriate retractors were now positioned along the proximal femur. We also placed our femoral look into position. Additional capsular releasing was performed to gain access to the proximal femur. We now used a box osteotome. A canal finder was now utilized. Serial broaching was now performed with the assistance of Elgin ORR tapping the broaches down with a mallet while held the broach in appropriate rotation and position. This was done until we reached the appropriate size with good overall rotational stability. Appropriate calcar planing was performed. A trial head/neck was placed into position. The hip was now reduced. The C- arm/fluoroscopy was brought back into the operative field. I obtained an AP pelvis was demonstrated adequate leg length alignment. The trial components appeared adequately sized and positioned. The C-arm/fluoroscopy was pulled back. Retractors were repositioned and the hip was dislocated. The leg was again taken down to the ground and adducted. Appropriate retractors were repositioned as well as the femoral hook. All trial components were removed. The femoral implant was opened along with the femoral head. The femoral implant was introduced on the appropriate handle into our pre-broached area. I held the component position well Elgin ORR used a mallet to seat the femoral component. The femoral component was now noted to be well seated and stable.. The femoral head was introduced with good positioning and fixation noted. Retractors were now removed. The hip was now reduced. There appeared be good positioning of the hip confirmed on intraoperative fluoroscopy. Spot films were obtained to document this. A second gram of TXA was given. Bipolar cautery had been utilized intermittently through the procedure for hemostasis. The wound was irrigated copiously with pulse lavage mechanical irrigation. The fascia was repaired with Vicryl suture. The subcutaneous soft tissues were repaired in layers with Vicryl suture. The skin was approximated with pernio/Dermabond. Sterile dressings were applied. Patient was then awakened, transferred to a bed and taken to recovery in stable condition. Elgin ORR assisted with the complex procedure.
[2023-06-20] MEDS: HYDROmorphone 0.5 MG/0.5 ML SYRINGE IVP PRN (09:48)
--- NOTE | 2023-06-20 11:12 | FL ---
Fluoroscopy INDICATION: Pain FINDINGS: Fluoroscopy time: 14 seconds. Total dose area product (DAP) in uGy*m?, mGy*cm? (or similar): 0.5118 Images obtained: 0. IMPRESSION: 1. Documentation of fluoroscopy.
--- NOTE | 2023-06-20 11:15 | XR ---
Fluoroscopy INDICATION: Pain, hip replacement FINDINGS: Fluoroscopy time: 15.6 seconds. Total dose area product (DAP) in uGy*m?, mGy*cm? (or similar): 0.5118 Images obtained: 3. IMPRESSION: 1. Documentation of fluoroscopy.
[2023-06-20] MEDS: SCOPOLAMINE 1 MG/72 HR PATCH TRANSDERM ONE (13:10)
[2023-06-20] MEDS: LOSARTAN-HCTZ 50-12.5 MG 1 EACH TAB PO SCH (13:12)
[2023-06-20] MEDS: HYDROcodone/APAP 7.5-325MG 1 EACH TAB PO PRN (16:07)
[2023-06-20] MEDS: NICOTINE 14MG/24HR PATCH TRANSDERM SCH (16:08)
[2023-06-20] MEDS: HYDROmorphone 1 MG/ML 1 ML SYRINGE IVP PRN (18:00)
--- NOTE | 2023-06-20 19:48 | CONS ---
CONSULTATION REASON FOR CONSULTATION: Advice regarding hypertension, and other medical issues, requested by Orthopedic Surgery. HISTORY OF PRESENT ILLNESS: This is a 57-year-old gentleman with a past medical history of GERD, hypertension, hyperlipidemia, GI bleed, was admitted after left hip arthroplasty. There is no history of any fever, or rigors. No history of headache, loss of consciousness. Blood pressure is slightly elevated. PAST MEDICAL HISTORY: Hypertension, hyperlipidemia. Rest of the history and rest of the chart is also reviewed. HOME MEDICATIONS: Reviewed include losartan. Dose and rest of medications reviewed. ALLERGIES: None. FAMILY HISTORY: History of stomach cancer. SOCIAL HISTORY: History of smoking. REVIEW OF SYSTEMS: A 14-point review is negative except as mentioned earlier. PHYSICAL EXAMINATION: VITAL SIGNS: Pulse is 70, blood pressure 143/81, respirations 16. HEENT: Conjunctivae normal. NECK: No JVD. CARDIOVASCULAR: S1, S2. RESPIRATIONS: Breath sounds diminished at the bases. No rhonchi. No crackles. ABDOMEN: Soft, nontender. LEGS: No edema. Status post hip arthroplasty. NERVOUS SYSTEM: Nonfocal. LABORATORY DATA: Glucose 90. ASSESSMENT: 1. Status post left hip arthroplasty. 2. Gastroesophageal reflux disease. 3. Hypertension. 4. Hyperlipidemia. 5. History of gastrointestinal bleed. 6. History of polypectomy recently. 7. History of nicotine dependence. RECOMMENDATIONS AND DISCUSSION: This 57-year-old gentleman presented after surgery. At this time, I recommend to continue current medications. Resume the home medications. Monitor blood pressure closely. DVT prophylaxis. Incentive spirometry. I would also recommend smoking cessation. We will follow the patient closely with you and the patient may be asked to follow up with primary physician closely after discharge. MMODL / IJN: [id number] /
[2023-06-20] MEDS: ATORVASTATIN 10 MG TAB PO SCH (22:05)
[2023-06-20] MEDS: SENNOSIDES-DOCUSATE SODIUM 1 EACH TAB PO SCH (22:06)
[2023-06-21 01:57] VITALS: TEMP 98
[2023-06-21] MEDS: HYDROmorphone 0.5 MG/0.5 ML SYRINGE IVP PRN (07:21)
[2023-06-21 07:31] VITALS: BP 131/75; PULSE 67
[2023-06-21 08:08] VITALS: RESP 18
[2023-06-21] MEDS: MULTIVITAMINS, THERA 1 EACH TAB PO SCH (08:09)
[2023-06-21] MEDS: FAMOTIDINE 20 MG TAB PO SCH (08:09)
[2023-06-21] MEDS: FOLIC ACID 1 MG TAB PO SCH (08:09)
[2023-06-21] MEDS: CHOLECALCIFEROL 25 MCG (1000 IU) TABLET PO SCH (08:09)
[2023-06-21] MEDS: ENOXAPARIN 40 MG/0.4 ML SYRINGE SQ SCH (08:09)
[2023-06-21 08:31] LABS: Basophils # (A) 0.03 X 10*3/uL (0.00-0.10); Basophils % (A) 0.3 %; Eosinophils # (A) 0.04 X 10*3/uL (0.04-0.35); Eosinophils % (A) 0.4 %; HCT 36.8 % (39.6-50.0); HGB 11.5 g/dL (13.0-17.0); Lymphocytes # (A) 3.12 X 10*3/uL (0.90-5.00); MCH 26.1 pg (27.0-32.0); MCHC 31.3 g/dL (32.0-37.0); MCV 83.6 FL (80.0-97.0); Mean Platelet Volume 9.5 FL (9.5-12.2); Monocytes # (A) 1.38 X 10*3/uL (0.20-1.00); Monocytes % (A) 12.8 %; NRBC Per 100 WBC 0 X 10*3/uL (0.00-0.01); Neutrophils # (A) 6.17 X 10*3/uL (1.80-7.70); Neutrophils % (A) 57.2 %; Platelet Count 429 X 10*3/uL (140-440); RDW 15.5 % (11.5-14.5); WBC 10.77 X 10*3/uL (4.50-10.00)
--- NOTE | 2023-06-21 12:54 | P.PN ---
Subjective Progress Note Date: 06/21/23 Principal diagnosis: Status post direct anterior left total hip arthroplasty Patient evaluated at bedside today, his is also present. He is doing very well with his recovery thus far. He was able to ambulate the halls with the assistance of a walker, he did stairs with physical therapy. He has been urinating with no issues. He denies any headaches, lightheadedness, chest pain or shortness of breath Objective - Vital Signs Vital signs: Vital Signs Temp 98.0 F 06/21/23 07:16 Pulse 67 06/21/23 07:16 Resp 18 06/21/23 08:00 BP 131/75 06/21/23 07:16 Pulse Ox 96 06/21/23 07:16 FiO2 Intake & Output 06/20/23 06/21/23 06/21/23 18:59 06:59 18:59 Intake Total 1801 1010 350 Output Total 265 400 Balance 1536 1010 -50 Weight 89.81 kg Intake: IV 1501 Intake, IV Titration 1010 Amount Lactated Ringers 1,000 ml 960 @ 80 mls/hr IV .[id number] [facility] Rx#:[id number] ceFAZolin 2 gm In Sodium 50 Chloride 0.9% 50 ml @ 100 mls/hr IVPB ONCE PRN Rx# :[id number] Oral 300 350 Output: Urine 200 400 Estimated Blood Loss 65 Other: Voiding Method Toilet Toilet Urinal Urinal # Voids 2 700 700 - Exam Left lower extremity: Incision is clean, dry, and intact. The foam dressing is in good condition. There is minimal soft tissue swelling and ecchymosis surrounding the medial and lateral aspects of the incision. Calf is soft, no tenderness with palpation. Plantar flexion, dorsiflexion, EHL, FHL are intact. Sensory exam to light touch throughout the extremity is intact, dorsal pedis pulses 2+. - Labs CBC & Chem 7: 06/21/23 05:14 Labs: Abnormal Lab Results - Last 24 Hours (Table) 06/21/23 Range/Units 05:14 WBC 10.77 H (4.50-10.00) X 10*3/uL Hgb 11.5 L (13.0-17.0) g/dL Hct 36.8 L (39.6-50.0) % MCH 26.1 L (27.0-32.0) pg MCHC 31.3 L (32.0-37.0) g/dL RDW 15.5 H (11.5-14.5) % Monocytes # 1.38 H (0.20-1.00) X 10*3/uL Assessment and Plan Assessment: Postoperative day #1 status post direct anterior left total hip arthroplasty Plan: Pain control, plan for discharge home on [place] 7.5 mg / 325 mg DVT prophylaxis, aspirin 81 mg twice daily for 30 days Wound care instructions discussed, this to include icing elevating, showering and bandage removal Home PT/OT Medical recommendations appreciated Discharge planning: Patient stable for discharge home today Time with Patient: Less than 30
--- NOTE | 2023-06-21 12:57 | P.DS ---
Providers Date of admission: 06/21/23 10:50 Expected date of discharge: 06/21/23 Attending physician: Calvin Guerrero Consults: 06/20/23 09:08 Consult Physician Routine Consulting Provider: Amadou Ulrich Reason/Comments: Medical management Do you want consulting provider notified?: Yes Primary care physician: Amadou Ulrich [facility] Course: Date of admission: 06/20/2023 Date of discharge: 06/21/2023 Admission diagnosis: Status post direct anterior left total hip arthroplasty Discharge diagnosis: Same Attending physician: Dr. Guerrero Surgical procedures: Direct anterior left total hip arthroplasty Brief history: Patient is a 57-year-old male with a history of progressive primary left hip osteoarthritis. At this point patient has failed conservative treatment measures and has opted to proceed with a elective direct anterior left total hip arthroplasty. Hospital course: Details of patient's surgery can be found in operative report. Patient tolerated the procedure well and was subsequently transported to orthopedic floor. Patient's orthopeidc and medical care was provided daily. Patient had daily laboratory tests performed for evaluation of overall blood counts. Patient had daily physical therapy to include strengthening range of motion as well as education with walker ambulation. Patient was treated with Lovenox for their postoperative DVT prophylaxis during their inpatient stay. Patient was noted to have a relatively uneventful postoperative course. Patient reported satisfactory pain control with oral pain medications by postoperative day 0. Patient showed satisfactory progress with physical therapy. Patient moved steadily through the program and had no difficulty meeting the goals by postoperative day 1. Given patient's otherwise satisfactory course and having met physical therapy goals, plan is to discharge patient home on postoperative day 1. Discharge condition/disposition: Patient will be discharged home in stable condition. Discharge medications: Instructions are given on resumption of patient's normal daily medications per primary care recommendation, in addition patient will be prescribed [place] 7.5 mg / 325 mg, aspirin 81 mg. Discharge instructions: 1. Wound care and infection precautions, keep incision dry and covered while showering, no lotions, creams, moisturizers. No soaking, tubs, pools, hottubs. Do not scrub over the incision. 2. Weight-bear as tolerated with walker / cane until follow-up. 3. Ice and elevate when necessary. Do not exceed 20 minutes per hour with ice pack. 4. Utilize compression sleeve until seen at first follow up appointment. 5. Visiting nursing care. 6. Home physical therapy. 7. Pain meds and anticoagulants per prescription. 8. Pain medication has potential to cause constipation. Increase oral fluid and fiber intake. Contact primary care provider if you have not had a bowel movement within 48 hours after discharge 9. No anti-inflammatory medication until discussed at first post operative visit, this including Motrin, Aleve, Mobic, Diclofenac. 10. Follow up in office at 2 weeks postop with Elgin Amato PA-C/Wilfrid Rudd 11. Follow up with your primary care doctor 7-10 days after discharge. 12. Contact [facility] with any questions, . Procedures: Direct anterior left total hip arthroplasty Patient Condition at Discharge: Good Plan - Discharge Summary Discharge Rx Participant: Yes New Discharge Prescriptions: New HYDROcodone/APAP 7.5-325MG [[place] 7.5] 1 each PO Q6HR PRN #28 tab PRN Reason: Pain No Action Cholecalciferol [Vitamin D3 (25 Mcg = 1000 Iu)] 50 mcg PO DAILY tab Aspirin EC [Ecotrin Low Dose] 81 mg PO BID Folic Acid 1 mg PO DAILY tab Losartan-Hctz 50-12.5 mg [Hyzaar 50-12.5] 1 tab PO DAILY Atorvastatin [Lipitor] 10 mg PO HS Copper 1 tab PO DAILY Discharge Medication List Aspirin EC [Ecotrin Low Dose] 81 mg PO BID 09/30/21 [History] Cholecalciferol [Vitamin D3 (25 Mcg = 1000 Iu)] 50 mcg PO DAILY tab 10/08/21 [Rx] Folic Acid 1 mg PO DAILY tab 10/08/21 [Rx] Atorvastatin [Lipitor] 10 mg PO HS 11/02/22 [History] Losartan-Hctz 50-12.5 mg [Hyzaar 50-12.5] 1 tab PO DAILY 11/02/22 [History] Copper 1 tab PO DAILY 02/01/23 [History] HYDROcodone/APAP 7.5-325MG [[place] 7.5] 1 each PO Q6HR PRN #28 tab 06/21/23 [Rx] Follow up Appointment(s)/Referral(s): [facility], [NON-STAFF] - As Needed Italo Amato PAC [PHYSICIAN [employer]] - 2 Weeks Activity/Diet/Wound Care/Special Instructions: Orthopedic Discharge Instructions: 1. Wound care and infection precautions, keep incision dry and covered while showering, no lotions, creams, moisturizers. No soaking, pools, hot tubs. Do not scrub over incision. 2. Weight-bear as tolerated with walker / cane until follow-up. 3. Ice and elevate when necessary. Do not exceed 20 minutes per hour with ice pack. 4. Utilize compression sleeve until seen at first follow up appointment. 5. Pain meds and anticoagulants per prescription. 6. Pain medication has potential to cause constipation. Increase oral fluid and fiber intake. Contact primary care provider if you have not had a bowel movement within 48 hours after discharge. 7. No anti-inflammatory medication until discussed at first post operative visit, this including Motrin, Aleve, Mobic, Diclofenac. 8. Follow up in office at 2 weeks postop with Elgin Amato PA-C/Wilfrid Barrett PA-C 9. Follow up with your primary care doctor 7-10 days after discharge. 10. Contact [facility] with any questions, . Wound care instructions: 1. Okay to remove surgical dressing as of 06/27/2023 2. After removal of dressing, okay to shower directly over incision Discharge Disposition: HOME WITH HOME HEALTH SERVICES
--- NOTE | 2023-06-22 03:30 | PN ---
PROGRESS NOTE DATE OF SERVICE: 06/21/2023 SUBJECTIVE: This is a 57-year-old gentleman who was admitted after left hip arthroplasty, is improving significantly. No chest pain. No palpitations. No fever. OBJECTIVE: VITAL SIGNS: Pulse is 67, blood pressure 130/70, respirations 17. CHEST: Clear to auscultation. CARDIOVASCULAR: S1, S2. ABDOMEN: Soft. LEGS: Status post surgery. LABORATORY DATA: Reviewed. ASSESSMENT: 1. Status post left hip arthroplasty. 2. Gastroesophageal reflux disease. 3. Hypertension. 4. Hyperlipidemia. 5. Multiple medical issues. RECOMMENDATIONS: Recommend to continue current medications, continue symptomatic treatment. DVT prophylaxis per Orthopedic Surgery. Resume the home medications. Follow with primary physician closely. MMODL / IJN: [id number] /
== END 2023-06-21 13:59 | disposition home health service (06) ==
LOC: OR 05:37 → EDSTATUS 07:30 → 4SSUR 09:18 → OR 06-21 10:50 → 4SSUR 06-21 10:50
PROVIDERS: ADMIT Orthopaedic Surgery; ATTEND Orthopaedic Surgery
DX: M16.12 Unilateral primary osteoarthritis, left hip (principal); I10 Essential (primary) hypertension; E78.5 Hyperlipidemia, unspecified; K21.9 Gastro-esophageal reflux disease without esophagitis; I25.10 Atherosclerotic heart disease of native coronary artery without angina pectoris; D64.9 Anemia, unspecified; Z79.899 Other long term (current) drug therapy; Z87.19 Personal history of other diseases of the digestive system; Z87.891 Personal history of nicotine dependence; Z96.652 Presence of left artificial knee joint; Z96.641 Presence of right artificial hip joint
CPT/HCPCS: 96372; 97161; 64447; 85025; 73501; 27130; G0378; C1776; J2250; J0330; J1100; J2710; J0690 ×2; J2405; J2001; J1650; J3010; J1170 ×3; J2795; J2704

== ENCOUNTER → 2023-09-12 | Outpatient (CLI) | payer OTHER ==
[2023-09-12 14:36] LABS: Basophils # (A) 0.06 X 10*3/uL (0.00-0.10); Basophils % (A) 0.7 %; Eosinophils # (A) 0.27 X 10*3/uL (0.04-0.35); Eosinophils % (A) 3.1 %; HCT 43.2 % (39.6-50.0); HGB 13.3 g/dL (13.0-17.0); Lymphocytes # (A) 2.67 X 10*3/uL (0.90-5.00); MCH 26.3 pg (27.0-32.0); MCHC 30.8 g/dL (32.0-37.0); MCV 85.4 FL (80.0-97.0); Mean Platelet Volume 9.1 FL (9.5-12.2); Monocytes # (A) 0.74 X 10*3/uL (0.20-1.00); Monocytes % (A) 8.6 %; NRBC Per 100 WBC 0 X 10*3/uL (0.00-0.01); Neutrophils # (A) 4.84 X 10*3/uL (1.80-7.70); Neutrophils % (A) 56.4 %; Platelet Count 506 X 10*3/uL (140-440); RBC 5.06 X 10*6/uL (4.40-5.60)
[2023-09-12 14:49] LABS: Anion Gap 12.1 mmol/L (4.00-12.00); Carbon Dioxide 21.9 mmol/L (21.6-31.8); Potassium 4.9 mmol/L (3.5-5.5)
== END | disposition home or self-care (01) ==
LOC: LABPAT 09:56
PROVIDERS: ATTEND Orthopaedic Surgery
DX: Z01.812 Encounter for preprocedural laboratory examination (principal); M24.662 Ankylosis, left knee
CPT/HCPCS: 80051; 85025

== ENCOUNTER → 2023-09-15 | Day surgery (SDC) | payer OTHER ==
--- NOTE | 2023-09-14 22:46 | HP ---
HISTORY AND PHYSICAL DATE OF SCHEDULED SURGERY: 09/15/2023. HISTORY OF PRESENT ILLNESS: Jeancarlos Carreno is a 58-year-old gentleman, seen with persistent left knee adhesions after having undergone total knee arthroplasty and manipulation under anesthesia with recurrence of adhesions. We discussed options. He elected to proceed with left knee arthroscopy with lysis of adhesions and debridement. Consent was obtained. PAST MEDICAL HISTORY: Hypertension, hyperlipidemia. SURGICAL HISTORY: Bilateral knee arthroplasty, total hip arthroplasty. DAILY MEDICATIONS: 1. Lipitor. 2. Losartan. 3. Aspirin. 4. Vitamins. ALLERGIES: None. SOCIAL HISTORY: Denies tobacco use. PHYSICAL EVALUATION OF LEFT KNEE: His left knee range of motion is -6 to 30. He has no effusion. His previous incision is well healed. Ligaments are stable. Distal neurovascular exam is intact. IMAGING STUDIES: Radiographs of the left knee revealed a stable appearing total knee arthroplasty. IMPRESSION: 1. Left knee adhesions with history of total knee arthroplasty. 2. Hypertension. 3. Hyperlipidemia. PLAN: Left knee arthroscopy, lysis of adhesions, and debridement. MMODL / IJN: [id number] /
[~2023-09-15] MED LIST changes: +HYDROmorphone (PF) 1 MG/ML ONE; +KETOROLAC 15 MG/ML 1 ML VIAL ONE; +LIDOCAINE 1% (10MG/ML) FOR IV START INTRADERMA PRN; +LIDOCAINE 1% INJ 10MG/ML (20 ML MDV) ONE; +MIDAZOLAM 2 MG/2 ML VIAL ONE; +PROPOFOL 10 MG/ML 20 ML VIAL IV ONE; -TRANEXAMIC 1,000 MG/100ML-NACL 1,000 MG in SALINE 1 100ML.BAG IVPB PRN; +droPERidol 5 MG/2 ML VIAL IVP ONE; +fentaNYL (PF) 50 MCG/ML 2 ML AMP ONE
[2023-09-15] MEDS: IV FLUID CONTINUATION 1,000 ML IV ONE (10:23)
[2023-09-15 10:35] VITALS: RESP 16
[2023-09-15] MEDS: DEXAMETHASONE SOD PHOSPHATE 4 MG/ML 1 ML VIAL IV ONE (10:37)
[2023-09-15] MEDS: ONDANSETRON 4 MG/2 ML VIAL IVP ONE (10:37)
[2023-09-15] MEDS: LACTATED RINGERS 1,000 ML IV SCH (10:37)
[2023-09-15] MEDS: SCOPOLAMINE 1 MG/72 HR PATCH TRANSDERM ONE (10:38)
[2023-09-15 10:41] LABS: Glucose,Whole Blood 91 mg/dL (70-110)
[2023-09-15] MEDS: BUPIVACAINE (PF) 0.25% 30 ML VIAL SQ ONE (11:07)
--- NOTE | 2023-09-15 11:56 | P.OP ---
Date of Procedure: 09/15/23 Preoperative Diagnosis: Left knee adhesions with history of previous total knee arthroplasty Postoperative Diagnosis: Left knee adhesions with history of previous total knee arthroplasty Procedure(s) Performed: Arthroscopy left knee with extensive lysis of adhesions Anesthesia: ROSALIE Surgeon: Calvin Guerrero Estimated Blood Loss (ml): 6 Pathology: none sent Condition: stable Disposition: PACU Indications for Procedure: 58-year-old patient seen with persistent left knee adhesions with history of previous total knee arthroplasty. He had undergone manipulation under anesthesia without improvement in his range of motion. We discussed arthroscopy with lysis of adhesions. He was agreeable. Consent was obtained. Operative Findings: See description of procedure Description of Procedure: Patient was taken to the operative suite. Patient underwent a general anesthetic by the department of anesthesia. Patient was given preoperative antibiotics. The left lower extremity was placed in a well-padded arthroscopic leg munguia. The left leg was prepped and draped in the normal sterile orthopedic fashion. A lateral parapatellar and suprapatellar incision was made. Trochars were inserted. Arthroscopy was initiated. There were extensive adhesions noted throughout the suprapatellar compartment. I made a medial parapatellar incision. I used a trocar. I now used a motorized shaver and began debriding/lysing the adhesions. I used our ArthroCare wand to help with this as well. I noted at this point after performing an extensive amount of lysis adhesions with suprasellar compartment we had a stable patellar and femoral component. The scope was swung into the medial gutter. I encountered significant adhesions there as well. I reduced my motorized shaver and I performed an excision/lysis of adhesions therI now introduced my ablator and began ablated tissue there and releasing some of medial retinacular tissue. The polyethylene was now seen and noted to be stable. The tibial component appeared stable. I now moved the scope into the lateral gutter. I again noted an extensive amount adhesions there. I performed a debridement/lysis of adhesions there. I introduced my ArthroCare cautery device and released the lateral retinacular area as well. I now 6 guided the scope into the anterior aspect of the knee where I encountered even more adhesions. I debrided those out. I now took 1 more look around the entire knee. I again noted all the components to be stable and good decompression of the extensive adhesions. Instruments were now removed from the joint. The joint was infiltrated with .25% Marcaine. Repaired the portal sites with Steri-Strips. Sterile dressings were applied. The patient was placed into a LÁZARO hose. No tourniquet was utilized. The patient was awakened, transferred to a bed and taken to recovery stable satisfactory condition.
[2023-09-15 12:01] VITALS: TEMP 96.8
[2023-09-15] MEDS: HYDROmorphone 0.5 MG/0.5 ML SYRINGE IVP PRN (12:15)
[2023-09-15 12:56] LABS: Glucose,Whole Blood 87 mg/dL (70-110)
[2023-09-15 13:43] VITALS: BP 135/79; PULSE 54
== END | disposition home or self-care (01) ==
LOC: OR 09:57
PROVIDERS: ATTEND Orthopaedic Surgery
DX: M24.662 Ankylosis, left knee (principal); I10 Essential (primary) hypertension; E78.5 Hyperlipidemia, unspecified; Z98.890 Other specified postprocedural states; Z79.82 Long term (current) use of aspirin; Z79.899 Other long term (current) drug therapy
CPT/HCPCS: 29884; J2250; J1100; J0690; J2405; J2001; J3010; J1170 ×2; J1885; J2704; J0665

== ENCOUNTER → 2024-02-06 | Outpatient (CLI) | payer OTHER ==
--- NOTE | 2024-02-06 12:57 | CT ---
EXAMINATION TYPE: CT chest wo con CT DLP: 494.5 mGycm, Automated exposure control for dose reduction was used. DATE OF EXAM: 02/06/2024 11:39 AM COMPARISON: CT low-dose lung 05/30/2023, 06/04/2022 CLINICAL INDICATION:Male, 58 years old with history of R91.1 LUNG NODULE; PHH, lung nodule TECHNIQUE: Multiple axial images were obtained through the chest without IV contrast. Lack of IV or o ral contrast limits evaluation of solid and hollow organ viscera. . Coronal and sagittal reformats re viewed. FINDINGS: LUNGS/ PLEURA: No pleural effusion, pneumothorax, or focal consolidation. Resolution of previously se en left lung nodular opacities. Moderate centrilobular and paraseptal emphysematous changes. AIRWAY: Patent and unremarkable.. HEART: Size within normal limits. No pericardial effusion. Moderate to severe coronary artery calcifi cations. Severe aortic valvular calcifications. MEDIASTINUM: No gross evidence of adenopathy. VASCULATURE: No aortic aneurysm. Mild atherosclerotic calcification of the aorta and its branches. MUSCULOSKELETAL: No acute osseous abnormalities. DISH of the lower thoracic spine. SOFT TISSUES/LYMPH NODES: Unremarkable. LOWER NECK: No significant findings. UPPER ABDOMEN: Small hiatal hernia. Calcified granuloma within the spleen. IMPRESSION: 1. Resolution of previously seen left lung nodular opacities likely representing a prior infectious/i nflammatory process. No clinically significant pulmonary nodule. 2. Moderate COPD changes redemonstrated. 3. Severe aortic valve leaflet calcifications redemonstrated. 4. Moderate to severe coronary artery calcifications redemonstrated. [facility], , 02/06/2024 12:55 PM
== END | disposition home or self-care (01) ==
LOC: RADCTMAIN 11:19
PROVIDERS: ATTEND Internal Medicine Hematology & Oncology
DX: D47.3 Essential (hemorrhagic) thrombocythemia (principal); D51.9 Vitamin B12 deficiency anemia, unspecified; E61.1 Iron deficiency; I25.10 Atherosclerotic heart disease of native coronary artery without angina pectoris; J44.9 Chronic obstructive pulmonary disease, unspecified; R91.1 Solitary pulmonary nodule
CPT/HCPCS: 71250

== ENCOUNTER → 2024-02-06 | Outpatient (CLI) | payer OTHER ==
[2024-02-06 15:32] LABS: Blood Urea Nitrogen 11.3 mg/dL (9.0-27.0); Carbon Dioxide 25.2 mmol/L (21.6-31.8); Chloride 102 mmol/L (96-109); Potassium 5.3 mmol/L (3.5-5.5); Sodium 137 mmol/L (135-145)
[2024-02-06 15:44] LABS: HCT 46.7 % (39.6-50.0); HGB 14.4 g/dL (13.0-17.0); MCH 26.3 pg (27.0-32.0); MCHC 30.8 g/dL (32.0-37.0); MCV 85.2 FL (80.0-97.0); Mean Platelet Volume 9.3 FL (9.5-12.2); NRBC Per 100 WBC 0 X 10*3/uL (0.00-0.01); Platelet Count 494 X 10*3/uL (140-440); RBC 5.48 X 10*6/uL (4.40-5.60); RDW 16.5 % (11.5-14.5); WBC 8.25 X 10*3/uL (4.50-10.00)
== END | disposition home or self-care (01) ==
LOC: LABPAT 11:41
PROVIDERS: ATTEND Student in an Organized Health Care Education/Training Program
DX: Z01.818 Encounter for other preprocedural examination (principal); I35.0 Nonrheumatic aortic (valve) stenosis
CPT/HCPCS: 36415; 80051; 82565; 84520; 85027

== ENCOUNTER 2024-02-13 10:21 | Day surgery (SDC) | payer OTHER ==
[2024-02-09 13:13] VITALS: BMI 32.8
[~2024-02-13 10:21] MED LIST changes: +ALPRAZolam 0.25 MG TAB PO PRN; +ALPRAZolam 0.5 MG TAB PO PRN; +ASPIRIN 325 MG TAB PO STA; +ATORVASTATIN 80 MG TAB PO STA; +HEPARIN SODIUM,PORCINE (1 ML) 2,500 UNIT in SODIUM CHLORIDE 0.9% 250 ML IRRIGATION PRN; +HEPARIN SODIUM,PORCINE 10,000 UNIT in SODIUM CHLORIDE 0.9% 1,000 ML IRRIGATION PRN; -HYDROmorphone (PF) 1 MG/ML ONE; -KETOROLAC 15 MG/ML 1 ML VIAL ONE; -LIDOCAINE 1% (10MG/ML) FOR IV START INTRADERMA PRN; -LIDOCAINE 1% INJ 10MG/ML (20 ML MDV) ONE; -MIDAZOLAM 2 MG/2 ML VIAL ONE; +NITROGLYCERIN SL TABS 0.4 MG TAB SUBLINGUAL PRN; -PROPOFOL 10 MG/ML 20 ML VIAL IV ONE; -droPERidol 5 MG/2 ML VIAL IVP ONE; -fentaNYL (PF) 50 MCG/ML 2 ML AMP ONE
[2024-02-13 10:49] LABS: Glucose,Whole Blood 101 mg/dL (70-110)
[2024-02-13 10:50] VITALS: RESP 18; TEMP 98.6
[2024-02-13] MEDS: SODIUM CHLORIDE 0.9% 1,000 ML in EMPTY BAG 1 BAG IV SCH (10:50)
[2024-02-13] MEDS: IV FLUID CONTINUATION 1,000 ML IV ONE (10:50)
[2024-02-13 10:59] LABS: Anisocytosis Slight; Basophils % (A) 1 %; Eosinophils # (A) 0.4 k/uL (0-0.7); Eosinophils % (A) 6 %; HCT 44.8 % (39.0-53.0); HGB 13.9 gm/dL (13.0-17.5); Hypochromasia Slight; Lymphocytes # (A) 2.5 k/uL (1.0-4.8); Lymphocytes % (A) 34 %; MCH 26.3 pg (25.0-35.0); MCHC 31.1 g/dL (31.0-37.0); MCV 84.6 fL (80.0-100.0); Mean Platelet Volume 6.7; Monocytes # (A) 0.7 k/uL (0-1.0); Monocytes % (A) 9 %; Neutrophils # (A) 3.7 k/uL (1.3-7.7); Neutrophils % (A) 49 %; Platelet Count 466 k/uL (150-450); RDW 16.3 % (11.5-15.5); WBC 7.4 k/uL (3.8-10.6)
[2024-02-13] MEDS: HEPARIN SODIUM,PORCINE 10,000 UNIT in SODIUM CHLORIDE 0.9% 1,000 ML IRRIGATION ONE (11:50)
[2024-02-13] MEDS: HEPARIN SODIUM,PORCINE (1 ML) 2,500 UNIT in SODIUM CHLORIDE 0.9% 250 ML IRRIGATION ONE (11:51)
[2024-02-13] MEDS: fentaNYL (PF) 50 MCG/ML 2 ML AMP IVP ONE (12:03)
[2024-02-13] MEDS: MIDAZOLAM 2 MG/2 ML VIAL IVP ONE (12:03)
[2024-02-13] MEDS: LIDOCAINE 1% INJ 10MG/ML (20 ML MDV) SQ ONE (12:06)
[2024-02-13] MEDS: VERAPAMIL SYRINGE (5 MG/10 ML) INTRAARTER ONE (12:08)
[2024-02-13] MEDS: HEPARIN SODIUM 1,000 UN/ML (10ML VL) IVP ONE (12:09)
[2024-02-13] MEDS: IOPAMIDOL-370 100ML BTL INJ ONE (12:34)
[2024-02-13] MEDS ORDERED: RX INFO: IV CONTRAST WAS GIVEN 1 EACH MISC MISCELLANE PRN (13:24)
[2024-02-13] MEDS ORDERED: SODIUM CHLORIDE 0.9% 1,000 ML IV SCH (13:30)
--- NOTE | 2024-02-13 13:34 | P.CARDCATH ---
Date of Procedure: 02/13/24 Description of Procedure: DIAGNOSTIC CORONARY ANGIOGRAPHY and LEFT HEART CATH REPORT PROCEDURES PERFORMED: Left heart catheterization Selective coronary angiography Moderate conscious sedation [25] mins [Ultrasound assisted] Right radial access INDICATION: [Unstable angina] CONSENT: I have explained the procedural steps of above-mentioned procedures in layman's terms to the patient. I discussed the risks (including but not limited to stroke, emergent vascular or cardiac surgery or ), benefits and alternative therapies for the above-mentioned procedure. I discussed the risks of sedation/analgesia and blood product administration (if indicated). The patient has indicated understanding and acceptance of these risks. Conscious Sedation: Patient's ECG, heart rate, blood pressure, pulse oximetry were monitored throughout the duration of procedure under my direct supervision. [2] mg Versed and [50] mcg Fentanyl were used for induction of moderate conscious sedation. Total duration of moderate concious sedation [25] minutes. PROCEDURE: After explaining the risks, benefits and alternatives of the above mentioned procedures in detail to the patient, informed consent was obtained. Patient was taken to the catheterization lab, prepped and draped in usual sterile fashion using universal precuations. Ultrasound was used to identify the radial artery. 1% lidocaine was infiltrated over the right radial artery. A 6-Australian sheath was placed and secured in the right radial artery using modified Seldinger technique. The sheath was flushed and 5 mg verapamil was administered intra-arterially. J tipped wire was advanced under fluoroscopic guidance. Once the wire tip reached aortic root [5000] units of IV heparin was given. Over the wire JR4 diagnostic catheter was advanced. The wire in place the catheter was manipulated to cross the aortic valve and entered into LV under flu oroscopy guidance. The wire was removed and the catheter was flushed. LV pressures were obtained and pullback was performed under fluoroscopy. Catheter was manipulated to selectively engage the right coronary ostium. Right coronary angiography was performed in different angiographic projections. The JR4 diagnostic catheter was exchanged for a JL 3.5 diagnostic catheter over the J-wire. The wire was removed, catheter was flushed and manipulated under fluoroscopy to selectively engaged the left coronary ostium. Left coronary angioplasty was performed in different angiographic projections. Catheter was removed over the wire. Radial sheath was flushed. The right radial sheath was removed and a TR band was placed with excellent patent hemostasis was achieved. The patient tolerated the procedure well. Patient was transported back to the post catheterization holding area in stable condition. Angiographic images were reviewed in detail. Complications: None Challenges: None Catheter used JR4, JL 3.5 Estimated blood loss less than 10 mL Total radiation: To 41 mGy Total fluoroscopy time 4.1 minutes Total contrast, 60 mL Isovue HEMODYNAMICS: Aortic Pressure: 112/60 mmHg. LV pressure: 148/7 mmHg. LVEDP 18 mmHg. Peak to peak gradient of 33 mmHg, mean gradient across aortic valve 30 mmHg puts patient at moderate aortic stenosis. SELECTIVE CORONARY ARTERIOGRAPHY: LEFT MAIN: The left main is short and large caliber vessel. It bifurcates into the LAD and circumflex. Left main appears angiographically normal. LEFT ANTERIOR DESCENDING CORONARY ARTERY: LAD is a large caliber vessel which wraps around to the apex. Proximal LAD has eccentric calcified tubular 60% stenosis. Mid LAD gives rise to a medium size septal branch and a large size diagonal branch. LAD has mild luminal irregularities. Distal LAD has mild luminal irregularities. Diagonal artery is large caliber and has 20% mild luminal irregularities. LEFT CIRCUMFLEX CORONARY ARTERY: LCx is large caliber and is a dominant vessel. Proximal LCx gives rise to a large OM1 branch which gives a small superior branch and a large inferior branch. The large inferior branch of the OM1 vessel has mild irregularities. Mid LCx has 40% focal calcific disease. Mid LCx gives rise to small OM 2 branch. Mid LCx continues to form a large AV groove branch which gives rise to a PDA and PL branch. PDA is medium caliber and has 40% focal disease in mid segment. PL branch is medium caliber and has mild luminal irregularities RIGHT CORONARY ARTERY: Nondominant vessel and small caliber. RCA bifurcates into 2 RV marginal branches. Origin of the to RV marginal branch has 70% disease. IMPRESSION: Moderate aortic stenosis, mean gradient 30 mmHg 60% calcific tubular eccentric proximal LAD disease. MOISE-3 flow 40% mid LCx stenosis Nondominant RCA, with 70% disease at the origin of RV marginal branch Mild diffuse luminal irregularities otherwise PLAN: Aggressive risk factor modification per most recent ACC/AHA guidelines. 125 cc fluids for 4 hours Discharge home in 4 hours Follow-up in the office in 1-2 weeks. Recommend aspirin, Lipitor 40 mg, metoprolol 12.5 mg daily, losartan 50, HCTZ 12.5 mg daily. Recommend outpatient QUOC to evaluate the aortic valve in further detail. The findings and the future plan were discussed with the patient's in deta il Performing Physician Bertrand Sosa MD, FACC, VI
[2024-02-13 16:24] VITALS: BP 143/65; PULSE 56
== END 2024-02-13 16:41 | disposition home or self-care (01) ==
LOC: CATHCVL 10:21
PROVIDERS: ATTEND Student in an Organized Health Care Education/Training Program
DX: I25.110 Atherosclerotic heart disease of native coronary artery with unstable angina pectoris (principal); I10 Essential (primary) hypertension; E78.5 Hyperlipidemia, unspecified; F17.210 Nicotine dependence, cigarettes, uncomplicated; Z79.82 Long term (current) use of aspirin; Z79.02 Long term (current) use of antithrombotics/antiplatelets; Z79.1 Long term (current) use of non-steroidal anti-inflammatories (NSAID); Z79.899 Other long term (current) drug therapy
CPT/HCPCS: 93458; 85025; 99152; 99153; C1769 ×2; C1894; J2250; J1644 ×3; J2003; J3010; Q9967

== ENCOUNTER 2024-08-06 06:20 | Day surgery (SDC) | payer OTHER ==
[2024-08-06] MEDS: IV FLUID CONTINUATION 1,000 ML IV ONE (07:05)
[2024-08-06 07:09] VITALS: RESP 16; TEMP 97.9
[2024-08-06] MEDS: BENZOCAINE SPRAY 1 EACH MUCOUS MEM ONE (07:53)
[2024-08-06] MEDS: fentaNYL (PF) 50 MCG/ML 2 ML AMP IVP ONE (07:53)
[2024-08-06] MEDS: MIDAZOLAM 2 MG/2 ML VIAL IVP ONE (07:53)
--- NOTE | 2024-08-06 08:51 | P.TEE ---
Date of Procedure: 08/06/24 Description of Procedure(s): Procedure performed: 1. Transesophageal Echocardiogram with color flow doppler, pulsed wave doppler and continuous wave doppler, (CPT 28875, +[id number], +[id number]) 2. Moderate conscious sedation. Sedation time 8 mins. (CPT 44643) 3. Bubble Study Indications: Moderate to severe aortic stenosis with poorly visualized aortic valve onset of his echocardiogram Consent: I have discussed the risks, benefits and alternative therapies for the above-mentioned procedure. The patient has indicated understanding and acceptance of the risks of the procedure. Signed consent was obtained and was placed in the paper chart. Procedural Steps: Timeout was performed in usual fashion. Patient's heart rate, blood pressure, oxygen saturation and ECG were monitored. Benzocaine was sprayed liberally in the back of the throat. Bite block was placed between the jaw. 2 mg of Versed and 50 mcg of Fentanyl were administered intravenously. After achieving appropriate moderate conscious sedation, QUOC probe was advanced without difficulty and without any immediate complications to the esophagus. QUOC study was performed with color flow doppler, pulsed wave doppler and continuous wave doppler. The probe was then removed. Patient tolerated the procedure well. Patient was transferred to the post procedure area in stable and satisfactory condition. Throughout the procedure patient's heart rate, blood pressure, oxygen saturation and ECG were monitored. Total sedation time 8 mins. Complications: none FINDINGS Left Atrium: Mild left atrial dilatation, normal forward flow in pulmonic vein, no thrombus Left Atrial Appendage: No evidence of thrombus or mass seen in BRANDAN Inter atrial septum: Lipomatous interatrial septum with no evidence of [id number]-btiv shunting on bubble study Left Ventricle: Normal global LV size and systolic function Right Atrium: Mild RA dilatation Right Ventricle: Normal global RV size and systolic function Aortic Valve: Calcified trileaflet aortic valve. Restricted noncoronary cusp with limited mobility. Mobile left and right coronary cusp with evidence of moderate aortic stenosis and eccentric moderate aortic regurgitation. Mean gradient 30 mmHg Mitral Valve: Struturally normal. Trace mitral regurgitation Pulmonic Valve: No significant stenosis or regurgitation Tricuspid Valve: No significant stenosis or regurgitation Ascending aorta, Aortic root and Aortic arch: Aortic root measured 3.8 cm, no significant atheroma, mild intimal thickening noticed Descending aorta: Mild intimal thickening. No evidence of large atheroma or bulky calcification No pericardial effusion CONCLUSION: Calcified trileaflet aortic valve with restricted noncoronary cusp with moderate aortic stenosis and moderate eccentric aortic regurgitation. Mean gradient 30 mmHg Normal size aortic root Normal global LV size and systolic function Mild biatrial dilatation No other significant valvular dysfunction No thrombus in BRANDAN or [place] Bertrand Sosa MD, RPVI, FACC
[2024-08-06 10:22] VITALS: BP 110/62; PULSE 53
== END 2024-08-06 09:43 | disposition home or self-care (01) ==
LOC: CATHCVL 06:20
PROVIDERS: ATTEND Student in an Organized Health Care Education/Training Program
DX: I35.2 Nonrheumatic aortic (valve) stenosis with insufficiency (principal); Z82.49 Family history of ischemic heart disease and other diseases of the circulatory system; I25.10 Atherosclerotic heart disease of native coronary artery without angina pectoris; I10 Essential (primary) hypertension; E78.5 Hyperlipidemia, unspecified; I45.10 Unspecified right bundle-branch block; F17.210 Nicotine dependence, cigarettes, uncomplicated; Z79.82 Long term (current) use of aspirin
CPT/HCPCS: 93312; 93320; 93325; J2250; J3010